=== PATIENT | male | born 1945 | race Caucasian/White ===

== ENCOUNTER 2016-08-29 08:26 | Outpatient (CLI) | payer MEDICARE, OTHER ==
[~2016-08-29 08:26] MED LIST: ACETAMINOPHEN 325 MG TABLET PO PRN; DEXAMETHASONE SOD PHOSPHATE IV PRN; DIPHENHYDRAMINE HCL 25 MG in NORMAL SALINE 50 ML INJ PRN; DIPHENHYDRAMINE HCL 25 MG in NORMAL SALINE 50 ML IV PRN; ELOTUZUMAB IV PRN; FAMOTIDINE INJ/PF 20 MG/2 ML SDV IV PRN; NORMAL SALINE 250 ML IV PRN; NORMAL SALINE IV PRN
[2016-08-29 09:07] VITALS: BP 150/62
== END 2016-08-29 12:30 | disposition home or self-care (01) ==
LOC: II 08:26 → 5TH 08:30 → II 12:30
PROVIDERS: ATTEND Internal Medicine
PROC: 3E03305 Introduction of Other Antineoplastic into Peripheral Vein, Percutaneous Approach (ICD-10-PCS; principal; 2016-08-29)
PROC: 3E033GC Introduction of Other Therapeutic Substance into Peripheral Vein, Percutaneous Approach (ICD-10-PCS; 2016-08-29)
DX: Z51.11 Encounter for antineoplastic chemotherapy (principal); C90.02 Multiple myeloma in relapse
CPT/HCPCS: 96413; 96415; 96367; A9270; J1200; J7050; S0028; J1100; C9477; 96365; 96375

== ENCOUNTER 2016-09-02 19:51 | Observation (INO) | payer MEDICARE, OTHER ==
[2016-09-02] MEDS ORDERED: NORMAL SALINE 1000 ML 1,000 ML IV PRN (20:17)
--- NOTE | 2016-09-02 20:18 | ER Document Report ---
ED Fall - General Stated Complaint: FALL/ALTERED MENTAL STATUS Time seen by provider: 20:18 Mode of Arrival: Stretcher Information source: Relative TRAVEL OUTSIDE OF THE [place] IN LAST 30 DAYS: No - HPI Patient complains to provider of: frequent falls, generalized weakness, confusion Occurred: Other - 2-3 days Where: Home Context: Lost balance Associated symptoms: Difficulty walking Quality of pain: No pain Notes: Patient is a 70-year-old male with a history of multiple myeloma, diabetes and hypertension, brought to the emergency room by for complaints of generalized weakness with frequent falls over the past few days, patient is currently in chemotherapy treatment for his multiple myeloma which he takes orally on a daily basis, patient's reports that over the past 2 days he has been unable to get out of bed due to inability to move his lower extremities , it is difficult to ascertain whether this is due to weakness or neurological disorder, patient himself is a poor historian, unable to provide any details as he cannot remember the falls or how they occurred, he denies any pain at present time and is able to move all extremities without difficulty, denies any recent illness, no nausea, vomiting or diarrhea, no fever or chills, he does have a slight nonproductive cough - Related data Allergies/Adverse Reactions: No Known Allergies Allergy (Unverified 08/15/16 14:33) Home Medications: Current Home Medications Amoxicillin [Amoxicillin] 500 mg PO PRN PRN 09/03/16 [History] Chlorhexidine Gluconate [Periogard 0.12% Oral Rinse 15 ml] 15 ml MM DAILY [History] Dexamethasone [Dexamethasone] 4 mg PO DAILY 09/03/16 [History] Past Medical History - General Information source: Relative - - Social History Smoking Status: Never Smoker Family History: Reviewed & Not Pertinent Review of Systems - Review of Systems Constitutional: Weakness EENT: No symptoms reported Cardiovascular: No symptoms reported Respiratory: Cough Gastrointestinal: No symptoms reported Genitourinary: No symptoms reported Male Genitourinary: No symptoms reported Musculoskeletal: See HPI Skin: No symptoms reported Hematologic/Lymphatic: No symptoms reported Neurological/Psychological: See HPI -: Yes All other systems reviewed and negative Physical Exam - Vital signs Vitals: Temp Pulse Resp BP Pulse Ox 99.1 F 102 H 17 151/66 H 94 09/02/16 19:57 09/02/16 19:57 09/02/16 19:57 09/02/16 19:57 09/02/16 19:57 Interpretation: Tachycardic - General General appearance: Appears well, Alert In distress: None - HEENT Head: Normocephalic, Atraumatic Eyes: Normal Conjunctiva: Normal Extraocular movements intact: Yes Eyelashes: Normal Pupils: PERRL Mucous membranes: Dry - Respiratory Respiratory status: No respiratory distress Chest status: Nontender Breath sounds: Normal Chest palpation: Normal - Cardiovascular Rhythm: Regular Heart sounds: Normal auscultation Murmur: No - Abdominal Inspection: Normal Distension: No distension Bowel sounds: Normal Tenderness: Nontender Organomegaly: No organomegaly - Back Back: Normal, Nontender - Extremities General upper extremity: Normal inspection, Nontender, Normal color, Normal ROM , Normal temperature General lower extremity: Normal inspection, Nontender, Normal color, Normal ROM , Normal temperature, Normal weight bearing. No: Sowmya's sign - Neurological Cognition: Confused Orientation: Disoriented to events Loco Coma Scale Eye Opening: Spontaneous [place] Coma Scale Verbal: Confused Loco Coma Scale Motor: Obeys Commands [place] Coma Scale Total: 14 Speech: Normal Motor strength normal: LUE, RUE, LLE, RLE Sensory: Normal - Psychological Associated symptoms: Normal affect, Normal mood - Skin Skin Temperature: Warm Skin Moisture: Dry Skin Color: Normal Course - Re-evaluation Re-evalutation: 09/03/16 01:13 Patient is unable to ambulate, he remains confused and is slow to answer questions, I discussed with him and at bedside the possibility of admission , patient states that he does not wish to be admitted, however given his current state of confusion and his concerning symptoms I do not believe he has the capacity to make such a decision at the present time, his at bedside is agreeable that patient needs to be admitted for further evaluation and treatment - Vital Signs Vital signs: Temp Pulse Resp BP Pulse Ox 98.8 F 96 14 149/78 H 96 09/03/16 01:22 09/03/16 01:22 09/03/16 01:22 09/03/16 01:22 09/03/16 01:22 - Laboratory Result Diagrams: 09/02/16 21:18 09/02/16 21:18 Laboratory results interpreted by me: 09/02/16 09/02/16 09/02/16 21:18 21:18 22:53 RDW 16.8 H Monocytes % (Manual) 27 H Glucose 117 H Calcium 7.8 L Total Protein 5.3 L Albumin 2.9 L Urine Glucose (UA) 150 H Urine Urobilinogen 4.0 H - Diagnostic Test Radiology reviewed: Image reviewed, Reports reviewed - EKG Interpretation by Me EKG shows normal: Sinus rhythm Rate: Normal - 99 Rhythm: NSR Debary/QRS: RBBB - Consults Dr Faith Time consulted: 20:18 Reason for consultation: 09/02/16 20:18 Patient with a history of multiple myeloma, currently on oral chemotherapy Consulted provider: other Discharge - Discharge Clinical Impression: Acute encephalopathy, Frequent falls Condition: Fair Disposition: ADMITTED OBSERVATION Admitting Provider: Hospitalist Unit Admitted: Telemetry
[2016-09-02 21:36] LABS: HEMATOCRIT 47.5 % (37.9-51.0); HEMOGLOBIN 15.9 g/dL (13.5-17.0); HGB HCT DIFFERENCE 0.2; MEAN CORPUSCULAR HEMOGLOBIN 30.2 pg (27.0-33.4); MEAN CORPUSCULAR HGB CONC 33.6 g/dL (32.0-36.0); MEAN CORPUSCULAR VOLUME 90 fl (80-97); RED BLOOD COUNT 5.28 10^6/uL (4.35-5.55); RED CELL DISTRIBUTION WIDTH 16.8 % (11.5-14.0); WHITE BLOOD COUNT 4.4 10^3/uL (4.0-10.5)
[2016-09-02 21:55] LABS: ALANINE AMINOTRANSFERASE 28 U/L (21-72); ALBUMIN 2.9 g/dL (3.5-5.0); ALKALINE PHOSPHATASE 83 U/L (38-126); ANION GAP 9 (5-19); ASPARTATE AMINO TRANSFERASE 25 U/L (17-59); BLOOD UREA NITROGEN 18 mg/dL (7-20); CALCIUM 7.8 mg/dL (8.4-10.2); CARBON DIOXIDE 25 mmol/L (22-30); CHLORIDE 106 mmol/L (98-107); CREATININE RESULT 1.19 mg/dL (0.52-1.25); GLUCOSE 117 mg/dL (75-110); POTASSIUM 3.9 mmol/L (3.6-5.0); TOTAL PROTEIN 5.3 g/dL (6.3-8.2)
[2016-09-02 22:01] LABS: BASOPHILS % (MANUAL) 0 % (0-2); EOSINOPHILS % (MANUAL) 4 % (0-6); LYMPHOCYTES % (MANUAL) 16 % (13-45); TOTAL CELLS COUNTED 100
[2016-09-02 22:03] LABS: ANISOCYTOSIS 1+; TOXIC GRANULATION SLIGHT
[2016-09-03 00:08] LABS: APPEARANCE,URINE CLEAR; BILIRUBIN,URINE NEGATIVE (NEGATIVE); GLUCOSE, URINE 150 mg/dL (NEGATIVE); KETONES,URINE NEGATIVE (NEGATIVE); LEUKOCYTE ESTERASE,URINE NEGATIVE (NEGATIVE); NITRITE,URINE NEGATIVE (NEGATIVE); PROTEIN,URINE NEGATIVE (NEGATIVE); URINE SPECIFIC GRAVITY 1.017
[2016-09-03 01:47] LABS: MAGNESIUM 2.2 mg/dL (1.6-2.3)
[2016-09-03 01:50] LABS: ALCOHOL < 10 mg/dL (NONE DETECTED)
[2016-09-03 02:34] LABS: URINE BARBITURATES SCREEN NEGATIVE; URINE METHADONE SCREEN NEGATIVE; URINE PHENCYCLIDINE SCREEN NEGATIVE
[2016-09-03] MEDS ORDERED: NORMAL SALINE 1000 ML 1,000 ML IV PRN (07:48)
[2016-09-03 09:05] LABS: CHOLESTEROL 113.84 mg/dL (0-200); Direct HDL 24 mg/dL (>40); TRIGLYCERIDES 151 mg/dL (<150)
[2016-09-03 09:16] LABS: DIRECT LDL 73 mg/dL (<100); VLDL CHOLESTEROL 30.2 mg/dL (10-31)
[2016-09-03] MEDS ORDERED: ACETAMINOPHEN 325 MG TABLET PO PRN (10:16)
--- NOTE | 2016-09-03 10:16 | PDOC H&P ---
History of Present Illness Admission Date/PCP: 09/03/16 07:[address] Blakely, [facility] [address] Faith Patient complains of: altered mental status, gen weak, inability to walk. History of Present Illness: OTTO MIRZA is a 70 year old male with underlying hypothyroidism , and insulin-dependent diabetes mellitus, currently on oral chemotherapy for long-standing multiple myeloma, brought to the emergency room for evaluation of above complaints by his . Patient has been discussed with emergency room physician who evaluated the patient. Patient is globally disoriented and is able to provide no history whatsoever in terms of acute or chronic events, review of systems, personal habits, family history, etc. is present at his side and is quite helpful and informative. No old inpatient records available for review... Diagnosed with multiple myeloma in 1998, with, by 's report, fairly aggressive chemotherapy at that time. Since 1999, he has had slowly progressive bilateral lower extremity neuropathy and ambulatory dysfunction. This has progressed over the last few days to the point now where he is falling frequently and simply is unable to walk. states his physicians are aware of his slowly progressive neuropathy and ambulatory dysfunction. Over the last 2 days, he has become intermittently quite confused, which apparently has been a milder problem in the past, usually associated with patient being "on too much pain medicine," according to . No recent change in his current medications. She controls his medications. No use of alcohol tobacco or illicit drugs. Other than some mild difficulty initiating his urinary stream due to enlarged prostate, there is been no problems voiding. No fecal incontinence. No Nausea vomiting, diarrhea or dysuria, fever or chills. Slight nonproductive cough. No sick contacts or rash. Patient present time is currently resting quietly, denying pain. Laboratory results are listed in [employer] and are reviewed. X-ray summary results are listed below, with full report(s) reviewed. . EKG reviewed . No old EKG available for comparison. Social history/personal habits: . 2 children. Retired. Personal habits as noted above. Family History : Son is bipolar. Brother into surviving siblings, all basically healthy. Father also of multiple myeloma. Mother of complications of Alzheimer's. Allergies/adverse reactions NKDA. Home medications are reviewed from a typed and hand written list provided by and are to be reconciled by nursing staff in [facility]. Home medications initially autopopulated into [facility] may not accurately reflect patient's true medications, dosages, and/or frequencies. Compliant with medications. No recent medication changes. REVIEW OF SYSTEMS: See History and Present Illness. No further information available at this time. PHYSICAL EXAMINATION: 5 feet 9 inches tall. 90.7 kg. BMI 29.5 kg/m. Blood pressure 148/84. Pulse 100 and regular. Respirations are 15 and unlabored. 96% saturation on room air. Temperature 98.8. Slightly obese otherwise well-developed male appearing approximately his stated age. Pleasant awake alert and cooperative. Somewhat anxious, although no tova agitation. Skin is warm and dry. No grossly obvious evidence of rash in areas of skin examined. No subcutaneous nodules palpated. ENT: Hearing grossly normal to normal conversation. Tongue midline on protrusion pink and slightly tacky. Eyes: No scleral icterus. Pupils equal and reactive to light at 4 mm. Rhodes conjunctivae. No raccoon eyes. Neck is supple and nontender to gentle active range of motion and palpation. Midline trachea. No palpable thyroid nodule mass enlargement or tenderness. Lymphatic: No palpable cervical or clavicular nodes. Neck and lymphatic exams limited by patient body habitus. Psychiatric: Globally disoriented. Lungs: Auscultation reveals clear and equal breath sounds bilaterally. No use of accessory respiratory muscles. Cardiovascular: Heart regular rate and rhythm, without gallop murmur or rub. No carotid or abdominal aortic bruits. No ankle or pedal edema. Faintly palpable dorsalis pedis pulses. Abdomen: soft, somewhat obese, nontender with positive bowel sounds. Unable to adequately evaluate abdomen for masses or organomegaly due to body habitus. Extremities: Hands and feet Feet are warm and dry. No calf tenderness to compression. No grossly obvious visual evidence of calf swelling. Gentle manipulation of upper and lower extremities fails to reveal any obvious evidence of injury or instability to involved major joints. Neurologic: Cranial Nerves II through XII are grossly intact. Light touch intact at face, upper extremities; decreased at feet, which is a chronic problem due to the neuropathy, according to . Motor function of major muscle groups upper and lower extremities 5 over 5 and symmetric. Patellar reflexes absent. Absent Babinski. Past Medical History Cardiac Medical History: Reports: Hyperlipidema Denies: Congestive Heart Failure, DVT, Myocardial Infarction, Hypertension, Pulmonary Embolism Pulmonary Medical History: Denies: Asthma, Chronic Obstructive Pulmonary Disease (COPD) EENT Medical History: Reports: Eyes - reading glasses, Throat - Occasional mild dysphagia, which states physicians have attributed to his neuropathy. Denies: Ears Neurological Medical History: Reports: Other - Peripheral neuropathy and ambulatory dysfunction, felt to be secondary to prior chemotherapy for multiple myeloma Denies: Hemorrhagic CVA, Ischemic CVA, Seizures Endocrine Medical History: Reports: Diabetes Mellitus Type 1, Hypothyroidism Denies: Diabetes Mellitus Type 2, Hyperthyroidism Renal/ Medical History: Reports: Other - Prostatic hypertrophy Malignancy Medical History: Reports: Other - Multiple myeloma, diagnosed 1998. GI Medical History: Denies: Cirrhosis, Gastroesophageal Reflux Disease, Hepatitis, Peptic Ulcer Disease Musculoskeltal Medical History: Reports: Arthritis Skin Medical History: Denies: Eczema, Psoriasis Psychiatric Medical History: Reports: Depression - History of Denies: Alcohol Dependency, General Anxiety Disorder, Substance Abuse, Tobacco Dependency Hematology: Reports: Other - Multiple myeloma, diagnosed 1998 Infectious Medical History: Denies: Hepatitis B, Hepatitis C Past Surgical History Past Surgical History: Reports: Orthopedic Surgery - Bilateral shoulder and hip surgery., Tonsillectomy Social History Information Source: Relative, Emergency Med Personnel, [facility] Records Lives with: Spouse/Significant other Smoking Status: Never Smoker Frequency of Alcohol Use: None Drugs: None - Advance Directive Resuscitation Status: Full Code Surrogate healthcare decision maker:: Family History Family History: Reviewed & Not Pertinent Parental Family History Reviewed: Yes Children Family History Reviewed: Yes Sibling(s) Family History Reviewed.: Yes Medication/Allergy Home Medications: Aspirin [Aspirin 81 mg Chewable Tablet] 81 mg PO DAILY 09/03/16 Atorvastatin Calcium [Lipitor 10 mg Tablet] 10 mg PO QHS 09/03/16 Buprenorphine [Butrans] 1 each TD Q5D@1000 09/03/16 Chlorhexidine Gluconate 10 ml MM DAILY 09/03/16 Cyanocobalamin (Vitamin B-12) [Vitamin B-12] 1,000 mcg PO DAILY 09/03/16 Insulin Aspart [Novolog Insulin (Aspart) 100 unit/mL] 8 unit SQ .ASDIR 09/03/16 Levothyroxine Sodium [Synthroid 0.05 mg Tablet] 0.15 mg PO DAILY 09/03/16 Lubiprostone [Amitiza 24 Mcg Capsule] 24 mcg PO Q12 01/11/17 Pregabalin [Lyrica 100 mg Capsule] 100 mg PO TID 09/03/16 Sodium Fluoride [Prevident] 56 gm DT QHS 09/03/16 Tamsulosin HCl [Flomax 0.4 mg Cap.sr] 0.8 mg PO DAILY 09/03/16 Tapentadol Hydrochloride [Nucynta] 50 mg PO TID 09/03/16 Temazepam [Restoril 15 mg Capsule] 15 mg PO QHS 09/03/16 Terazosin HCl 2 mg PO QHS 09/03/16 Testosterone [Testopel] 75 mg [place] .ASDIR 09/03/16 Topiramate [Topamax] 50 mg PO DAILY 09/03/16 Zoledronic Acid 4 mg IV [id number] 09/03/16 Acetaminophen [Tylenol 325 mg Tablet] 650 mg PO Q4HP PRN #0 tablet 09/05/16 Atorvastatin Calcium [Lipitor 10 mg Tablet] 10 mg PO QHS #0 tablet 09/05/16 Azithromycin [Zithromax] 250 mg PO DAILY #5 tablet 09/05/16 Benzonatate [Tessalon Perle 100 mg Capsule] 100 mg PO Q8HP PRN #40 cap 09/05/16 Levothyroxine Sodium [Synthroid 0.15 mg Tablet] 0.15 mg PO QAM #0 tablet Tamsulosin HCl [Flomax 0.4 mg Cap.sr] 0.8 mg PO PCSUPPER #0 cap.sr.24h 09/05/16 Allergies/Adverse Reactions: No Known Allergies Allergy (Unverified 08/15/16 14:33) Physical Exam Vital Signs: Temp Pulse Resp BP Pulse Ox 98.1 F 86 16 123/64 97 09/03/16 08:17 09/03/16 08:17 09/03/16 08:17 09/03/16 08:17 09/03/16 08:17 Results Impressions: Chest X-Ray 09/02/16 20:17 IMPRESSION: NO ACUTE RADIOGRAPHIC FINDING IN THE CHEST. Head CT 09/02/16 20:17 IMPRESSION: MILD CHRONIC CHANGES OF ATROPHY AND MICROVASCULAR ISCHEMIA. NO ACUTE PROCESS. Sinus disease as noted above Assessment & Plan - Diagnosis (1) Diabetes mellitus type 1 Qualifiers: Diabetes mellitus complication status: without complication Qualified Code(s): E10.9 - Type 1 diabetes mellitus without complications Is this a current diagnosis for this admission?: YesPlan: Appropriate diet, with Accu-Cheks and appropriate sliding scale coverage.Resume home medications as appropriate once these have been reviewed. (2) Peripheral neuropathy Qualifiers: Peripheral neuropathy type: polyneuropathy, unspecified Qualified Code(s): G62.9 - Polyneuropathy, unspecified Is this a current diagnosis for this admission?: YesPlan: Per , due to distant prior chemotherapy. Oncology consult. (3) Ambulatory dysfunction Is this a current diagnosis for this admission?: YesPlan: Per , due to distant prior chemotherapy. Oncology consult. Physical therapy consult. I have strongly encouraged patient not to get out of bed without notifying staff , to avoid a fall with injury. Knee high SCDs for DVT prophylaxis, along with subcutaneous Lovenox . Impression and plans were discussed with patient, and , both of whom concur. Time spent in evaluation and management of patient: 78 minutes. (4) Acute encephalopathy Is this a current diagnosis for this admission?: YesPlan: Further imaging studies as for TIA/stroke workup. Hopefully will resolve with time and supportive care. (5) Frequent falls Is this a current diagnosis for this admission?: YesPlan: Physical therapy consult. I have strongly encouraged patient not to get out of bed without notifying staff , to avoid a fall with injury. (6) Multiple myeloma Qualifiers: Multiple myeloma remission status: in relapse Qualified Code(s): C90.02 - Multiple myeloma in relapse Is this a current diagnosis for this admission?: YesPlan: Oncology consult.
[2016-09-03] MEDS ORDERED: DEXTROSE 50%-WATER 25 GM/50 ML DISP.SYRIN IV PRN ×2 (10:25)
[2016-09-03] MEDS ORDERED: INSULIN LISPRO 100 UNIT/ML 3 ML VIAL SUBCUT PRN (10:25)
[2016-09-03] MEDS ORDERED: GLUCAGON,HUMAN RECOMB 1 MG INJ IM PRN (10:25)
[2016-09-03] MEDS ORDERED: DEXTROSE 40% GEL 15 GM TUBE PO PRN ×2 (10:25)
[2016-09-03] MEDS ORDERED: BUPRENORPHINE 20 MCG TD SCH (10:30)
[2016-09-03] MEDS ORDERED: LEVOTHYROXINE SODIUM 0.15 MG TABLET PO ONE (11:00)
--- NOTE | 2016-09-03 12:35 | PDOC CONSULTATION ---
Consultation Consult Date: 09/03/16 Attending physician:: CAS CHAVEZ Consult reason:: Patient with known multiple myeloma, well known to our oncology clinic, here with confusion, falls, weakness History of Present Illness Admission Date/PCP: 09/03/16 07:39 AZALIA WONG Patient complains of: Confusion, falls, weakness History of Present Illness: 70-year-old male well known to our oncology clinic with known history of progressive multiple myeloma. 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 Recently, he was found to have progression about 6 months ago, since that time he's been on a drug called Pomalyst along with dexamethasone. About a month ago we found that his free light chain was rising, consistent with progression, so we decided on adding a new drug called Empliciti, and he has received 2 infusions of that over the last 3 weeks. Over the last 1 week he has experienced increasing weakness, earlier this week he fell and in total he fell about 3 times. He had been refusing to get out of bed per his , we try to get him into our clinic yesterday but at that time he refused. Ultimately he was confused enough that his brought him to the ED. Thus far he has had a CT of the head noncontrast which was negative, he did have labs which were largely unremarkable. UA and urine culture were done, cultures pending. He does have an MRI of the brain planned. Past Medical History Medical History: Other - Known severe peripheral neuropathy Cardiac Medical History: Reports: None Pulmonary Medical History: Reports: None EENT Medical History: Reports: None Neurological Medical History: Reports: None Endocrine Medical History: Reports: Diabetes Mellitus Type 2 Malignancy Medical History: Reports: Other - Multiple myeloma Psychiatric Medical History: Reports: None Past Surgical History Past Surgical History: Reports: Orthopedic Surgery - Bilateral shoulder and hip surgery., Tonsillectomy Social History Lives with: Spouse/Significant other Smoking Status: Never Smoker Frequency of Alcohol Use: None Drugs: None - Advance Directive Resuscitation Status: Full Code Family History Family History: Reviewed & Not Pertinent Parental Family History Reviewed: Yes Children Family History Reviewed: Yes Sibling(s) Family History Reviewed.: Yes Medication/Allergy Home Medications: Aspirin [Aspirin 81 mg Chewable Tablet] 81 mg PO DAILY 08/22/16 Atorvastatin Calcium [Lipitor 10 mg Tablet] 10 mg PO QHS 08/22/16 Buprenorphine [Butrans] 20 mcg TD Q7D 08/22/16 Cynocobalamin 1 tab PO DAILY 08/22/16 Furosemide 10 mg PO DAILY 08/22/16 Insulin Aspart [Novolog Flexpen] 0 unit SUBCUT .SLD SCALE 08/22/16 Insulin Glargine,Hum.rec.anlog [Lantus] 55 unit SQ HSP 08/22/16 Levothyroxine Sodium 150 mcg PO DAILY 08/22/16 Lubiprostone [Amitiza 24 Mcg Capsule] 24 mcg PO BID 08/22/16 Nycinta 50 mg PO TID 08/22/16 Pomalidomide [Pomalyst] 4 mg PO Q21D 08/22/16 Pregabalin [Lyrica 100 Mg Capsule] 100 mg PO TID 08/22/16 Sodium Fluoride/Potassium Nit [Prevident 5000 Enamel Protect] 100 ml DT HSP Tamsulosin HCl [Flomax 0.4 mg Cap.sr] 0.8 mg PO DAILY 08/22/16 Temazepam 45 mg PO HSP 08/22/16 Terazosin HCl 2 mg PO HSP PRN 08/22/16 Testosterone [Testopel] 75 mg [place] Q120D 08/22/16 Amoxicillin [Amoxicillin] 500 mg PO PRN PRN 09/03/16 Chlorhexidine Gluconate [Periogard 0.12% Oral Rinse 15 ml] 15 ml MM DAILY Dexamethasone [Dexamethasone] 4 mg PO DAILY 09/03/16 Allergies/Adverse Reactions: No Known Allergies Allergy (Unverified 08/15/16 14:33) Review of Systems ROS unobtainable: Other - Review of system is negative per patient but there is some concern that there is confusion Constitutional: ABSENT: chills, fever(s), headache(s), weight gain, weight loss Eyes: ABSENT: visual disturbances Ears: ABSENT: hearing changes Cardiovascular: ABSENT: chest pain, dyspnea on exertion, edema, orthropnea, palpitations Respiratory: ABSENT: cough, hemoptysis Gastrointestinal: ABSENT: abdominal pain, constipation, diarrhea, hematemesis, hematochezia, nausea, vomiting Genitourinary: ABSENT: dysuria, hematuria Musculoskeletal: ABSENT: joint swelling Integumentary: ABSENT: rash, wounds Neurological: ABSENT: abnormal gait, abnormal speech, confusion, dizziness, focal weakness, syncope Psychiatric: ABSENT: anxiety, depression, homidical ideation, suicidal ideation Endocrine: ABSENT: cold intolerance, heat intolerance, polydipsia, polyuria Hematologic/Lymphatic: ABSENT: easy bleeding, easy bruising Physical Exam Vital Signs: Temp Pulse Resp BP Pulse Ox 98.1 F 86 16 123/64 97 09/03/16 08:17 09/03/16 08:17 09/03/16 08:17 09/03/16 08:17 09/03/16 08:17 General appearance: PRESENT: no acute distress, well-developed, well-nourished Head exam: PRESENT: atraumatic, normocephalic Eye exam: PRESENT: conjunctiva pink, EOMI, PERRLA. ABSENT: scleral icterus Ear exam: PRESENT: normal external ear exam Mouth exam: PRESENT: moist, tongue midline Neck exam: ABSENT: carotid bruit, JVD, lymphadenopathy, thyromegaly Respiratory exam: PRESENT: clear to auscultation isaiah. ABSENT: rales, rhonchi, wheezes Cardiovascular exam: PRESENT: RRR. ABSENT: diastolic murmur, rubs, systolic murmur Pulses: PRESENT: normal dorsalis pedis pul Vascular exam: PRESENT: normal capillary refill GI/Abdominal exam: PRESENT: normal bowel sounds, soft. ABSENT: distended, guarding, mass, organolmegaly, rebound, tenderness Rectal exam: PRESENT: deferred Extremities exam: PRESENT: full ROM. ABSENT: calf tenderness, clubbing, pedal edema Neurological exam: PRESENT: alert, awake, oriented to person, oriented to place , oriented to time, oriented to situation, CN II-XII grossly intact. ABSENT: motor sensory deficit Psychiatric exam: PRESENT: appropriate affect, normal mood. ABSENT: homicidal ideation, suicidal ideation Skin exam: PRESENT: dry, intact, warm. ABSENT: cyanosis, rash Results Impressions: Chest X-Ray 09/02/16 20:17 IMPRESSION: NO ACUTE RADIOGRAPHIC FINDING IN THE CHEST. Head CT 09/02/16 20:17 IMPRESSION: MILD CHRONIC CHANGES OF ATROPHY AND MICROVASCULAR ISCHEMIA. NO ACUTE PROCESS. Sinus disease as noted above Status: Image reviewed by me Assessment & Plan - Diagnosis (1) Acute encephalopathy Is this a current diagnosis for this admission?: YesPlan: He does appear to have an encephalopathy ongoing, unknown cause at present. So far there is no metabolic derangements, that is his creatinine and calcium is normal, sodium levels are normal. Hemoglobin is stable. CT of the head is negative. Agree with MRI of the brain. Continue with hydration. It could be related to dehydration. I did review the side effect profile of the new drug Empliciti, and there is no note of confusion or mental status changes as possible side effect. (2) Multiple myeloma Qualifiers: Multiple myeloma remission status: in relapse Qualified Code(s): C90.02 - Multiple myeloma in relapse Is this a current diagnosis for this admission?: YesPlan: He does have multiple myeloma in relapse, we would like to continue further therapy as an outpatient. - Time Time Spent: Greater than 70 Minutes Critical Time spent with patient: 35 or more minutes - Inpatient Certification Based on my medical assessment, after consideration of the patient's comorbidities, presenting symptoms, or acuity I expect that the services needed warrant INPATIENT care.: Yes I certify that my determination is in accordance with my understanding of Medicare's requirements for reasonable and necessary INPATIENT services [42 CFR 412.3e].: Yes Medical Necessity: Failure to Improve With Outpatient Therapy, Need For IV Fluids, Risk of Complication if Not Cared For in Hospital
[2016-09-03] MEDS ORDERED: OXYCODONE HCL IR 5 MG TABLET PO PRN (13:02)
[2016-09-03 13:37] LABS: PATH REVIEW PATHOLOGIST REVIEWED
--- NOTE | 2016-09-03 13:40 | EKG REPORT ---
SEVERITY:- ABNORMAL ECG - SINUS TACHYCARDIA MULTIFORM VENTRICULAR PREMATURE COMPLEXES MULT INTERPOLATED VENT PREMATURE COMPLEXES RIGHT BUNDLE BRANCH BLOCK : Confirmed by: Eliana Mix MD 03-Sep-2016 13:38:52
--- NOTE | 2016-09-03 15:39 | PDOC PROGRESS REPORT ---
Subjective Progress Note for:: 09/03/16 Subjective:: OTTO MIRZA is a 70 year old male with underlying hypothyroidism , and insulin-dependent diabetes mellitus, currently on oral chemotherapy for long-standing multiple myeloma, brought to the emergency room for evaluation of above complaints by his . Patient is globally disoriented and is able to provide no history whatsoever in terms of acute or chronic events, review of systems, personal habits, family history, etc. is present at his side and is quite helpful and informative. No old inpatient records available for review... Diagnosed with multiple myeloma in 1998, with, by 's report, fairly aggressive chemotherapy at that time. Since 1999, he has had slowly progressive bilateral lower extremity neuropathy and ambulatory dysfunction. This has progressed over the last few days to the point now where he is falling frequently and simply is unable to walk. states his physicians are aware of his slowly progressive neuropathy and ambulatory dysfunction. Over the last 2 days, he has become intermittently quite confused, which apparently has been a milder problem in the past, usually associated with patient being "on too much pain medicine," according to . No recent change in his current medications. She controls his medications. No use of alcohol tobacco or illicit drugs. Other than some mild difficulty initiating his urinary stream due to enlarged prostate, there is been no problems voiding. No fecal incontinence. No Nausea vomiting, diarrhea or dysuria, fever or chills. Slight nonproductive cough. No sick contacts or rash. Per Oncology: "70-year-old male well known to our oncology clinic with known history of progressive multiple myeloma. 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 Recently, he was found to have progression about 6 months ago, since that time he's been on a drug called Pomalyst along with dexamethasone. About a month ago we found that his free light chain was rising, consistent with progression, so we decided on adding a new drug called Empliciti, and he has received 2 infusions of that over the last 3 weeks. Over the last 1 week he has experienced increasing weakness, earlier this week he fell and in total he fell about 3 times. He had been refusing to get out of bed per his , we try to get him into our clinic yesterday but at that time he refused. Ultimately he was confused enough that his brought him to the ED. Thus far he has had a CT of the head noncontrast which was negative, he did have labs which were largely unremarkable. UA and urine culture were done, cultures pending. He does have an MRI of the brain planned." As well as carotid Dopplers and echocardiogram. I found him conversant and appropriate, aware of his location but unsure of date and time. He is also unsure why he is in hospital, reports that his often exaggerates and just wants to take him off his medications. Physical Exam Vital Signs: Temp Pulse Resp BP Pulse Ox 98.1 F 86 16 123/64 97 09/03/16 08:17 09/03/16 08:17 09/03/16 08:17 09/03/16 08:09/03/16 08:17 General appearance: PRESENT: no acute distress, well-developed Head exam: PRESENT: atraumatic, normocephalic Eye exam: PRESENT: EOMI, PERRLA. ABSENT: conjunctival injection, nystagmus Mouth exam: PRESENT: moist, neck supple Neck exam: PRESENT: full ROM. ABSENT: carotid bruit, JVD Respiratory exam: PRESENT: clear to auscultation isaiah, unlabored Cardiovascular exam: PRESENT: RRR. ABSENT: systolic murmur Pulses: PRESENT: normal carotid pulses, normal radial pulses GI/Abdominal exam: PRESENT: normal bowel sounds, soft. ABSENT: tenderness Musculoskeletal exam: PRESENT: full ROM - Strength is at least 4 out of 5 in the lower extremities Neurological exam: PRESENT: alert, awake, oriented to person, oriented to place. ABSENT: oriented to time, oriented to situation Psychiatric exam: PRESENT: appropriate affect, normal mood Focused psych exam: ABSENT: pressured speech, psychomotor agitation Skin exam: PRESENT: dry, warm Results Impressions: Chest X-Ray 09/02/16 20:17 IMPRESSION: NO ACUTE RADIOGRAPHIC FINDING IN THE CHEST. Head CT 09/02/16 20:17 IMPRESSION: MILD CHRONIC CHANGES OF ATROPHY AND MICROVASCULAR ISCHEMIA. NO ACUTE PROCESS. Sinus disease as noted above Brain MRI with MRA 09/03/16 00:00 IMPRESSION: Moderate white matter disease in the hemispheres, chronic. No MR evidence of acute ischemic change Unremarkable unga May MRA Inflammatory changes paranasal sinuses Head MRI 09/03/16 00:00 IMPRESSION: Moderate white matter disease in the hemispheres, chronic. No MR evidence of acute ischemic change Unremarkable unga May MRA Inflammatory changes paranasal sinuses Assessment & Plan - Diagnosis (1) Acute encephalopathy Is this a current diagnosis for this admission?: YesPlan: Unclear etiology. Evaluation underway. Possibly adverse reaction to medication. (2) Frequent falls Is this a current diagnosis for this admission?: YesPlan: Probably related to progressive neuropathy which is possibly adverse drug reaction to chemotherapy. Other considerations include myopathies related to medications. (3) Ambulatory dysfunction Is this a current diagnosis for this admission?: YesPlan: As above (4) Diabetes mellitus type 1 Qualifiers: Diabetes mellitus complication status: without complication Qualified Code(s): E10.9 - Type 1 diabetes mellitus without complications Is this a current diagnosis for this admission?: YesPlan: Blood sugar borderline low perhaps contributed to some of his presentation. We' ll hold long-acting and cover with sliding scale only for the next 24 hours and readjust as needed. (5) Multiple myeloma Qualifiers: Multiple myeloma remission status: in relapse Qualified Code(s): C90.02 - Multiple myeloma in relapse Is this a current diagnosis for this admission?: YesPlan: Appreciate oncology's input, case discussed with Dr. Faith and by phone (6) Peripheral neuropathy Qualifiers: Peripheral neuropathy type: polyneuropathy, unspecified Qualified Code(s): G62.9 - Polyneuropathy, unspecified Is this a current diagnosis for this admission?: YesPlan: As above - Time Time Spent with patient: 25-34 minutes
[2016-09-03] MEDS ORDERED: (PENDING PHARMACY ID) (Tapentadol Hydrochloride [Nucynta] 50 MG) PO SCH (18:00)
[2016-09-03] MEDS: PREGABALIN 100 MG CAPSULE PO SCH ×2 (18:49→21:29)
[2016-09-03] MEDS ORDERED: LORAZEPAM 0.5 MG TABLET PO PRN (20:30)
[2016-09-03] MEDS ORDERED: LORAZEPAM 0.5 MG TABLET ONE (21:27)
[2016-09-03] MEDS: ATORVASTATIN CALCIUM 10 MG TABLET PO SCH (21:28)
[2016-09-03] MEDS ORDERED: INSULIN GLARGINE,HUM.REC.ANLOG 1,000 UNIT/10 ML UNIT SUBCUT SCH (22:00)
[2016-09-03] MEDS ORDERED: ATORVASTATIN CALCIUM 10 MG TABLET PO SCH (22:00)
[2016-09-04] MEDS: LUBIPROSTONE 24 MCG CAPSULE PO SCH ×3 (00:04→21:40)
[2016-09-04] MEDS: PREGABALIN 100 MG CAPSULE PO SCH ×3 (06:54→21:41)
[2016-09-04 06:59] LABS: HEMATOCRIT 45.9 % (37.9-51.0); HEMOGLOBIN 15.6 g/dL (13.5-17.0); HGB HCT DIFFERENCE 0.9; MEAN CORPUSCULAR HEMOGLOBIN 30.4 pg (27.0-33.4); MEAN CORPUSCULAR VOLUME 89 fl (80-97); RED BLOOD COUNT 5.14 10^6/uL (4.35-5.55); RED CELL DISTRIBUTION WIDTH 16.8 % (11.5-14.0)
[2016-09-04 07:12] LABS: ALANINE AMINOTRANSFERASE 29 U/L (21-72); ALBUMIN 2.8 g/dL (3.5-5.0); ALKALINE PHOSPHATASE 80 U/L (38-126); ANION GAP 9 (5-19); ASPARTATE AMINO TRANSFERASE 22 U/L (17-59); BILIRUBIN,TOTAL 1.1 mg/dL (0.2-1.3); BLOOD UREA NITROGEN 13 mg/dL (7-20); CALCIUM 8.3 mg/dL (8.4-10.2); CARBON DIOXIDE 27 mmol/L (22-30); CHLORIDE 107 mmol/L (98-107); CREATINE KINASE 51 U/L (55-170); CREATININE RESULT 1.09 mg/dL (0.52-1.25); GLUCOSE 85 mg/dL (75-110); PHOSPHORUS 2.2 mg/dL (2.5-4.5); POTASSIUM 3.8 mmol/L (3.6-5.0); SODIUM 142.5 mmol/L (137-145); TOTAL PROTEIN 5.2 g/dL (6.3-8.2)
[2016-09-04] MEDS ORDERED: ENOXAPARIN SODIUM INJ 40 MG/0.4 ML DISP.SYRIN SUBCUT SCH (08:00)
--- NOTE | 2016-09-04 09:03 | PDOC PROGRESS REPORT ---
Subjective Progress Note for:: 09/04/16 Subjective:: Patient very confused overnight, had to be restrained still confused this morning. Physical Exam Vital Signs: Temp Pulse Resp BP Pulse Ox 98.2 F 99 16 142/75 H 99 09/03/16 23:30 09/04/16 03:01 09/04/16 03:01 09/04/16 03:01 09/04/16 03:01 Intake & Output 09/03/16 09/04/16 09/05/16 06:59 06:59 06:59 Intake Total 970 Balance 970 Weight 91.3 kg General appearance: PRESENT: no acute distress, well-developed, well-nourished Head exam: PRESENT: atraumatic, normocephalic Eye exam: PRESENT: conjunctiva pink, EOMI, PERRLA. ABSENT: scleral icterus Ear exam: PRESENT: normal external ear exam Mouth exam: PRESENT: moist, tongue midline Neck exam: ABSENT: carotid bruit, JVD, lymphadenopathy, thyromegaly Respiratory exam: PRESENT: clear to auscultation isaiah. ABSENT: rales, rhonchi, wheezes Cardiovascular exam: PRESENT: RRR. ABSENT: diastolic murmur, rubs, systolic murmur Pulses: PRESENT: normal dorsalis pedis pul Vascular exam: PRESENT: normal capillary refill GI/Abdominal exam: PRESENT: normal bowel sounds, soft. ABSENT: distended, guarding, mass, organolmegaly, rebound, tenderness Rectal exam: PRESENT: deferred Extremities exam: PRESENT: full ROM. ABSENT: calf tenderness, clubbing, pedal edema Neurological exam: PRESENT: altered Skin exam: PRESENT: dry, intact, warm. ABSENT: cyanosis, rash Results Laboratory Results: 09/04/16 06:17 09/04/16 06:17 09/04/16 09/04/16 09/04/16 06:09 06:17 06:17 WBC 4.0 RBC 5.14 Hgb 15.6 Hct 45.9 MCV 89 MCH 30.4 MCHC 34.0 RDW 16.8 H Plt Count 182 Sodium 142.5 Potassium 3.8 Chloride 107 Carbon Dioxide 27 Anion Gap 9 BUN 13 Creatinine 1.09 Est GFR ( Amer) > 60 Est GFR (Non-Af Amer) > 60 Glucose 85 Calcium 8.3 L Phosphorus 2.2 L Total Bilirubin 1.1 AST 22 ALT 29 Alkaline Phosphatase 80 Ammonia < 8.7 L Total Protein 5.2 L Albumin 2.8 L Vitamin B12 971.0 H 09/03/16 09/04/16 15:55 06:17 Creatine Kinase 66 51 L Impressions: Chest X-Ray 09/02/16 20:17 IMPRESSION: NO ACUTE RADIOGRAPHIC FINDING IN THE CHEST. Head CT 09/02/16 20:17 IMPRESSION: MILD CHRONIC CHANGES OF ATROPHY AND MICROVASCULAR ISCHEMIA. NO ACUTE PROCESS. Sinus disease as noted above Brain MRI with MRA 09/03/16 00:00 IMPRESSION: Moderate white matter disease in the hemispheres, chronic. No MR evidence of acute ischemic change Unremarkable nenana May MRA Inflammatory changes paranasal sinuses Carotid Doppler Study 09/03/16 00:00 IMPRESSION: NO HEMODYNAMICALLY SIGNIFICANT STENOSIS. Head MRI 09/03/16 00:00 IMPRESSION: Moderate white matter disease in the hemispheres, chronic. No MR evidence of acute ischemic change Unremarkable nenana May MRA Inflammatory changes paranasal sinuses Assessment & Plan - Diagnosis (1) Acute encephalopathy Is this a current diagnosis for this admission?: YesPlan: Still unknown cause, discussed case with Dr. Mukherjee, plan for lumbar puncture. Continue with close monitoring, discussed removal of restraints and possible removal of IV but we will await lumbar puncture. Had long discussion with as well as admitting physician, spent 45 minutes in discussion. (2) Multiple myeloma Qualifiers: Multiple myeloma remission status: in relapse Qualified Code(s): C90.02 - Multiple myeloma in relapse Is this a current diagnosis for this admission?: YesPlan: Relatively stable, so far we don't see any other end organ damage on lab work. - Time Time Spent with patient: 35 or more minutes Critical Time spent with patient: 35 or more minutes - Inpatient Certification Based on my medical assessment, after consideration of the patient's comorbidities, presenting symptoms, or acuity I expect that the services needed warrant INPATIENT care.: Yes I certify that my determination is in accordance with my understanding of Medicare's requirements for reasonable and necessary INPATIENT services [42 CFR 412.3e].: Yes Medical Necessity: Failure to Improve With Outpatient Therapy, Risk of Complication if Not Cared For in Hospital
[2016-09-04] MEDS ORDERED: ASPIRIN 81 MG TABLET, CHEWABLE PO SCH (10:00)
[2016-09-04] MEDS ORDERED: TAMSULOSIN HCL 0.4 MG CAP.SR.24H PO SCH ×2 (10:00→18:00)
[2016-09-04] MEDS ORDERED: ASPIRIN 81 MG TABLET, ENT COATED PO SCH (10:00)
[2016-09-04] MEDS ORDERED: TOPIRAMATE 25 MG TABLET PO SCH (10:00)
[2016-09-04] MEDS ORDERED: LEVOTHYROXINE SODIUM 0.05 MG TABLET PO SCH (10:00)
[2016-09-04] MEDS ORDERED: DEXAMETHASONE 4 MG TABLET PO SCH (10:00)
[2016-09-04] MEDS: LEVOTHYROXINE SODIUM 0.15 MG TABLET PO SCH (10:06)
[2016-09-04 10:46] LABS: PROTHROMBIN TIME 14.1 SEC (11.4-15.4)
[2016-09-04] MEDS ORDERED: OXYCODONE HCL SR 10 MG TABLET PO ONE (11:44)
[2016-09-04 12:14] LABS: APPEARANCE ALL TUBES CLEAR
[2016-09-04 12:20] LABS: RBC DILUENT USED NONE USED; RBC DILUTION FACTOR 1; RBC SIDE 1 25; RBC SIDE 2 27; TOTAL RBC SQUARES COUNTED 225; WHITE BLOOD CELL,CSF 2 /uL (0-5)
[2016-09-04 12:25] LABS: GLUCOSE,CSF 83 mg/dL (40-70)
--- NOTE | 2016-09-04 14:06 | PDOC PROGRESS REPORT ---
Subjective Progress Note for:: 09/04/16 Subjective:: OTTO MIRZA is a 70 year old male with underlying hypothyroidism , and insulin-dependent diabetes mellitus, currently on oral chemotherapy for long-standing multiple myeloma, brought to the emergency room for evaluation of above complaints by his . Patient is globally disoriented and is able to provide no history whatsoever in terms of acute or chronic events, review of systems, personal habits, family history, etc. is present at his side and is quite helpful and informative. No old inpatient records available for review... Diagnosed with multiple myeloma in 1998, with, by 's report, fairly aggressive chemotherapy at that time. Since 1999, he has had slowly progressive bilateral lower extremity neuropathy and ambulatory dysfunction. This has progressed over the last few days to the point now where he is falling frequently and simply is unable to walk. states his physicians are aware of his slowly progressive neuropathy and ambulatory dysfunction. Over the last 2 days, he has become intermittently quite confused, which apparently has been a milder problem in the past, usually associated with patient being "on too much pain medicine," according to . No recent change in his current medications. She controls his medications. No use of alcohol tobacco or illicit drugs. Other than some mild difficulty initiating his urinary stream due to enlarged prostate, there is been no problems voiding. No fecal incontinence. No Nausea vomiting, diarrhea or dysuria, fever or chills. Slight nonproductive cough. No sick contacts or rash. Per Oncology: "70-year-old male well known to our oncology clinic with known history of progressive multiple myeloma. 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 Recently, he was found to have progression about 6 months ago, since that time he's been on a drug called Pomalyst along with dexamethasone. About a month ago we found that his free light chain was rising, consistent with progression, so we decided on adding a new drug called Empliciti, and he has received 2 infusions of that over the last 3 weeks. Over the last 1 week he has experienced increasing weakness, earlier this week he fell and in total he fell about 3 times. He had been refusing to get out of bed per his , we try to get him into our clinic yesterday but at that time he refused. Ultimately he was confused enough that his brought him to the ED. Thus far he has had a CT of the head noncontrast which was negative, he did have labs which were largely unremarkable. UA and urine culture were done, cultures pending. He does have an MRI of the brain planned." As well as carotid Dopplers and echocardiogram. I found him initially conversant and appropriate, aware of his location but unsure of date and time. He is also unsure why he is in hospital, reports that his often exaggerates and just wants to take him off his medications. However on the night of September 03 he had another episode of extreme confusion, requiring chemical and physical for strains with soft wrist restraints. He has no recollection of this event. Nursing reports extreme agitation and confusion. The morning of September 04 he remembers me by name that we met yesterday, that he is hospitalized at [facility], and was placed there by his for confusion. Physical Exam Vital Signs: Temp Pulse Resp BP Pulse Ox 98.2 F 99 16 142/75 H 99 09/03/16 23:30 09/04/16 03:01 09/04/16 03:01 09/04/16 03:01 09/04/16 03:01 Intake & Output 09/03/16 09/04/16 09/05/16 06:59 06:59 06:59 Intake Total 970 Balance 970 Weight 91.3 kg General appearance: PRESENT: no acute distress, cooperative Head exam: PRESENT: atraumatic, normocephalic Eye exam: PRESENT: EOMI, PERRLA. ABSENT: conjunctival injection, nystagmus, scleral icterus Mouth exam: PRESENT: moist, neck supple, tongue midline Neck exam: PRESENT: full ROM. ABSENT: carotid bruit, JVD, lymphadenopathy, tenderness Respiratory exam: PRESENT: clear to auscultation isaiah, unlabored. ABSENT: accessory muscle use Cardiovascular exam: PRESENT: RRR. ABSENT: systolic murmur Pulses: PRESENT: normal carotid pulses, normal radial pulses GI/Abdominal exam: PRESENT: normal bowel sounds, soft. ABSENT: tenderness Gentrourinary exam: PRESENT: other - Incontinent of urine during the night. ABSENT: scrotal swelling Extremities exam: PRESENT: pedal edema, other. ABSENT: calf tenderness Musculoskeletal exam: PRESENT: ambulatory - Albeit a bit unsteady requiring assistance at the elbow to maintain gait and station Neurological exam: PRESENT: alert, awake, oriented to person, oriented to place , oriented to situation, reflexes normal, other - 2+ reflexes at the patella. ABSENT: motor sensory deficit, aphasic Psychiatric exam: PRESENT: flat affect, normal mood Skin exam: PRESENT: warm, other - Moist Results Laboratory Results: 09/04/16 06:17 09/04/16 06:17 09/04/16 09/04/16 09/04/16 06:09 06:17 06:17 WBC 4.0 RBC 5.14 Hgb 15.6 Hct 45.9 MCV 89 MCH 30.4 MCHC 34.0 RDW 16.8 H Plt Count 182 Sodium 142.5 Potassium 3.8 Chloride 107 Carbon Dioxide 27 Anion Gap 9 BUN 13 Creatinine 1.09 Est GFR ( Amer) > 60 Est GFR (Non-Af Amer) > 60 Glucose 85 Calcium 8.3 L Phosphorus 2.2 L Total Bilirubin 1.1 AST 22 ALT 29 Alkaline Phosphatase 80 Ammonia < 8.7 L Total Protein 5.2 L Albumin 2.8 L Vitamin B12 971.0 H Fluid Tube Number CSF Volume CSF Appearance CSF Color CSF WBC CSF RBC CSF Glucose CSF Total Protein 09/04/16 09/04/16 11:17 11:17 WBC RBC Hgb Hct MCV MCH MCHC RDW Plt Count Sodium Potassium Chloride Carbon Dioxide Anion Gap BUN Creatinine Est GFR ( Amer) Est GFR (Non-Af Amer) Glucose Calcium Phosphorus Total Bilirubin AST ALT Alkaline Phosphatase Ammonia Total Protein Albumin Vitamin B12 Fluid Tube Number 3 CSF Volume 8.5 CSF Appearance CLEAR CSF Color COLORLESS CSF WBC 2 CSF RBC 28 CSF Glucose 83 H CSF Total Protein 61 H 09/03/16 09/04/16 15:55 06:17 Creatine Kinase 66 51 L Impressions: Chest X-Ray 09/02/16 20:17 IMPRESSION: NO ACUTE RADIOGRAPHIC FINDING IN THE CHEST. Head CT 09/02/16 20:17 IMPRESSION: MILD CHRONIC CHANGES OF ATROPHY AND MICROVASCULAR ISCHEMIA. NO ACUTE PROCESS. Sinus disease as noted above Brain MRI with MRA 09/03/16 00:00 IMPRESSION: Moderate white matter disease in the hemispheres, chronic. No MR evidence of acute ischemic change Unremarkable mechoopda May MRA Inflammatory changes paranasal sinuses Carotid Doppler Study 09/03/16 00:00 IMPRESSION: NO HEMODYNAMICALLY SIGNIFICANT STENOSIS. Head MRI 09/03/16 00:00 IMPRESSION: Moderate white matter disease in the hemispheres, chronic. No MR evidence of acute ischemic change Unremarkable mechoopda May MRA Inflammatory changes paranasal sinuses Guidance Fluoroscopy 09/04/16 00:00 IMPRESSION: Lumbar puncture under fluoroscopy. No immediate complication. Lumbar Puncture 09/04/16 00:00 IMPRESSION: Lumbar puncture under fluoroscopy. No immediate complication. Status: Image reviewed by me Assessment & Plan - Diagnosis (1) Acute encephalopathy Is this a current diagnosis for this admission?: YesPlan: Unclear etiology. Evaluation underway. Possibly adverse reaction to medication whether his chemotherapeutic regimen or any one of the number of centrally acting agents he takes for pain control, sleep, muscle spasms, mood, etc. Discussed with his oncologist and we decided to proceed with lumbar puncture to rule out meningitis encephalitis and meningeal spread of his disease. Evaluation so far otherwise has been unrevealing. B12 level is normal , ammonia level is normal. Imaging has been nondiagnostic. MRI did show chronic small vessel ischemic disease not inappropriate for his age. Of note his initial blood glucose was on the low side at 63, unclear what his level was at home. It's possible he had a hypoglycemic episode at home and we are seeing persistent sequela of this event. Blood glucoses since arrival have improved. Stop long-acting narcotics and wean down as many centrally acting agents as his condition will allow. To avoid opioid withdrawal, will start low-dose long- acting oxycodone with supplemental dosing as needed. Overall very frustrating case without any clear etiology or explanation for his worsening mental state, particularly at night. Discussed with his by telephone, all questions asked and answered to the best of my ability. (2) Frequent falls Is this a current diagnosis for this admission?: YesPlan: Probably related to progressive neuropathy which is possibly adverse drug reaction to chemotherapy. Other considerations include myopathies related to medications. Physical therapy as tolerated. (3) Ambulatory dysfunction Is this a current diagnosis for this admission?: YesPlan: As above (4) Diabetes mellitus type 1 Qualifiers: Diabetes mellitus complication status: without complication Qualified Code(s): E10.9 - Type 1 diabetes mellitus without complications Is this a current diagnosis for this admission?: YesPlan: Follow-up hemoglobin A1c. Blood sugar borderline low perhaps contributed to some of his presentation. We'll hold long-acting and cover with sliding scale only for the next 24 hours and readjust as needed. (5) Multiple myeloma Qualifiers: Multiple myeloma remission status: in relapse Qualified Code(s): C90.02 - Multiple myeloma in relapse Is this a current diagnosis for this admission?: YesPlan: Appreciate oncology's input, case discussed with Dr. Faith and by phone. Send CSF for cytology. (6) Peripheral neuropathy Qualifiers: Peripheral neuropathy type: polyneuropathy, unspecified Qualified Code(s): G62.9 - Polyneuropathy, unspecified Is this a current diagnosis for this admission?: YesPlan: As above - Time Time Spent with patient: 35 or more minutes
[2016-09-04] MEDS: ATORVASTATIN CALCIUM 10 MG TABLET PO SCH (21:41)
[2016-09-05] MEDS: PREGABALIN 100 MG CAPSULE PO SCH (06:45)
[2016-09-05 07:05] LABS: HEMATOCRIT 47.3 % (37.9-51.0); HEMOGLOBIN 15.2 g/dL (13.5-17.0); HGB HCT DIFFERENCE -1.7; MEAN CORPUSCULAR HEMOGLOBIN 29.3 pg (27.0-33.4); MEAN CORPUSCULAR HGB CONC 32.1 g/dL (32.0-36.0); MEAN CORPUSCULAR VOLUME 91 fl (80-97); RED BLOOD COUNT 5.17 10^6/uL (4.35-5.55); RED CELL DISTRIBUTION WIDTH 17.1 % (11.5-14.0); WHITE BLOOD COUNT 4.2 10^3/uL (4.0-10.5)
[2016-09-05 07:08] LABS: ALANINE AMINOTRANSFERASE 26 U/L (21-72); ALBUMIN 2.6 g/dL (3.5-5.0); ALKALINE PHOSPHATASE 74 U/L (38-126); ANION GAP 9 (5-19); ASPARTATE AMINO TRANSFERASE 16 U/L (17-59); BLOOD UREA NITROGEN 18 mg/dL (7-20); CARBON DIOXIDE 23 mmol/L (22-30); CHLORIDE 109 mmol/L (98-107); CREATININE RESULT 1.21 mg/dL (0.52-1.25); GLUCOSE 110 mg/dL (75-110); MAGNESIUM 2.1 mg/dL (1.6-2.3); POTASSIUM 3.7 mmol/L (3.6-5.0); SODIUM 141.1 mmol/L (137-145); TOTAL PROTEIN 4.9 g/dL (6.3-8.2)
[2016-09-05 07:24] LABS: BAND NEUTROPHILS % (MANUAL) 1 % (3-5); BASOPHILS % (MANUAL) 0 % (0-2); EOSINOPHILS % (MANUAL) 8 % (0-6); LYMPHOCYTES % (MANUAL) 23 % (13-45); TOTAL CELLS COUNTED 100
[2016-09-05 07:25] LABS: ANISOCYTOSIS 1+
[2016-09-05 07:26] LABS: OVALOCYTES SLIGHT; PLATELET CLUMPS PRESENT
[2016-09-05 08:15] VITALS: BP 129/67
--- NOTE | 2016-09-05 08:45 | PDOC PROGRESS REPORT ---
Subjective Progress Note for:: 09/05/16 Subjective:: Patient had a very good day and night yesterday, does not have any further confusion seems to be back to baseline in terms of mental status. He had lumbar puncture, seem to tolerate that well, initial results are nondiagnostic. Physical Exam Vital Signs: Temp Pulse Resp BP Pulse Ox 98.1 F 83 17 129/67 H 98 09/05/16 08:00 09/05/16 08:00 09/05/16 08:00 09/05/16 08:00 09/05/16 08:00 Intake & Output 09/04/16 09/05/16 09/06/16 06:59 06:59 06:59 Intake Total 970 795 Balance 970 795 Weight 91.3 kg 86.4 kg General appearance: PRESENT: no acute distress, well-developed, well-nourished Head exam: PRESENT: atraumatic, normocephalic Eye exam: PRESENT: conjunctiva pink, EOMI, PERRLA. ABSENT: scleral icterus Ear exam: PRESENT: normal external ear exam Mouth exam: PRESENT: moist, tongue midline Neck exam: ABSENT: carotid bruit, JVD, lymphadenopathy, thyromegaly Respiratory exam: PRESENT: clear to auscultation isaiah. ABSENT: rales, rhonchi, wheezes Cardiovascular exam: PRESENT: RRR. ABSENT: diastolic murmur, rubs, systolic murmur Pulses: PRESENT: normal dorsalis pedis pul Vascular exam: PRESENT: normal capillary refill GI/Abdominal exam: PRESENT: normal bowel sounds, soft. ABSENT: distended, guarding, mass, organolmegaly, rebound, tenderness Rectal exam: PRESENT: deferred Extremities exam: PRESENT: full ROM. ABSENT: calf tenderness, clubbing, pedal edema Neurological exam: PRESENT: alert, awake, oriented to person, oriented to place , oriented to time, oriented to situation, CN II-XII grossly intact. ABSENT: motor sensory deficit Psychiatric exam: PRESENT: appropriate affect, normal mood. ABSENT: homicidal ideation, suicidal ideation Skin exam: PRESENT: dry, intact, warm. ABSENT: cyanosis, rash Results Laboratory Results: 09/05/16 06:41 09/05/16 06:41 09/04/16 09/04/16 09/04/16 06:17 11:17 11:17 WBC RBC Hgb Hct MCV MCH MCHC RDW Plt Count Seg Neutrophils % Lymphocytes % Monocytes % Eosinophils % Basophils % Absolute Neutrophils Absolute Lymphocytes Absolute Monocytes Absolute Eosinophils Absolute Basophils Sodium 142.5 Potassium 3.8 Chloride 107 Carbon Dioxide 27 Anion Gap 9 BUN 13 Creatinine 1.09 Est GFR ( Amer) > 60 Est GFR (Non-Af Amer) > 60 Glucose 85 Calcium 8.3 L Phosphorus 2.2 L Magnesium Total Bilirubin 1.1 AST 22 ALT 29 Alkaline Phosphatase 80 Total Protein 5.2 L Albumin 2.8 L Vitamin B12 971.0 H Fluid Tube Number 3 CSF Volume 8.5 CSF Appearance CLEAR CSF Color COLORLESS CSF WBC 2 CSF RBC 28 CSF Glucose 83 H CSF Total Protein 61 H 09/05/16 09/05/16 06:41 06:41 WBC 4.2 RBC 5.17 Hgb 15.2 Hct 47.3 MCV 91 MCH 29.3 MCHC 32.1 RDW 17.1 H Plt Count 161 Seg Neutrophils % Not Reportable Lymphocytes % Not Reportable Monocytes % Not Reportable Eosinophils % Not Reportable Basophils % Not Reportable Absolute Neutrophils Not Reportable Absolute Lymphocytes Not Reportable Absolute Monocytes Not Reportable Absolute Eosinophils Not Reportable Absolute Basophils Not Reportable Sodium 141.1 Potassium 3.7 Chloride 109 H Carbon Dioxide 23 Anion Gap 9 BUN 18 Creatinine 1.21 Est GFR ( Amer) > 60 Est GFR (Non-Af Amer) 59 L Glucose 110 Calcium 8.0 L Phosphorus Magnesium 2.1 Total Bilirubin 1.0 AST 16 L ALT 26 Alkaline Phosphatase 74 Total Protein 4.9 L Albumin 2.6 L Vitamin B12 Fluid Tube Number CSF Volume CSF Appearance CSF Color CSF WBC CSF RBC CSF Glucose CSF Total Protein 09/03/16 09/04/16 15:55 06:17 Creatine Kinase 66 51 L Impressions: Chest X-Ray 09/02/16 20:17 IMPRESSION: NO ACUTE RADIOGRAPHIC FINDING IN THE CHEST. Head CT 09/02/16 20:17 IMPRESSION: MILD CHRONIC CHANGES OF ATROPHY AND MICROVASCULAR ISCHEMIA. NO ACUTE PROCESS. Sinus disease as noted above Brain MRI with MRA 09/03/16 00:00 IMPRESSION: Moderate white matter disease in the hemispheres, chronic. No MR evidence of acute ischemic change Unremarkable [place] May MRA Inflammatory changes paranasal sinuses Carotid Doppler Study 09/03/16 00:00 IMPRESSION: NO HEMODYNAMICALLY SIGNIFICANT STENOSIS. Head MRI 09/03/16 00:00 IMPRESSION: Moderate white matter disease in the hemispheres, chronic. No MR evidence of acute ischemic change Unremarkable [place] May MRA Inflammatory changes paranasal sinuses Guidance Fluoroscopy 09/04/16 00:00 IMPRESSION: Lumbar puncture under fluoroscopy. No immediate complication. Lumbar Puncture 09/04/16 00:00 IMPRESSION: Lumbar puncture under fluoroscopy. No immediate complication. Assessment & Plan - Diagnosis (1) Acute encephalopathy Is this a current diagnosis for this admission?: YesPlan: Unknown cause, seems resolved now, could be related to medications versus multiple falls because of severe neuropathy, some part of it would be delirium but that seems all resolved now. (2) Multiple myeloma Qualifiers: Multiple myeloma remission status: in relapse Qualified Code(s): C90.02 - Multiple myeloma in relapse Is this a current diagnosis for this admission?: YesPlan: Thus far no evidence of progression, but we will follow up cytology from lumbar puncture to ensure we don't have any sort of leptomeningeal spread. Although would leptomeningeal spread patients do not improve their mental status usually. We will hold his myeloma medications until next week, patient will see us back next week and we will decide where to go from there. - Time Time Spent with patient: 35 or more minutes Critical Time spent with patient: 35 or more minutes Anticipated discharge: Home Within: within 24 hours
[2016-09-05] MEDS: LEVOTHYROXINE SODIUM 0.15 MG TABLET PO SCH (08:49)
[2016-09-05] MEDS ORDERED: DEXAMETHASONE 4 MG TABLET PO SCH (10:00)
--- NOTE | 2016-09-05 10:27 | XCELERA REPORT ---
[address] [address] Transthoracic Echocardiogram Report Name: OTTO MIRZA Age: 70 yrs Gender: Male : 1945 Patient Status: Inpatient Patient Location: [id number]\S\421\[id number]\B Study Date: 09/03/2016 05:25 PM Height: 69 in Weight: 210 lb BSA: 2.1 m2 Procedure: A complete two-dimensional transthoracic echocardiogram was performed (2D, M-mode, spectral and color flow Doppler). The study was technically difficult with many images being suboptimal in quality. Reason For Study: ACUTE ENCEPHALOPATHY, AMBULATORY DYSFUNCTION Ordering Physician: CAS CHAVEZ Performed By: Jane Evans Interpretation Summary The study was technically difficult with many images being suboptimal in quality. The Ejection Fraction estimate is 45-50% Left ventricular systolic function is mildly reduced. The left ventricle is grossly normal size. Not all wall segments were well visualized. Regional wall motion abnormalities cannot be excluded due to limited visualization. LV diastolic function could not be adequately assessed. The right ventricular systolic function is borderline reduced. The right atrium is normal in size The left atrial size is normal. There is no mitral valve stenosis. There is a trace amount of mitral regurgitation There is no aortic valve stenosis No aortic regurgitation is present. There is no tricuspid stenosis. No tricuspid regurgitation. The aortic root is not well visualized. The inferior vena cava was not visualized There is no pericardial effusion. MMode/2D Measurements \T\ Calculations LVIDd: 4.3 cm FS: 21.9 % Ao root diam: 3.6 cm LVOT diam: 2.0 cm LVIDs: 3.3 cm EDV(Teich): 81.0 ml ESV(Teich): 44.8 mlAo root area: 10.0 cm2 LVOT area: 3.3 cm2 EF(Teich): 44.7 % LA dimension: 2.8 cm Doppler Measurements \T\ Calculations MV E max sean: MV P1/2t max sean: Ao V2 max: LV V1 max P.4 cm/sec 102.2 cm/sec 96.6 cm/sec 2.1 mmHg MV P1/2t: 41.9 msec Ao max PG: LV V1 max: 3.7 mmHg 71.7 cm/sec MVA(P1/2t): 5.3 cm2 RAINE(V,D): MV dec slope: 714.6 cm/sec2 2.4 cm2 MV dec time: 0.15 sec PA V2 max: 64.8 cm/sec PA max P.7 mmHg Left Ventricle The left ventricle is grossly normal size. There is borderline concentric left ventricular hypertrophy. Left ventricular systolic function is mildly reduced. The Ejection Fraction estimate is 45-50%. LV diastolic function could not be adequately assessed. Not all wall segments were well visualized. Regional wall motion abnormalities cannot be excluded due to limited visualization. Right Ventricle The right ventricle is mild to moderately dilated. There is normal right ventricular wall thickness. The right ventricular systolic function is borderline reduced. Atria The right atrium is normal in size. The left atrial size is normal. Interarterial septum not well visualized and not well dopplered. Cannot comment on ASD/PFO presence. Mitral Valve The mitral valve leaflets are sclerotic, but show no functional abnormalities. There is no mitral valve stenosis. There is a trace amount of mitral regurgitation. Aortic Valve The aortic valve is not well visualized secondary to technical limitations. There is no aortic valve stenosis. No aortic regurgitation is present. Tricuspid Valve The tricuspid valve is not well visualized secondary to technical limitations. There is no tricuspid stenosis. No tricuspid regurgitation. Pulmonic Valve The pulmonic valve is not well visualized. Great Vessels The aortic root is not well visualized. The inferior vena cava was not visualized. Effusions There is no pericardial effusion. : CAS CHAVEZ > Franco Villafana
--- NOTE | 2016-09-05 17:47 | PDOC DISCHARGE SUMMARY ---
General - Admit/Disc Date/PCP Admission Date/Primary Care Provider: 09/03/16 07:39 AZALIA WONG Discharge Date: 09/05/16 - Discharge Diagnosis (1) Acute encephalopathy Is this a current diagnosis for this admission?: YesSummary: Resolved. Etiology remains unclear. Possibly related to recent change in chemotherapy. 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 (3) Ambulatory dysfunction Is this a current diagnosis for this admission?: Yes (4) Diabetes mellitus type 1 Is this a current diagnosis for this admission?: Yes (5) Multiple myeloma Is this a current diagnosis for this admission?: YesSummary: Per oncology (6) Peripheral neuropathy Is this a current diagnosis for this admission?: YesSummary: As above - Additional Information Resuscitation Status: Full Code Discharge Diet: As Tolerated Discharge Activity: Activity As Tolerated Home Medications: Aspirin [Aspirin 81 mg Chewable Tablet] 81 mg PO DAILY 09/03/16 Atorvastatin Calcium [Lipitor 10 mg Tablet] 10 mg PO QHS 09/03/16 Buprenorphine [Butrans] 1 each TD Q5D@1000 09/03/16 Chlorhexidine Gluconate 10 ml MM DAILY 09/03/16 Cyanocobalamin (Vitamin B-12) [Vitamin B-12] 1,000 mcg PO DAILY 09/03/16 Insulin Aspart [Novolog Insulin (Aspart) 100 unit/mL] 8 unit SQ .ASDIR 09/03/16 Levothyroxine Sodium [Synthroid 0.05 mg Tablet] 0.15 mg PO DAILY 09/03/16 Lubiprostone [Amitiza 24 Mcg Capsule] 24 mcg PO Q12 09/03/16 Pregabalin [Lyrica 100 mg Capsule] 100 mg PO TID 09/03/16 Sodium Fluoride [Prevident] 56 gm DT QHS 09/03/16 Tamsulosin HCl [Flomax 0.4 mg Cap.sr] 0.8 mg PO DAILY 09/03/16 Tapentadol Hydrochloride [Nucynta] 50 mg PO TID 09/03/16 Temazepam [Restoril 15 mg Capsule] 15 mg PO QHS 09/03/16 Terazosin HCl 2 mg PO QHS 09/03/16 Testosterone [Testopel] 75 mg [place] .ASDIR 09/03/16 Topiramate [Topamax] 50 mg PO DAILY 09/03/16 Zoledronic Acid 4 mg IV [id number] 09/03/16 Acetaminophen [Tylenol 325 mg Tablet] 650 mg PO Q4HP PRN #0 tablet 09/05/16 Atorvastatin Calcium [Lipitor 10 mg Tablet] 10 mg PO QHS #0 tablet 09/05/16 Azithromycin [Zithromax] 250 mg PO DAILY #5 tablet 09/05/16 Benzonatate [Tessalon Perle 100 mg Capsule] 100 mg PO Q8HP PRN #40 cap 09/05/16 Levothyroxine Sodium [Synthroid 0.15 mg Tablet] 0.15 mg PO QAM #0 tablet Tamsulosin HCl [Flomax 0.4 mg Cap.sr] 0.8 mg PO PCSUPPER #0 cap.sr.24h 09/05/16 History of Present Illness History of Present Illness: OTTO MIRZA is a 70 year old malewith underlying hypothyroidism, and insulin-dependent diabetes mellitus, currently on oral chemotherapy for long- standing multiple myeloma, brought to the emergency room for evaluation of above complaints by his . Patient is globally disoriented and is able to provide no history whatsoever in terms of acute or chronic events, review of systems, personal habits, family history, etc. is present at his side and is quite helpful and informative. No old inpatient records available for review... Hospital Course Hospital Course: Diagnosed with multiple myeloma in 1998, with, by 's report, fairly aggressive chemotherapy at that time. Since 1999, he has had slowly progressive bilateral lower extremity neuropathy and ambulatory dysfunction. This has progressed over the last few days to the point now where he is falling frequently and simply is unable to walk. states his physicians are aware of his slowly progressive neuropathy and ambulatory dysfunction. Over the last 2 days, he has become intermittently quite confused, which apparently has been a milder problem in the past, usually associated with patient being "on too much pain medicine," according to . No recent change in his current medications. She controls his medications. No use of alcohol tobacco or illicit drugs. Other than some mild difficulty initiating his urinary stream due to enlarged prostate, there is been no problems voiding. No fecal incontinence. No Nausea vomiting, diarrhea or dysuria, fever or chills. Slight nonproductive cough. No sick contacts or rash. Per Oncology: "70-year-old male well known to our oncology clinic with known history of progressive multiple myeloma. 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 Recently, he was found to have progression about 6 months ago, since that time he's been on a drug called Pomalyst along with dexamethasone. About a month ago we found that his free light chain was rising, consistent with progression, so we decided on adding a new drug called Empliciti, and he has received 2 infusions of that over the last 3 weeks. Over the last 1 week he has experienced increasing weakness, earlier this week he fell and in total he fell about 3 times. He had been refusing to get out of bed per his , we try to get him into our clinic yesterday but at that time he refused. Ultimately he was confused enough that his brought him to the ED. Thus far he has had a CT of the head noncontrast which was negative, he did have labs which were largely unremarkable. UA and urine culture were done, cultures pending. He does have an MRI of the brain planned." As well as carotid Dopplers and echocardiogram. I found him initially conversant and appropriate, aware of his location but unsure of date and time. He is also unsure why he is in hospital, reports that his often exaggerates and just wants to take him off his medications. However on the night of September 03 he had another episode of extreme confusion, requiring chemical and physical for strains with soft wrist restraints. He has no recollection of this event. Nursing reports extreme agitation and confusion. The morning of September 04 he remembers me by name that we met yesterday, that he is hospitalized at [facility], and was placed there by his for confusion. He underwent extensive evaluation including MRI of the brain that just showed chronic small vessel ischemic disease but nothing acute or mass and no metastatic disease. He underwent lumbar puncture without difficulty that was equivocal showing a mildly elevated protein and a mildly elevated glucose but Gram stain was negative and no WBCs and no bacteria. CT scan of the head was nondiagnostic. Metabolic evaluation was nondiagnostic. Ultimately no etiology was discovered however the patient returned to his baseline; it was an element of dehydration was improved with IV fluids, however his mental state lagged behind recovery of euvolemic. On the day of discharge the patient is back to baseline and both he and his state he is ready for discharge home. He is hemodynamically stable for same. Case was discussed with oncology who is in agreement with treatment plan. He is to follow-up with his oncologist in 1 week. Physical Exam Vital Signs: Temp Pulse Resp BP Pulse Ox 98.1 F 83 17 129/67 H 98 09/05/16 09:17 09/05/16 09:17 09/05/16 09:17 09/05/16 09:17 09/05/16 09:17 Intake & Output 09/04/16 09/05/16 09/06/16 06:59 06:59 06:59 Intake Total 970 795 Balance 970 795 Weight 91.3 kg 86.4 kg Results Laboratory Results: 09/05/16 06:41 09/05/16 06:41 09/05/16 09/05/16 06:41 06:41 WBC 4.2 RBC 5.17 Hgb 15.2 Hct 47.3 MCV 91 MCH 29.3 MCHC 32.1 RDW 17.1 H Plt Count 161 Seg Neutrophils % Not Reportable Lymphocytes % Not Reportable Monocytes % Not Reportable Eosinophils % Not Reportable Basophils % Not Reportable Absolute Neutrophils Not Reportable Absolute Lymphocytes Not Reportable Absolute Monocytes Not Reportable Absolute Eosinophils Not Reportable Absolute Basophils Not Reportable Sodium 141.1 Potassium 3.7 Chloride 109 H Carbon Dioxide 23 Anion Gap 9 BUN 18 Creatinine 1.21 Est GFR ( Amer) > 60 Est GFR (Non-Af Amer) 59 L Glucose 110 Calcium 8.0 L Magnesium 2.1 Total Bilirubin 1.0 AST 16 L ALT 26 Alkaline Phosphatase 74 Total Protein 4.9 L Albumin 2.6 L 09/03/16 09/04/16 15:55 06:17 Creatine Kinase 66 51 L Impressions: Chest X-Ray 09/02/16 20:17 IMPRESSION: NO ACUTE RADIOGRAPHIC FINDING IN THE CHEST. Head CT 09/02/16 20:17 IMPRESSION: MILD CHRONIC CHANGES OF ATROPHY AND MICROVASCULAR ISCHEMIA. NO ACUTE PROCESS. Sinus disease as noted above Brain MRI with MRA 09/03/16 00:00 IMPRESSION: Moderate white matter disease in the hemispheres, chronic. No MR evidence of acute ischemic change Unremarkable [place] May MRA Inflammatory changes paranasal sinuses Carotid Doppler Study 09/03/16 00:00 IMPRESSION: NO HEMODYNAMICALLY SIGNIFICANT STENOSIS. Head MRI 09/03/16 00:00 IMPRESSION: Moderate white matter disease in the hemispheres, chronic. No MR evidence of acute ischemic change Unremarkable [place] May MRA Inflammatory changes paranasal sinuses Guidance Fluoroscopy 09/04/16 00:00 IMPRESSION: Lumbar puncture under fluoroscopy. No immediate complication. Lumbar Puncture 09/04/16 00:00 IMPRESSION: Lumbar puncture under fluoroscopy. No immediate complication. Qualifiers PATEINT BEING DISCHARGED WITH ANY OF THE FOLLOWING DIAGNOSIS?: No Plan Discharge Plan: Plan is to hold the new chemotherapeutic agents and the dexamethasone with follow-up with oncology in 1 week. Return to emergency department for recurrent and/or his clinic symptoms. Time Spent: Greater than 30 Minutes
[2016-09-08] MEDS ORDERED: (PENDING PHARMACY ID) (Buprenorphine [Butrans] 1 EACH) TD SCH (10:00)
== END 2016-09-05 09:55 | disposition home or self-care (01) ==
LOC: ER 19:51 → UNDOADMOB 09-03 01:45 → EH 09-03 01:45 → 4W 09-03 04:30 → EH 09-03 04:30 → 4W 09-03 07:39
PROVIDERS: ADMIT Family Medicine; ATTEND Family Medicine
PROC: 009U3ZX Drainage of Spinal Canal, Percutaneous Approach, Diagnostic (ICD-10-PCS; principal; 2016-09-04)
DX: G93.40 Encephalopathy, unspecified (principal); R26.2 Difficulty in walking, not elsewhere classified; C90.00 Multiple myeloma not having achieved remission; E10.42 Type 1 diabetes mellitus with diabetic polyneuropathy; Z79.4 Long term (current) use of insulin; Z79.899 Other long term (current) drug therapy; Z92.21 Personal history of antineoplastic chemotherapy
CPT/HCPCS: 93005; 99285; 36415 ×4; 87070; 87086; 87205; 87206; 87116; 82962 ×3; 80307 ×2; 82140; 87252; 82607; 82550 ×2; 83735 ×2; 84100; 84443; 85025 ×2; 85027; 85610; 89050; 82945; 84157; 80053 ×3; 81001; 83036; 80061; 87015; 88162; 93306; 93880; 70551; 70544; 71010; 77003; 62270; 70450; 93010; 97110; 97116; 97163; 97166; G0378 ×3; A9270 ×15; J3490 ×3; G8978; G8979; G8987; G8988; G8989; J1815

== ENCOUNTER 2017-04-30 12:02 | Emergency (ER) | payer MEDICARE, OTHER ==
[2017-04-30] MEDS ORDERED: NORMAL SALINE 1000 ML 1,000 ML IV ONE (12:19)
--- NOTE | 2017-04-30 12:21 | ER Document Report ---
ED Medical Screen (RME) - General Chief Complaint: Abnormal Lab Results Stated Complaint: ABNORMAL LABS Time Seen by Provider: 04/30/17 12:19 Notes: Patient has a history of multiple myeloma. He is currently undergoing chemotherapy. He went for his routine chemotherapy today and it was noticed that he has an elevated white blood cell count as well as an elevated blood sugar. states that patient began with new onset of confusion today. No vomiting or diarrhea. No fevers. Patient brings a copy of the lab work which was done at his oncologist office. TRAVEL OUTSIDE OF THE [place] IN LAST 30 DAYS: No - Related Data Allergies/Adverse Reactions: No Known Allergies Allergy (Verified 04/30/17 12:07) Past Medical History - Social History Frequency of alcohol use: None Drug Abuse: None - Past Medical History Cardiac Medical History: Reports: Hx Hypercholesterolemia Denies: Hx Congestive Heart Failure, Hx DVT, Hx Heart Attack, Hx Hypertension , Hx Pulmonary Embolism Pulmonary Medical History: Denies: Hx Asthma, Hx COPD Neurological Medical History: Denies: Hx Seizures Endocrine Medical History: Reports: Hx Diabetes Mellitus Type 1, Hx Hypothyroidism. Denies: Hx Diabetes Mellitus Type 2, Hx Hyperthyroidism Renal/ Medical History: Denies: Hx Peritoneal Dialysis GI Medical History: Denies: Hx Cirrhosis, Hx Gastroesophageal Reflux Disease, Hx Hepatitis Musculoskeltal Medical History: Reports Hx Arthritis Skin Medical History: Denies Hx Eczema, Denies Hx Psoriasis Psychiatric Medical History: Reports: Hx Depression - History of Infectious Medical History: Denies: Hx Hepatitis Past Surgical History: Reports: Hx Orthopedic Surgery - Bilateral shoulder and hip surgery., Hx Tonsillectomy - Immunizations Hx Diphtheria, Pertussis, Tetanus Vaccination: Yes Physical Exam - Vital signs Vitals: Temp Pulse Resp BP Pulse Ox 97.9 F 109 H 20 125/65 94 04/30/17 12:11 04/30/17 12:11 04/30/17 12:11 04/30/17 12:11 04/30/17 12:11 Course - Vital Signs Vital signs: Temp Pulse Resp BP Pulse Ox 97.9 F 109 H 20 125/65 94 04/30/17 12:11 04/30/17 12:11 04/30/17 12:11 04/30/17 12:11 04/30/17 12:11
[2017-04-30 13:01] LABS: VENOUS BLOOD BASE EXCESS -5.2 mmol/L; VENOUS BLOOD HCO3 18.5 mmol/L (20-32); VENOUS BLOOD PCO2 31.2 mmHg (35-63); VENOUS BLOOD PH 7.39 (7.30-7.42)
--- NOTE | 2017-04-30 13:51 | EKG REPORT ---
SEVERITY:- ABNORMAL ECG - SINUS TACHYCARDIA RIGHT BUNDLE BRANCH BLOCK LAFB : Confirmed by: Daniel Ricci MD 30-Apr-2017 13:50:13
--- NOTE | 2017-04-30 14:20 | ER Document Report ---
ED General - General Information source: Patient, Relative TRAVEL OUTSIDE OF THE [place] IN LAST 30 DAYS: No - HPI Associated symptoms: Other - see above <KATIE CHAVIS - Last Filed: 04/30/17 14:28> <KEYONA HAQUE - Last Filed: 04/30/17 16:40> - General Chief Complaint: Abnormal Lab Results Stated Complaint: ABNORMAL LABS Time Seen by Provider: 04/30/17 12:19 Notes: Patient is a 71 year old male who presents to the ED with complaints of increased confusion and being unsteady on his feet today. Patients blood sugar has been running high, in the 3-400s. Patient went for his chemo today and his spouse informed the nursing staff. Labs were drawn and he was found to have a blood glucose over 500 among another abnormal labs and was sent to the ED for evaluation by Dr. Box. Patient denies nausea, abdominal pain or a headache. Patient has been taking his normal doses of insulin. Patient was in the hospital around for similar symptoms. (KATIE CHAVIS) - Related Data Allergies/Adverse Reactions: No Known Allergies Allergy (Verified 04/30/17 12:07) Past Medical History - General Information source: Patient - Social History Smoking Status: Former Smoker Frequency of alcohol use: None Drug Abuse: None Family History: Reviewed & Not Pertinent Patient has suicidal ideation: No Patient has homicidal ideation: No - Past Medical History Cardiac Medical History: Reports: Hx Hypercholesterolemia Neurological Medical History: Denies: Hx Seizures Endocrine Medical History: Reports: Hx Diabetes Mellitus Type 1, Hx Hypothyroidism Musculoskeltal Medical History: Reports Hx Arthritis Psychiatric Medical History: Reports: Hx Depression - History of Infectious Medical History: Denies: Hx Hepatitis Past Surgical History: Reports: Hx Orthopedic Surgery - Bilateral shoulder and hip surgery., Hx Tonsillectomy - Immunizations Hx Diphtheria, Pertussis, Tetanus Vaccination: Yes <KATIE CHAVIS - Last Filed: 04/30/17 14:28> Review of Systems - Review of Systems Constitutional: See HPI, Weakness EENT: No symptoms reported Cardiovascular: No symptoms reported Respiratory: No symptoms reported Gastrointestinal: See HPI. denies: Abdominal pain, Nausea Genitourinary: No symptoms reported Male Genitourinary: No symptoms reported Musculoskeletal: No symptoms reported Skin: No symptoms reported Hematologic/Lymphatic: No symptoms reported Neurological/Psychological: See HPI, Confusion, Gait changes. denies: Headaches <KATIE CHAVIS - Last Filed: 04/30/17 14:28> Physical Exam - General General appearance: Appears well, Alert In distress: None - HEENT Head: Normocephalic, Atraumatic Eyes: Normal Extraocular movements intact: Yes Pupils: PERRL - Respiratory Respiratory status: No respiratory distress Breath sounds: Normal - Cardiovascular Rhythm: Regular Heart sounds: Normal auscultation Murmur: No - Abdominal Inspection: Normal Tenderness: Nontender - Back Back: Normal. No: CVA tenderness - Extremities General upper extremity: Normal inspection, Normal ROM General lower extremity: Normal inspection, Normal ROM. No: Edema - Neurological Neuro grossly intact: Yes - Psychological Associated symptoms: Normal affect, Normal mood - Skin Skin Temperature: Warm Skin Moisture: Dry Skin Color: Normal <KATIE CHAVIS - Last Filed: 04/30/17 14:28> - Vital signs Vitals: Temp Pulse Resp BP Pulse Ox 97.9 F 109 H 20 125/65 94 04/30/17 12:11 04/30/17 12:11 04/30/17 12:11 04/30/17 12:11 04/30/17 12:11 Course <KATIE CHAVIS - Last Filed: 04/30/17 14:28> - Laboratory Result Diagrams: 04/30/17 14:36 04/30/17 14:36 <KEYONA HAQUE - Last Filed: 04/30/17 16:40> - Re-evaluation Re-evalutation: 04/30/17 15:35 Patient with elevated blood sugar level. He was running about 300 earlier today and is now low but higher than that. He has had some change in his cognition and communication, though he does appear to be communicative and alert here in the emergency department. An EKG obtained at 1303 shows sinus tachycardia at a rate of 106 with normal intervals. He has a right axis deviation. White blood cell count slightly elevated at 14,000. Metabolic panel and urinalysis still pending. He does have a lactic acid level that is slightly elevated 2.5. 04/30/17 16:37 On reexamination at 1635, the patient reports he is feeling better. This is after 1 L of fluid. We rechecked his sugar. It is now 360. The patient missed his midday dose of insulin. We will give that to him now. The and patient are comfortable with discharge home at this time. The slightly elevated white blood cell count is noted. Blood cultures are pending. I have tried to reach the patient's oncologist. I have not received a call back from them yet. We will discharge the patient with advice to follow-up with his oncologist or his primary physician tomorrow or to return to the emergency department if he feels worse or has any other urgent concerns. (KEYONA HAQUE) - Vital Signs Vital signs: Temp Pulse Resp BP Pulse Ox 97.9 F 109 H 14 133/94 H 95 04/30/17 12:11 04/30/17 12:11 04/30/17 14:25 04/30/17 14:25 04/30/17 14:25 - Laboratory Laboratory results interpreted by me: 04/30/17 04/30/17 04/30/17 12:18 12:20 12:20 WBC RDW Seg Neutrophils % Lymphocytes % Monocytes % Absolute Neutrophils VBG pCO2 31.2 L VBG HCO3 18.5 L Sodium BUN Est GFR (Non-Af Amer) Glucose POC Glucose 480 H* Lactic Acid 2.5 H Urine Glucose (UA) 04/30/17 04/30/17 04/30/17 14:36 14:36 15:45 WBC 14.4 H RDW 16.9 H Seg Neutrophils % 93.6 H Lymphocytes % 5.2 L Monocytes % 1.0 L Absolute Neutrophils 13.5 H VBG pCO2 VBG HCO3 Sodium 135.9 L BUN 25 H Est GFR (Non-Af Amer) 57 L Glucose 400 H* POC Glucose Lactic Acid Urine Glucose (UA) >=500 H Discharge <KATIE CHAVIS - Last Filed: 04/30/17 14:28> <KEYONA HAQUE - Last Filed: 04/30/17 16:40> - Discharge Clinical Impression: Diabetes mellitus type 1, Hyperglycemia due to type 1 diabetes mellitus Disposition: HOME, SELF-CARE Instructions: Hyperglycemia ([facility]) Additional Instructions: Continue usual insulin regimen. Follow-up with either Dr. Vianney Garnett [facility] tomorrow. Return to the emergency department if there is any sign of worsening, increasing blood glucose levels, confusion, or any other urgent concerns. Scribe Attestation: 04/30/17 15:38 I personally performed the services described in the documentation, reviewed and edited the documentation which was dictated to the scribe in my presence, and it accurately records my words and actions. (KEYONA HAQUE) Alona[employer] Documentation - Scribe Written by Tamera:: tamera Montez, 04/30/17, 1429 acting as scribe for :: Neida <KATIE CHAVIS - Last Filed: 04/30/17 14:28>
[2017-04-30 14:54] LABS: ABSOLUTE LYMPHOCYTES (AUTO) 0.7 10^3/uL (0.5-4.7); ABSOLUTE MONOCYTES (AUTO) 0.1 10^3/uL (0.1-1.4); ABSOLUTE NEUT (AUTO) 13.5 10^3/uL (1.7-8.2); BASOPHILS % (AUTO) 0.2 % (0-2); HEMATOCRIT 47.5 % (37.9-51.0); HEMOGLOBIN 15.6 g/dL (13.5-17.0); HGB HCT DIFFERENCE -0.7; LYMPHOCYTES % (AUTO) 5.2 % (13-45); MEAN CORPUSCULAR HEMOGLOBIN 31.6 pg (27.0-33.4); MEAN CORPUSCULAR HGB CONC 32.9 g/dL (32.0-36.0); MEAN CORPUSCULAR VOLUME 96 fl (80-97); RED BLOOD COUNT 4.95 10^6/uL (4.35-5.55); RED CELL DISTRIBUTION WIDTH 16.9 % (11.5-14.0); SEGMENTED NEUTROPHILS % (AUTO) 93.6 % (42-78); WHITE BLOOD COUNT 14.4 10^3/uL (4.0-10.5)
[2017-04-30 15:15] LABS: ANION GAP 11 (5-19); BLOOD UREA NITROGEN 25 mg/dL (7-20); CALCIUM 9.2 mg/dL (8.4-10.2); CARBON DIOXIDE 27 mmol/L (22-30); CHLORIDE 98 mmol/L (98-107); CREATININE RESULT 1.25 mg/dL (0.52-1.25); POTASSIUM 4.6 mmol/L (3.6-5.0); SODIUM 135.9 mmol/L (137-145)
[2017-04-30 15:32] LABS: GLUCOSE 400 mg/dL (75-110)
[2017-04-30 16:03] LABS: APPEARANCE,URINE CLEAR; BILIRUBIN,URINE NEGATIVE (NEGATIVE); GLUCOSE, URINE >=500 mg/dL (NEGATIVE); KETONES,URINE NEGATIVE (NEGATIVE); LEUKOCYTE ESTERASE,URINE NEGATIVE (NEGATIVE); NITRITE,URINE NEGATIVE (NEGATIVE); PROTEIN,URINE NEGATIVE (NEGATIVE); URINE SPECIFIC GRAVITY 1.025; UROBILINOGEN,URINE NEGATIVE mg/dL (<2.0)
[2017-04-30] MEDS ORDERED: INSULIN REG, HUMAN 100 UNIT/ML 3 ML VIAL (PYX) SUBCUT ONE (16:36)
[2017-04-30 17:07] VITALS: BP 143/95
== END 2017-04-30 17:08 | disposition home or self-care (01) ==
LOC: ER 12:02
DX: E10.65 Type 1 diabetes mellitus with hyperglycemia (principal); R41.0 Disorientation, unspecified; Z87.891 Personal history of nicotine dependence
CPT/HCPCS: 93005; 99284; 96360; 36415; 87040; 82962; 85025; 80048; 81001; 82803; 83605; 93010; A9270; J7030; J1815

== ENCOUNTER 2017-06-15 11:43 | Emergency (ER) | payer MEDICARE, OTHER ==
--- NOTE | 2017-06-15 12:19 | ER Document Report ---
ED Medical Screen (RME) - General Chief Complaint: Altered Mental Status Stated Complaint: FALL HEAD PAIN Time Seen by Provider: 06/15/17 12:17 Notes: Patient fell this past Thursday in the [employer] parking lot. Patient has a history of multiple myeloma and frequent falls secondary to being off balance. Since the fall the states patient has been confused. Patient denies being confused. There has been no vomiting or fevers. TRAVEL OUTSIDE OF THE [place] IN LAST 30 DAYS: No - Related Data Allergies/Adverse Reactions: No Known Allergies Allergy (Verified 04/30/17 12:07) Past Medical History - Social History Frequency of alcohol use: None Drug Abuse: None - Past Medical History Cardiac Medical History: Reports: Hx Hypercholesterolemia Denies: Hx Congestive Heart Failure, Hx DVT, Hx Heart Attack, Hx Hypertension , Hx Pulmonary Embolism Pulmonary Medical History: Denies: Hx Asthma, Hx COPD Neurological Medical History: Denies: Hx Seizures Endocrine Medical History: Reports: Hx Diabetes Mellitus Type 1, Hx Hypothyroidism. Denies: Hx Diabetes Mellitus Type 2, Hx Hyperthyroidism Renal/ Medical History: Denies: Hx Peritoneal Dialysis GI Medical History: Denies: Hx Cirrhosis, Hx Gastroesophageal Reflux Disease, Hx Hepatitis Musculoskeltal Medical History: Reports Hx Arthritis Skin Medical History: Denies Hx Eczema, Denies Hx Psoriasis Psychiatric Medical History: Reports: Hx Depression - History of Infectious Medical History: Denies: Hx Hepatitis Past Surgical History: Reports: Hx Orthopedic Surgery - Bilateral shoulder and hip surgery., Hx Tonsillectomy - Immunizations Hx Diphtheria, Pertussis, Tetanus Vaccination: Yes Physical Exam - Vital signs Vitals: Temp Pulse Resp BP Pulse Ox 98.5 F 104 H 20 136/62 H 96 06/15/17 12:03 06/15/17 12:03 06/15/17 12:03 06/15/17 12:03 06/15/17 12:03 Course - Vital Signs Vital signs: Temp Pulse Resp BP Pulse Ox 98.5 F 104 H 20 136/62 H 96 06/15/17 12:03 06/15/17 12:03 06/15/17 12:03 06/15/17 12:03 06/15/17 12:03
[2017-06-15 13:50] LABS: ABSOLUTE BASOPHILS # (AUTO) 0.1 10^3/uL (0.0-0.2); ABSOLUTE LYMPHOCYTES (AUTO) 1.2 10^3/uL (0.5-4.7); ABSOLUTE MONOCYTES (AUTO) 2.2 10^3/uL (0.1-1.4); ABSOLUTE NEUT (AUTO) 9.4 10^3/uL (1.7-8.2); BASOPHILS % (AUTO) 0.5 % (0-2); EOSINOPHILS % (AUTO) 0.4 % (0-6); HEMATOCRIT 52.3 % (37.9-51.0); HEMOGLOBIN 17.8 g/dL (13.5-17.0); HGB HCT DIFFERENCE 1.1; MEAN CORPUSCULAR HEMOGLOBIN 31.8 pg (27.0-33.4); MEAN CORPUSCULAR VOLUME 94 fl (80-97); MONOCYTES % (AUTO) 16.8 % (3-13); RED CELL DISTRIBUTION WIDTH 15.9 % (11.5-14.0); SEGMENTED NEUTROPHILS % (AUTO) 73.3 % (42-78); WHITE BLOOD COUNT 12.8 10^3/uL (4.0-10.5)
--- NOTE | 2017-06-15 13:51 | RADIOLOGY REPORT (SQ) ---
EXAM DESCRIPTION: CT HEAD WITHOUT COMPLETED DATE/TIME: 06/15/2017 1:32 pm REASON FOR STUDY: fall/ams COMPARISON: AP chest 09/02/2016 TECHNIQUE: Axial images acquired through the brain without intravenous contrast. Images reviewed wi th bone, brain and subdural windows. Images stored on PACS. All CT scanners at this facility use dose modulation, iterative reconstruction, and/or weight based d osing when appropriate to reduce radiation dose to as low as reasonably achievable (ALARA). [facility]: Dose Right [facility]: CareDose [facility]: Dose Right [facility]: Teradose 4D [facility]: [employer] RADIATION DOSE: Up-to-date CT equipment and radiation dose reduction techniques were employed. CTDIv ol: 64.6 mGy. DLP: 1292 mGy-cm. mGy. LIMITATIONS: None. FINDINGS: VENTRICLES: Normal size and contour. CEREBRUM: No masses. No hemorrhage. No midline shift. No evidence for acute infarction. Stable spo tty low attenuation in the bifrontal and biparietal deep and subcortical white matter from chronic sm all vessel ischemic change. CEREBELLUM: No masses. No hemorrhage. No alteration of density. No evidence for acute infarction. EXTRAAXIAL SPACES: No fluid collections. No masses. ORBITS AND GLOBE: No intra- or extraconal masses. Normal contour of globe without masses. CALVARIUM: No fracture. PARANASAL SINUSES: No fluid or mucosal thickening. SOFT TISSUES: No mass or hematoma. OTHER: No other significant finding. IMPRESSION: No acute findings. EVIDENCE OF ACUTE STROKE: NO. COMMENT: Quality ID # [id number]: Final reports with documentation of one or more dose reduction techniques (e.g., Automated exposure control, adjustment of the mA and/or kV according to patient size, use of iterative reconstruction technique) TECHNICAL DOCUMENTATION: JOB ID: [id number]- All Rights Reserved
[2017-06-15 13:54] LABS: APPEARANCE,URINE CLEAR; BILIRUBIN,URINE NEGATIVE (NEGATIVE); GLUCOSE, URINE >=500 mg/dL (NEGATIVE); KETONES,URINE 20 mg/dL (NEGATIVE); LEUKOCYTE ESTERASE,URINE NEGATIVE (NEGATIVE); NITRITE,URINE NEGATIVE (NEGATIVE); PROTEIN,URINE 30 mg/dL (NEGATIVE); URINE SPECIFIC GRAVITY 1.023; UROBILINOGEN,URINE NEGATIVE mg/dL (<2.0)
[2017-06-15 14:00] LABS: ALANINE AMINOTRANSFERASE 24 U/L (21-72); ALBUMIN 3.9 g/dL (3.5-5.0); ALKALINE PHOSPHATASE 88 U/L (38-126); ANION GAP 14 (5-19); ASPARTATE AMINO TRANSFERASE 17 U/L (17-59); BILIRUBIN,DIRECT 0.6 mg/dL (0.0-0.4); BILIRUBIN,TOTAL 2.5 mg/dL (0.2-1.3); BLOOD UREA NITROGEN 17 mg/dL (7-20); CALCIUM 9.3 mg/dL (8.4-10.2); CARBON DIOXIDE 23 mmol/L (22-30); CHLORIDE 103 mmol/L (98-107); CREATININE RESULT 0.98 mg/dL (0.52-1.25); GLUCOSE 284 mg/dL (75-110); POTASSIUM 3.9 mmol/L (3.6-5.0); SODIUM 139.8 mmol/L (137-145)
[2017-06-15 14:20] VITALS: BP 131/70
--- NOTE | 2017-06-15 14:48 | ER Document Report ---
ED Fall - General Mode of Arrival: Ambulatory Information source: Patient - and TRAVEL OUTSIDE OF THE [place] IN LAST 30 DAYS: No - HPI Patient complains to provider of: Fall Occurred: Other - 3 days ago Where: Outdoors - [employer] parking lot Associated symptoms: Other - see notes above. denies: Lost consciousness Location of injury/pain: Head - right forehead <DERICK JAMIL - Last Filed: 06/15/17 23:01> <MELIA ROY - Last Filed: 06/15/17 23:04> - General Chief Complaint: Altered Mental Status Stated Complaint: FALL HEAD PAIN Time Seen by Provider: 06/15/17 12:17 Notes: 71 year old male with history of multiple myeloma, diabetes, hypertension, hypercholesterolemia, and neuropathy of the bilateral feet presents to the ED accompanied by his who states that the patient fell 3 days ago in a [employer] parking lot. explains that the patient was found by an employee after he wandered off from her. states that the patient did not lose consciousness, but has been confused since the fall. Patient refused to come to the ED after the fall. Yesterday, the patient was 'not himself' and didn't recognize his or where he was. The patient has improved today and is able to answer questions correctly. Patient reports that he does not remember hitting his head and states that he is feeling 'OK' and denies any pain. Patient denies chills, nausea, sore throat, ear ache, no weakness, fever or vomiting. says that the patient has recently stopped using his walker and is only using his cane. Patient is not on any blood thinning medications, except for a daily baby aspirin. Patient suddenly developed trouble walking and loss of balance on New Years and the has been concerned since the patient has been falling frequently since then. Patient was hospitalized for 1 week since this episode, but all tests were negative. (DERICK JAMIL) - Related data Allergies/Adverse Reactions: No Known Allergies Allergy (Verified 04/30/17 12:07) Past Medical History - General Information source: Patient - and - Social History Smoking Status: Former Smoker Cigarette use (# per day): No Chew tobacco use (# tins/day): No Frequency of alcohol use: None Drug Abuse: None Family History: Reviewed & Not Pertinent Patient has suicidal ideation: No Patient has homicidal ideation: No - Past Medical History Cardiac Medical History: Reports: Hx Hypercholesterolemia, Hx Hypertension Denies: Hx Congestive Heart Failure, Hx DVT, Hx Heart Attack, Hx Pulmonary Embolism Pulmonary Medical History: Denies: Hx Asthma, Hx COPD Neurological Medical History: Denies: Hx Seizures Endocrine Medical History: Reports: Hx Diabetes Mellitus Type 1, Hx Hypothyroidism. Denies: Hx Diabetes Mellitus Type 2, Hx Hyperthyroidism Renal/ Medical History: Denies: Hx Peritoneal Dialysis Malignancy Medical History: Reports Other - multiple myeloma GI Medical History: Denies: Hx Cirrhosis, Hx Gastroesophageal Reflux Disease, Hx Hepatitis Musculoskeltal Medical History: Reports Hx Arthritis Skin Medical History: Denies Hx Eczema, Denies Hx Psoriasis Psychiatric Medical History: Reports: Hx Depression - History of Infectious Medical History: Denies: Hx Hepatitis Past Surgical History: Reports: Hx Orthopedic Surgery - Bilateral shoulder and hip surgery., Hx Tonsillectomy - Immunizations Hx Diphtheria, Pertussis, Tetanus Vaccination: Yes <DERICK JAMIL - Last Filed: 06/15/17 23:01> Review of Systems - Review of Systems Constitutional: See HPI, Other - Fall 3 days ago. denies: Chills, Fever, Weakness EENT: No symptoms reported. denies: Ear pain, Throat pain Cardiovascular: No symptoms reported Respiratory: No symptoms reported Gastrointestinal: No symptoms reported. denies: Nausea Genitourinary: No symptoms reported Male Genitourinary: No symptoms reported Musculoskeletal: No symptoms reported Skin: No symptoms reported Hematologic/Lymphatic: No symptoms reported Neurological/Psychological: See HPI, Confusion. denies: Weakness, Lost consciousness -: Yes All other systems reviewed and negative <DERICK JAMIL - Last Filed: 06/15/17 23:01> Physical Exam <DERICK JAMIL - Last Filed: 06/15/17 23:01> <MELIA ROY - Last Filed: 06/15/17 23:04> - Vital signs Vitals: Temp Pulse Resp BP Pulse Ox 98.5 F 104 H 20 136/62 H 96 06/15/17 12:03 06/15/17 12:03 06/15/17 12:03 06/15/17 12:03 06/15/17 12:03 - Notes Notes: GENERAL: Alert, interacts well. No acute distress. HEAD: See skin exam below. EYES: Pupils equal, round, and reactive to light. Extraocular movements intact. ENT: Oral mucosa moist, tongue midline. NECK: Full range of motion. Supple. Trachea midline. LUNGS: Clear to auscultation bilaterally, no wheezes, rales, or rhonchi. No respiratory distress. HEART: Regular rate and rhythm. No murmurs, gallops, or rubs. ABDOMEN: Soft, non-tender. Non-distended. Bowel sounds present in all 4 quadrants. EXTREMITIES: Moves all 4 extremities spontaneously. No edema, radial and dorsalis pedis pulses 2/4 bilaterally. No cyanosis. NEUROLOGICAL: Alert and oriented x3; Patient was unable to tell the year, but knew it was May and that is soon. Normal speech. Patellar DTR 2+ bilaterally. PSYCH: Normal affect, normal mood. SKIN: Warm, dry, normal turgor. 1.5 cm laceration to the right side of forehead. (DERICK JAMIL) Course - Laboratory Result Diagrams: 06/15/17 13:20 06/15/17 13:20 <DERICK JAMIL - Last Filed: 06/15/17 23:01> - Laboratory Result Diagrams: 06/15/17 13:20 06/15/17 13:20 <MELIA ROY - Last Filed: 06/15/17 23:04> - Re-evaluation Re-evalutation: 06/15/17 14:55 CBC shows elevated white blood cell count 12.8, elevated hemoglobin 17.8, and patient state that these are chronic for him with his multiple myeloma, CMP shows elevated glucose at 284 which they also say is chronic given his dexamethasone use, they do have insulin at home and know how to use sliding scale coverage, they were recommended to increase the sliding scale somewhat. Total and direct bilirubin is somewhat elevated but there is no evidence of obstruction, no abdominal tenderness palpation, no suspicion for biliary obstruction or gallbladder disease. Urinalysis shows greater than 500 glucose and 20 ketones, patient is not in diabetic ketoacidosis. CT scan of the head does not show any acute intracranial hemorrhage. Patient is actually completely oriented with the exception of not knowing what the year is however he knows it is about , he knows who the president is and he knows what month it is. At this time I see no acute altered mental status that would merit further investigation or admission, states he has actually had several episodes like this before where he has been confused 1 day and then normal the next. does note that sometimes his mental status worsens as the day goes on, she is wearing he may have some Alzheimer's. Discussed with and patient that they may wish to be evaluated for dementia by a neurologist. They are both agreeable to being discharged to home at this time. (MELIA ROY) - Vital Signs Vital signs: Temp Pulse Resp BP Pulse Ox 98.8 F 96 12 131/70 H 95 06/15/17 14:19 06/15/17 14:19 06/15/17 14:19 06/15/17 14:19 06/15/17 14:19 - Laboratory Laboratory results interpreted by me: 06/15/17 06/15/17 06/15/17 13:20 13:20 13:20 WBC 12.8 H RBC 5.60 H Hgb 17.8 H Hct 52.3 H RDW 15.9 H Lymphocytes % 9.0 L Monocytes % 16.8 H Absolute Neutrophils 9.4 H Absolute Monocytes 2.2 H Glucose 284 H Total Bilirubin 2.5 H Direct Bilirubin 0.6 H Urine Protein 30 H Urine Glucose (UA) >=500 H Urine Ketones 20 H Discharge <DERICK JAMIL - Last Filed: 06/15/17 23:01> <MELIA ROY - Last Filed: 06/15/17 23:04> - Discharge Clinical Impression: Frequent falls Multiple myeloma Qualifiers: Multiple myeloma remission status: unspecified Qualified Code(s): C90.00 - Multiple myeloma not having achieved remission Type 2 diabetes mellitus, with long-term current use of insulin Qualifiers: Diabetes mellitus complication status: with hyperglycemia Qualified Code(s): E11.65 - Type 2 diabetes mellitus with hyperglycemia Concussion Qualifiers: Encounter type: initial encounter Loss of consciousness presence/duration: without LOC Qualified Code(s): S06.0X0A - Concussion without loss of consciousness, initial encounter Forehead laceration Qualifiers: Encounter type: initial encounter Qualified Code(s): S01.81XA - Laceration without foreign body of other part of head, initial encounter Condition: Stable Disposition: HOME, SELF-CARE Additional Instructions: Please return should he become confused again, developed facial droop, weakness on one side of his body or the other or any new or concerning symptoms. Please wash the laceration to his forehead twice a day with soap and water, pat dry and then apply antibiotic ointment. For your concerns regarding possible Alzheimer's or other age-related dementia you may wish to be evaluated by a neurologist. Forms: Elevated Blood Pressure Scribe Attestation: 06/15/17 23:04 I personally performed the services described in the documentation, reviewed and edited the documentation which was dictated to the scribe in my presence, and it accurately records my words and actions. (MELIA ROY) Scribe Documentation - Scribe Written by Shalini:: Shalini Hill, 06/15/2017 1550 acting as scribe for :: Yobani <DERICK JAMIL - Last Filed: 06/15/17 23:01>
== END 2017-06-15 15:02 | disposition home or self-care (01) ==
LOC: ER 11:43
DX: S06.0X0A Concussion without loss of consciousness, initial encounter (principal); S01.81XA Laceration without foreign body of other part of head, initial encounter; R41.82 Altered mental status, unspecified; C90.00 Multiple myeloma not having achieved remission; E11.65 Type 2 diabetes mellitus with hyperglycemia; W01.0XXA Fall on same level from slipping, tripping and stumbling without subsequent striking against object, initial encounter; Y92.481 Parking lot as the place of occurrence of the external cause; Z91.81 History of falling; E78.00 Pure hypercholesterolemia, unspecified; I10 Essential (primary) hypertension; E03.9 Hypothyroidism, unspecified; Z87.891 Personal history of nicotine dependence; Z79.82 Long term (current) use of aspirin
CPT/HCPCS: 36415; 70450; 80053; 81001; 85025; 99285

== ENCOUNTER → 2017-09-28 | Outpatient (CLI) | payer MEDICARE, OTHER ==
--- NOTE | 2017-09-28 15:53 | RADIOLOGY REPORT (SQ) ---
EXAM DESCRIPTION: BONE SURVEY COMPLETE COMPLETED DATE/TIME: 09/28/2017 3:37 pm REASON FOR STUDY: MYELOMA C90.02 MULTIPLE MYELOMA IN RELAPSE COMPARISON: Skeletal survey 02/06/2016, 08/09/2014 CT brain 06/15/2017 MRI brain 09/03/2016 TECHNIQUE: Images of the axial and proximal appendicular skeleton are obtained, along with lateral s kull and frontal chest films. LIMITATIONS: None. FINDINGS: AP CHEST: Right anterior 6th rib fracture, new compared to bone survey 02/06/2016. Lungs c lear. Cardiac silhouette size lorraine unremarkable. LATERAL SKULL: No worrisome bone lesions. AP BOTH HUMERI: No worrisome bone lesions. Old surgical tacks right humeral head greater tuberosity from prior rotator cuff repair TWO-VIEW LUMBAR SPINE: No worrisome bone lesions. No compression deformities TWO-VIEW THORACIC SPINE: No worrisome bone lesions. No compression deformities TWO VIEW CERVICAL SPINE: No worrisome bone lesions. Degenerative disc space narrowing at C5-6. Yoni cified carotid bifurcations. AP PELVIS: No worrisome bone lesions. AP BOTH FEMURS: No worrisome bone lesions. Bilateral hip replacements OTHER: No other significant finding. IMPRESSION: NO WORRISOME BONE LESIONS. TECHNICAL DOCUMENTATION: JOB ID: [id number] [employer]- All Rights Reserved
== END ==
LOC: RAD 14:57
PROVIDERS: ATTEND Physician Assistant Medical
DX: C90.02 Multiple myeloma in relapse (principal)
CPT/HCPCS: 77075

== ENCOUNTER → 2018-06-02 | Outpatient (CLI) | payer MEDICARE, OTHER ==
--- NOTE | 2018-06-02 12:33 | RADIOLOGY REPORT (SQ) ---
EXAM DESCRIPTION: CT HEAD WITHOUT COMPLETED DATE/TIME: 06/02/2018 12:21 pm REASON FOR STUDY: DIZZNESS R42 DIZZINESS AND GIDDINESS COMPARISON: CT brain 06/15/2017, 09/02/2016 TECHNIQUE: Axial images acquired through the brain without intravenous contrast. Images reviewed wi th bone, brain and subdural windows. Additional sagittal and coronal reconstructions were generated. Images stored on PACS. All CT scanners at this facility use dose modulation, iterative reconstruction, and/or weight based d osing when appropriate to reduce radiation dose to as low as reasonably achievable (ALARA). [facility]: Dose Right [facility]: CareDose [facility]: Dose Right [facility]: Teradose 4D [facility]: [employer] RADIATION DOSE: CT Rad equipment meets quality standard of care and radiation dose reduction techniq ues were employed. CTDIvol: 53.2 mGy. DLP: 1044 mGy-cm. mGy. LIMITATIONS: None. FINDINGS: VENTRICLES: Normal size and contour. CEREBRUM: No masses. No hemorrhage. No midline shift. No evidence for acute infarction. Normal gra y/white matter differentiation. No areas of low density in the white matter. CEREBELLUM: No masses. No hemorrhage. No alteration of density. No evidence for acute infarction. EXTRAAXIAL SPACES: No fluid collections. No masses. ORBITS AND GLOBE: No intra- or extraconal masses. Post bilateral cataract surgery. CALVARIUM: No fracture. PARANASAL SINUSES: No fluid or mucosal thickening. SOFT TISSUES: No mass or hematoma. OTHER: No other significant finding. IMPRESSION: No acute findings EVIDENCE OF ACUTE STROKE: NO. COMMENT: Quality ID # [id number]: Final reports with documentation of one or more dose reduction techniques (e.g., Automated exposure control, adjustment of the mA and/or kV according to patient size, use of iterative reconstruction technique) TECHNICAL DOCUMENTATION: JOB ID: [id number] [employer]- All Rights Reserved Reading location - IP/workstation name: [email or web address]
== END ==
LOC: RAD 11:18
PROVIDERS: ATTEND Family Medicine
DX: R42 Dizziness and giddiness (principal)
CPT/HCPCS: 70450

== ENCOUNTER → 2018-06-18 | Outpatient (CLI) | payer MEDICARE, OTHER ==
--- NOTE | 2018-06-18 14:12 | RADIOLOGY REPORT (SQ) ---
EXAM DESCRIPTION: CAROTID DOPPLER COMPLETED DATE/TIME: 06/18/2018 2:03 pm REASON FOR STUDY: DIZZINESS R42 DIZZINESS AND GIDDINESS COMPARISON: August 2016 TECHNIQUE: Grayscale ultrasound, Doppler velocity and spectra, and color Doppler images acquired of the extra-cranial carotid and vertebral arteries. Images stored on PACS. LIMITATIONS: None. FINDINGS: RIGHT CAROTID CCA Velocities: Within normal limits. ICA Velocities Peak systolic 1.2 m/s. End diastolic 0.22 m/s. Proximal ICA/CCA peak systolic ratio 1.5. Complex heterogeneous atherosclerotic plaquing is identified. LEFT CAROTID CCA Velocities: Within normal limits. ICA Velocities Peak systolic 1.2 m/s. End diastolic 0.16 m/s. Proximal ICA/CCA peak systolic ratio 1.3. The complex heterogeneous atherosclerotic plaquing is identified. VERTEBRAL ARTERIES: Antegrade flow. Normal waveforms. SUBCLAVIAN ARTERIES: No finding. OTHER: No other significant finding. IMPRESSION: NO HEMODYNAMICALLY SIGNIFICANT STENOSIS. COMMENT: Quality ID #[id number]: Velocity criteria are extrapolated from the diameter data as defined by t he Society of Radiologists in Ultrasound Consensus Conference. Radiology 2003: 229; 340-346. TECHNICAL DOCUMENTATION: JOB ID: [id number] [employer]- All Rights Reserved Reading location - IP/workstation name: [email or web address]
== END ==
LOC: RAD 12:49
PROVIDERS: ATTEND Family Medicine
DX: R42 Dizziness and giddiness (principal)
CPT/HCPCS: 93880

== ENCOUNTER 2018-11-08 11:45 | Inpatient (IN) | payer MEDICARE, OTHER ==
--- NOTE | 2018-11-08 12:39 | ER Document Report ---
ED Dizziness/Weakness - General Chief Complaint: General Weakness Stated Complaint: GENERAL WEAKNESS Time Seen by Provider: 11/08/18 12:13 Notes: 73-year-old male with multiple myeloma in relapse is followed by Dr. Faith, coronary artery disease, hyperlipidemia, insulin dependent diabetes mellitus, hypertension, BPH presents to the emergency department for altered mental status and generalized weakness. He started a new line of chemotherapy 1 week ago and his states that since then he has had personality changes. He is also had multiple falls due to severe diabetic neuropathy. He denies any nausea, vomiting, diarrhea. Denies any shortness of breath or chest pain. Does complain of a productive cough. Complains of generalized body pain. Denies any urinary symptoms. Complains of being lightheaded. TRAVEL OUTSIDE OF THE [place] IN LAST 30 DAYS: No - Related Data Allergies/Adverse Reactions: No Known Allergies Allergy (Verified 11/08/18 12:38) Past Medical History - Social History Smoking Status: Unknown if Ever Smoked Family History: Reviewed & Not Pertinent - Past Medical History Cardiac Medical History: Reports: Hx Hypercholesterolemia, Hx Hypertension Denies: Hx Congestive Heart Failure, Hx DVT, Hx Heart Attack, Hx Pulmonary Embolism Pulmonary Medical History: Denies: Hx Asthma, Hx COPD Neurological Medical History: Denies: Hx Seizures Endocrine Medical History: Reports: Hx Diabetes Mellitus Type 1, Hx Hypothyroidism. Denies: Hx Diabetes Mellitus Type 2, Hx Hyperthyroidism Renal/ Medical History: Denies: Hx Peritoneal Dialysis GI Medical History: Denies: Hx Cirrhosis, Hx Gastroesophageal Reflux Disease, Hx Hepatitis Musculoskeletal Medical History: Reports Hx Arthritis Skin Medical History: Denies Hx Eczema, Denies Hx Psoriasis Psychiatric Medical History: Reports: Hx Depression - History of Infectious Medical History: Denies: Hx Hepatitis Past Surgical History: Reports: Hx Orthopedic Surgery - Bilateral shoulder and hip surgery., Hx Tonsillectomy - Immunizations Hx Diphtheria, Pertussis, Tetanus Vaccination: Yes Review of Systems - Review of Systems Constitutional: See HPI EENT: See HPI Cardiovascular: See HPI Respiratory: See HPI Gastrointestinal: See HPI Genitourinary: No symptoms reported Male Genitourinary: No symptoms reported Musculoskeletal: No symptoms reported Skin: No symptoms reported Hematologic/Lymphatic: No symptoms reported Neurological/Psychological: See HPI Physical Exam - Vital signs Vitals: Temp Pulse Resp BP Pulse Ox 99.1 F 107 H 18 121/64 94 11/08/18 11:45 11/08/18 11:45 11/08/18 11:45 11/08/18 11:45 11/08/18 11:45 - Notes Notes: PHYSICAL EXAMINATION: Reviewed vital signs and charting by RN GENERAL: Somnolent. No acute distress. HEAD: Normocephalic, small abrasion right side of forehead supraorbital. EYES: Pupils equal, round, and reactive to light 2mm. Extraocular movements intact but patient sluggish and falling asleep when performing test. ENT: Oral mucosa moist, tongue midline. NECK: Full range of motion. Supple. Trachea midline. LUNGS: Clear to auscultation bilaterally, no wheezes, rales, or rhonchi. No respiratory distress. HEART: Regular rate and rhythm. No murmur ABDOMEN: soft, non-tender. distended. Bowel sounds present in all 4 quadrants. no McBurney's point tenderness, no Tolentino sign. EXTREMITIES: Moves all 4 extremities spontaneously. No edema, No cyanosis. BACK: no cervical, thoracic, lumbar midline tenderness. No saddle anesthesia, normal distal neurovascular exam. NEUROLOGICAL: Periods of orientation followed by periods of confusion, cranial nerve testing grossly intact, unable to perform finger to nose testing bilateral. PSYCH: Normal affect, normal mood. SKIN: Warm, dry, normal turgor. No rashes or lesions noted. Course - Re-evaluation Re-evalutation: 11/08/18 12:[address] Faith. We will get a CT head without contrast, blood work, chest x-ray. 11/08/18 13:49 CT head without contrast negative for intracranial bleed, tumor, midline shift. Chest x-ray negative for any consolidation or evidence of pneumonia. Blood work all normal. I called Dr. Faith who feels the patient should be admitted. I called Dr. Hanna, his primary care doctor, who is requesting an ABG, lactic acid, and MRI brain with and without gadolinium. He accepted patient for full admission to [facility] with telemetry. - Vital Signs Vital signs: Temp Pulse Resp BP Pulse Ox 98 F 97 16 153/80 H 97 11/08/18 17:37 11/08/18 17:37 11/08/18 17:37 11/08/18 17:37 11/08/18 17:37 - Laboratory Result Diagrams: 11/08/18 13:00 11/08/18 13:00 Laboratory results interpreted by me: 11/08/18 11/08/18 11/08/18 13:00 13:00 13:00 RDW 15.2 H Seg Neutrophils % 80.2 H Lymphocytes % 8.6 L Glucose 232 H Total Bilirubin 1.4 H Creatine Kinase TSH 31.60 H 11/08/18 13:00 RDW Seg Neutrophils % Lymphocytes % Glucose Total Bilirubin Creatine Kinase 53 L TSH Discharge - Discharge Clinical Impression: Frequent falls Altered mental status Qualifiers: Altered mental status type: somnolence Qualified Code(s): R40.0 - Somnolence Disposition: ADMITTED INPATIENT Admitting Provider: Dr. Hanna Unit Admitted: [facility]
--- NOTE | 2018-11-08 12:53 | RADIOLOGY REPORT (SQ) ---
EXAM DESCRIPTION: CT HEAD WITHOUT COMPLETED DATE/TIME: 11/08/2018 12:44 pm REASON FOR STUDY: falls, personality change COMPARISON: 06/02/2018 TECHNIQUE: Axial images acquired through the brain without intravenous contrast. Images reviewed wi th bone, brain and subdural windows. Additional sagittal and coronal reconstructions were generated. Images stored on PACS. All CT scanners at this facility use dose modulation, iterative reconstruction, and/or weight based d osing when appropriate to reduce radiation dose to as low as reasonably achievable (ALARA). [facility]: Dose Right [facility]: CareDose [facility]: Dose Right [facility]: Teradose 4D [facility]: Smart Nitro RADIATION DOSE: CT Rad equipment meets quality standard of care and radiation dose reduction techniq ues were employed. CTDIvol: 53.2 mGy. DLP: 1070 mGy-cm. mGy. LIMITATIONS: None. FINDINGS: VENTRICLES: Normal size and contour. CEREBRUM: Mild cortical atrophy. No masses. No hemorrhage. No midline shift. No evidence for acut e infarction. Few scattered areas of low density in the white matter most likely chronic small vessel ischemic changes. CEREBELLUM: No masses. No hemorrhage. No alteration of density. No evidence for acute infarction. EXTRAAXIAL SPACES: No fluid collections. No masses. ORBITS AND GLOBE: No intra- or extraconal masses. Normal contour of globe without masses. CALVARIUM: No fracture. PARANASAL SINUSES: No fluid or mucosal thickening. SOFT TISSUES: No mass or hematoma. OTHER: No other significant finding. IMPRESSION: Mild involutional changes of aging. Mild chronic microvascular ischemia. No acute intr acranial imaging findings. EVIDENCE OF ACUTE STROKE: NO. COMMENT: Quality ID # [id number]: Final reports with documentation of one or more dose reduction techniques (e.g., Automated exposure control, adjustment of the mA and/or kV according to patient size, use of iterative reconstruction technique) TECHNICAL DOCUMENTATION: JOB ID: [id number] [employer]- All Rights Reserved Reading location - IP/workstation name: [email or web address]
--- NOTE | 2018-11-08 12:54 | RADIOLOGY REPORT (SQ) ---
EXAM DESCRIPTION: CHEST SINGLE VIEW COMPLETED DATE/TIME: 11/08/2018 12:48 pm REASON FOR STUDY: cough COMPARISON: 09/02/2016 EXAM PARAMETERS: NUMBER OF VIEWS: One view. TECHNIQUE: Single frontal radiographic view of the chest acquired. RADIATION DOSE: NA LIMITATIONS: None. FINDINGS: LUNGS AND PLEURA: A couple small calcified granulomas are suggested in the right base. No infiltrate, effusion, or suspicious mass. MEDIASTINUM AND HILAR STRUCTURES: No masses. Contour normal. HEART AND VASCULAR STRUCTURES: Heart normal in size. Normal vasculature. BONES: No acute findings. HARDWARE: None in the chest. OTHER: No other significant finding. IMPRESSION: NO ACUTE RADIOGRAPHIC FINDING IN THE CHEST. TECHNICAL DOCUMENTATION: JOB ID: [id number] [employer]- All Rights Reserved Reading location - IP/workstation name: [email or web address]
[2018-11-08 13:19] LABS: ABSOLUTE LYMPHOCYTES (AUTO) 0.8 10^3/uL (0.5-4.7); ABSOLUTE NEUT (AUTO) 7.9 10^3/uL (1.7-8.2); BASOPHILS % (AUTO) 0.3 % (0-2); EOSINOPHILS % (AUTO) 0.3 % (0-6); HEMOGLOBIN 16.3 g/dL (13.5-17.0); LYMPHOCYTES % (AUTO) 8.6 % (13-45); MEAN CORPUSCULAR HEMOGLOBIN 32.6 pg (27.0-33.4); MEAN CORPUSCULAR HGB CONC 34.7 g/dL (32.0-36.0); MEAN CORPUSCULAR VOLUME 94 fl (80-97); MONOCYTES % (AUTO) 10.6 % (3-13); PLATELET COUNT 154 10^3/uL (150-450); RED CELL DISTRIBUTION WIDTH 15.2 % (11.5-14.0); SEGMENTED NEUTROPHILS % (AUTO) 80.2 % (42-78); TOTAL CELLS COUNTED % (AUTO) 100 %; WHITE BLOOD COUNT 9.9 10^3/uL (4.0-10.5)
[2018-11-08 13:27] LABS: ALANINE AMINOTRANSFERASE 34 U/L (21-72); ALBUMIN 3.8 g/dL (3.5-5.0); ALKALINE PHOSPHATASE 82 U/L (38-126); ANION GAP 10 (5-19); ASPARTATE AMINO TRANSFERASE 18 U/L (17-59); BILIRUBIN,DIRECT 0.2 mg/dL (0.0-0.4); BILIRUBIN,TOTAL 1.4 mg/dL (0.2-1.3); BLOOD UREA NITROGEN 18 mg/dL (7-20); CALCIUM 9.6 mg/dL (8.4-10.2); CARBON DIOXIDE 26 mmol/L (22-30); CHLORIDE 102 mmol/L (98-107); GLUCOSE 232 mg/dL (75-110); POTASSIUM 4.1 mmol/L (3.6-5.0); SODIUM 137.8 mmol/L (137-145); TOTAL PROTEIN 6.5 g/dL (6.3-8.2)
[2018-11-08] MEDS ORDERED: ONDANSETRON HCL INJ/PF 4 MG/2 ML SDV IV PRN (14:17)
[2018-11-08] MEDS ORDERED: ACETAMINOPHEN 325 MG TABLET PO PRN (14:17)
[2018-11-08 14:21] LABS: ARTERIAL BLOOD BASE EXCESS 0.9 mmol/L; ARTERIAL BLOOD H2CO3 1.35 mmol/L (1.05-1.35); ARTERIAL BLOOD HCO3 26.3 mmol/L (20-24); ARTERIAL BLOOD O2 SATURATION 94.7 % (94-98); ARTERIAL BLOOD PCO2 44.8 mmHg (35-45); ARTERIAL BLOOD PH 7.39 (7.35-7.45); ARTERIAL BLOOD PO2 74.1 mmHg (80-100); ARTERIAL BLOOD TOTAL CO2 27.7 mmol/L (23-27)
[2018-11-08 14:22] LABS: ARTERIAL BLOOD FIO2 ROOM AIR
[2018-11-08] MEDS ORDERED: GLUCAGON,HUMAN RECOMB 1 MG INJ IM PRN (14:22)
[2018-11-08] MEDS ORDERED: DEXTROSE 50%-WATER 25 GM/50 ML DISP.SYRIN IV PRN ×2 (14:22)
[2018-11-08] MEDS ORDERED: DEXTROSE 40% GEL 15 GM TUBE PO PRN ×2 (14:22)
[2018-11-08 15:28] LABS: CREATINE KINASE MB 0.99 ng/mL (<4.55)
--- NOTE | 2018-11-08 15:28 | RADIOLOGY REPORT (SQ) ---
EXAM DESCRIPTION: MRI HEAD COMBO COMPLETED DATE/TIME: 11/08/2018 3:13 pm REASON FOR STUDY: AMS COMPARISON: 09/03/2016 TECHNIQUE: Multiplanar imaging includes noncontrasted T1, T2, FLAIR, Diffusion with ADC map and post gadolinium contrast T1 sequences. Images stored on PACS. CONTRAST TYPE AND DOSE: 20 mL Dotarem RENAL FUNCTION: Not indicated. ACR Type II contrast agent associated with few, if any, unconfounded cases of NSF LIMITATIONS: Motion. FINDINGS: ANATOMY: No anomalies. Normal vascular flow voids. Pituitary fossa normal. CSF SPACES: Atrophy-induced prominence of CSF spaces and ventricles. CEREBRUM: High-signal intensity lesions scattered throughout the white matter on FLAIR imaging with d istribution suggesting chronic micro-vascular ischemic change. No evidence of hemorrhage, mass, extra axial fluid collection or acute ischemic change. No enhancing lesions. POSTERIOR FOSSA: No signal alteration. No hemorrhage. No edema, masses, or mass effect. Internal ji tory canals, cerebello-pontine angles, mastoids normal. No enhancing lesions. ORBITS: No masses. Globes normal. PARANASAL SINUSES: No fluid levels. DIFFUSION: Normal. No evidence of recent infarct. OTHER: No other significant finding. IMPRESSION: Chronic ischemic changes. EVIDENCE OF ACUTE STROKE: NO. TECHNICAL DOCUMENTATION: JOB ID: [id number] [employer]- All Rights Reserved Reading location - IP/workstation name: [email or web address]
[2018-11-08 15:35] LABS: TROPONIN I < 0.012 ng/mL
[2018-11-08] MEDS: NORMAL SALINE 1000 ML 1,000 ML IV PRN (16:30)
[2018-11-08] MEDS: INSULIN LISPRO 100 UNIT/ML 3 ML VIAL SUBCUT SCH ×2 (16:51→22:36)
[2018-11-08] MEDS: CEFEPIME 1 GM/D5W RTU 1 GM/50 ML RTUPB IV SCH ×2 (16:52→22:39)
[2018-11-08] MEDS ORDERED: TAMSULOSIN HCL 0.4 MG CAP.SR.24H PO SCH (18:00)
[2018-11-08] MEDS: LUBIPROSTONE 24 MCG CAPSULE PO SCH (18:41)
[2018-11-08 18:50] LABS: APPEARANCE,URINE CLEAR; BILIRUBIN,URINE NEGATIVE (NEGATIVE); COLOR,URINE YELLOW; GLUCOSE, URINE >=500 mg/dL (NEGATIVE); KETONES,URINE TRACE mg/dL (NEGATIVE); LEUKOCYTE ESTERASE,URINE NEGATIVE (NEGATIVE); NITRITE,URINE NEGATIVE (NEGATIVE); PROTEIN,URINE NEGATIVE (NEGATIVE); URINE SPECIFIC GRAVITY 1.022; UROBILINOGEN,URINE NEGATIVE mg/dL (<2.0)
[2018-11-08 18:59] LABS: URINE AMPHETAMINES SCREEN NEGATIVE; URINE BARBITURATES SCREEN NEGATIVE; URINE BENZODIAZEPINES SCREEN NEGATIVE; URINE COCAINE SCREEN NEGATIVE; URINE MARIJUANA (THC) SCREEN NEGATIVE; URINE METHADONE SCREEN NEGATIVE; URINE PHENCYCLIDINE SCREEN NEGATIVE
--- NOTE | 2018-11-08 19:03 | PDOC H&P ---
History of Present Illness Admission Date/PCP: 11/08/18 14:02 SEBASTIAN JAMIL MD Patient complains of: Altered mental status History of Present Illness: OTTO MIRZA is a 73 year old male This is a 73-year-old male with a history of multiple myeloma recently on progressions of the disease recently start the new medications but the oncology Dr. Box with that type 2 diabetes significant diabetic neuropathy chronic back problems and a chronic pain syndromes multiple fall in the past brought to the emergency departments because patients more alter according to the and the patient's not feeling well very weak and called the oncology office and suggest to come to the emergency department In the ER patient initial blood work is all stable patients may be a dehydrated given the CT of the head is negative patient is running some low-grade fever decided to admit for further evaluations Patient is denied any chest pain denied any shortness of the breath but patients to feel very weak compared to when I saw in the office Patient's blood sugar is all stable Past Medical History Cardiac Medical History: Reports: Hyperlipidema, Hypertension Denies: Congestive Heart Failure, DVT, Myocardial Infarction, Pulmonary Embolism Pulmonary Medical History: Denies: Asthma, Chronic Obstructive Pulmonary Disease (COPD) Neurological Medical History: Denies: Seizures Endocrine Medical History: Reports: Diabetes Mellitus Type 2, Hypothyroidism Denies: Hyperthyroidism Malignancy Medical History: Reports: Bone Cancer GI Medical History: Denies: Cirrhosis, Gastroesophageal Reflux Disease, Hepatitis Musculoskeltal Medical History: Reports: Arthritis, Other Skin Medical History: Denies: Eczema, Psoriasis Psychiatric Medical History: Reports: Depression - History of Past Surgical History Past Surgical History: Reports: Orthopedic Surgery - Bilateral shoulder and hip surgery., Tonsillectomy Social History Information Source: Patient, Relative Smoking Status: Never Smoker Frequency of Alcohol Use: None Hx Recreational Drug Use: No Drugs: None Hx Prescription Drug Abuse: No Family History Family History: Reviewed & Not Pertinent Parental Family History Reviewed: Yes Children Family History Reviewed: Yes Sibling(s) Family History Reviewed.: Yes Medication/Allergy Allergies/Adverse Reactions: No Known Allergies Allergy (Verified 11/08/18 12:38) Review of Systems Constitutional: PRESENT: weakness. ABSENT: chills, fever(s), headache(s), weight gain, weight loss Eyes: ABSENT: visual disturbances Ears: ABSENT: hearing changes Cardiovascular: ABSENT: chest pain, dyspnea on exertion, edema, orthropnea, palpitations Respiratory: ABSENT: cough, hemoptysis Gastrointestinal: ABSENT: abdominal pain, constipation, diarrhea, hematemesis, hematochezia, nausea, vomiting Genitourinary: ABSENT: dysuria, hematuria Musculoskeletal: ABSENT: joint swelling Integumentary: ABSENT: rash, wounds Neurological: PRESENT: confusion, dizziness, numbness. ABSENT: abnormal gait, abnormal speech, focal weakness, syncope Psychiatric: ABSENT: anxiety, depression, homidical ideation, suicidal ideation Endocrine: ABSENT: cold intolerance, heat intolerance, menstrual abnormalities, polydipsia, polyuria Hematologic/Lymphatic: ABSENT: easy bleeding, easy bruising, lymphadenopathy Physical Exam Vital Signs: Temp Pulse Resp BP Pulse Ox 99.1 F 107 H 12 122/74 96 11/08/18 11:45 11/08/18 11:45 11/08/18 14:01 11/08/18 14:00 11/08/18 14:01 Intake & Output 11/07/18 11/08/18 11/09/18 06:59 06:59 06:59 Weight 99.79 kg General appearance: PRESENT: no acute distress Head exam: PRESENT: atraumatic, normocephalic Eye exam: PRESENT: conjunctiva pink, EOMI, PERRLA. ABSENT: scleral icterus Ear exam: PRESENT: normal external ear exam Mouth exam: PRESENT: moist, tongue midline Neck exam: PRESENT: full ROM. ABSENT: carotid bruit, JVD, lymphadenopathy, thyromegaly Respiratory exam: PRESENT: clear to auscultation isaiah Cardiovascular exam: PRESENT: RRR. ABSENT: diastolic murmur, rubs, systolic murmur Vascular exam: PRESENT: normal capillary refill GI/Abdominal exam: PRESENT: normal bowel sounds, soft. ABSENT: distended, guarding, mass, organolmegaly, rebound, tenderness Rectal exam: PRESENT: deferred Extremities exam: ABSENT: pedal edema Neurological exam: PRESENT: alert, awake, oriented to person, oriented to place. ABSENT: motor sensory deficit Psychiatric exam: PRESENT: appropriate affect, normal mood. ABSENT: homicidal ideation, suicidal ideation Skin exam: PRESENT: dry, intact, warm. ABSENT: cyanosis, rash Results Laboratory Results: 11/08/18 13:00 11/08/18 13:00 11/08/18 11/08/18 11/08/18 13:00 13:00 14:10 WBC 9.9 RBC 5.00 Hgb 16.3 Hct 47.0 MCV 94 MCH 32.6 MCHC 34.7 RDW 15.2 H Plt Count 154 Seg Neutrophils % 80.2 H Lymphocytes % 8.6 L Monocytes % 10.6 Eosinophils % 0.3 Basophils % 0.3 Absolute Neutrophils 7.9 Absolute Lymphocytes 0.8 Absolute Monocytes 1.0 Absolute Eosinophils 0.0 Absolute Basophils 0.0 Carbonic Acid HCO3/H2CO3 Ratio ABG pH ABG pCO2 ABG pO2 ABG HCO3 ABG O2 Saturation ABG Base Excess FiO2 Sodium 137.8 Potassium 4.1 Chloride 102 Carbon Dioxide 26 Anion Gap 10 BUN 18 Creatinine 1.19 Est GFR ( Amer) > 60 Est GFR (Non-Af Amer) > 60 Glucose 232 H Lactic Acid 0.8 Calcium 9.6 Total Bilirubin 1.4 H AST 18 ALT 34 Alkaline Phosphatase 82 Total Protein 6.5 Albumin 3.8 11/08/18 14:10 WBC RBC Hgb Hct MCV MCH MCHC RDW Plt Count Seg Neutrophils % Lymphocytes % Monocytes % Eosinophils % Basophils % Absolute Neutrophils Absolute Lymphocytes Absolute Monocytes Absolute Eosinophils Absolute Basophils Carbonic Acid 1.35 HCO3/H2CO3 Ratio 19:1 ABG pH 7.39 ABG pCO2 44.8 ABG pO2 74.1 L ABG HCO3 26.3 H ABG O2 Saturation 94.7 ABG Base Excess 0.9 FiO2 ROOM AIR Sodium Potassium Chloride Carbon Dioxide Anion Gap BUN Creatinine Est GFR ( Amer) Est GFR (Non-Af Amer) Glucose Lactic Acid Calcium Total Bilirubin AST ALT Alkaline Phosphatase Total Protein Albumin Impressions: Chest X-Ray 11/08/18 12:24 IMPRESSION: NO ACUTE RADIOGRAPHIC FINDING IN THE CHEST. Head CT 11/08/18 12:24 IMPRESSION: Mild involutional changes of aging. Mild chronic microvascular ischemia. No acute intracranial imaging findings. EVIDENCE OF ACUTE STROKE: NO. Assessment & Plan - Diagnosis (1) Altered mental status Qualifiers: Altered mental status type: somnolence Qualified Code(s): R40.0 - S omnolence Is this a current diagnosis for this admission?: Yes Plan: Patient initial CT head is negative We will get the MRI of the head We will also get the blood culture urine culture to rule out any sepsis Also get the ammonia level (2) Multiple myeloma Qualifiers: Multiple myeloma remission status: in relapse Qualified Code(s): C90.02 - Multiple myeloma in relapse Is this a current diagnosis for this admission?: Yes Plan: Follow with the oncology (3) Type 2 diabetes mellitus Qualifiers: Diabetes mellitus mcfp insulin use: with mcfp use Diabetes mellitus complication status: with unspecified complications Qualified Code(s): E11.8 - Type 2 diabetes mellitus with unspecified complications; Z79.4 - MCC (current) use of insulin Is this a current diagnosis for this admission?: Yes Plan: Continues a sliding scale (4) Chronic pain syndrome Is this a current diagnosis for this admission?: Yes Plan: Patient is getting the pain medications from the pain management (5) Chronic back pain Qualifiers: Sciatica laterality: bilateral sciatica Is this a current diagnosis for this admission?: Yes (6) Frequent falls Is this a current diagnosis for this admission?: Yes Plan: Multiple etiology due to the chronic pain medications weakness from the chemo and a significant peripheral diabetic neuropathy (7) Acute encephalopathy Is this a current diagnosis for this admission?: Yes Plan: May be a medication induced versus infections will get the MRI of the head to rule out any other acute neurological issues get the blood culture urine cultures start the patient on antibiotic (8) Peripheral neuropathy Qualifiers: Peripheral neuropathy type: polyneuropathy, unspecified Qualified Code(s): G62.9 - Polyneuropathy, unspecified Is this a current diagnosis for this admission?: Yes Plan: Continues to current medications - Time Time Spent: 30 to 50 Minutes Medications reviewed and adjusted accordingly: Yes Anticipated discharge: Home Within: Other - Inpatient Certification Based on my medical assessment, after consideration of the patient's comorbidities, presenting symptoms, or acuity I expect that the services needed warrant INPATIENT care.: Yes I certify that my determination is in accordance with my understanding of Medicare's requirements for reasonable and necessary INPATIENT services [42 CFR 412.3e].: Yes Medical Necessity: Significant Comorbidiites Make Outpatient Treatment Too Risky, Need For IV Fluids, Need for IV Antibiotics Post Hospital Care: D/C Medical Aide Documentation - Plan Summary Plan Summary: Admit the patient in IMCU Discussed with the Discussed with the oncology
[2018-11-08] MEDS ORDERED: AZITHROMYCIN 250 MG TABLET PO ONE (19:30)
[2018-11-08 20:25] LABS: CREATINE KINASE MB 0.99 ng/mL (<4.55)
[2018-11-08 20:29] LABS: TROPONIN I < 0.012 ng/mL
[2018-11-08] MEDS ORDERED: PREGABALIN 100 MG CAPSULE PO SCH (22:00)
[2018-11-08] MEDS: INSULIN GLARGINE,HUM.REC.ANLOG 300 UNIT/3 ML INSULN.PEN SUBCUT SCH (22:37)
[2018-11-08] MEDS: GUAIFENESIN 600 MG TABLET.SA PO SCH (22:37)
[2018-11-08] MEDS: ATORVASTATIN CALCIUM 20 MG TABLET PO SCH (22:37)
[2018-11-08] MEDS: TEMAZEPAM 15 MG CAPSULE PO SCH (22:38)
[2018-11-08] MEDS: FAMOTIDINE 20 MG TABLET PO SCH (22:38)
[2018-11-08] MEDS: Pomalidomide [Pomalyst] 2 MG PO SCH (22:38)
[2018-11-09 02:10] LABS: CREATINE KINASE MB 1.05 ng/mL (<4.55)
[2018-11-09 02:14] LABS: TROPONIN I < 0.012 ng/mL
[2018-11-09] MEDS ORDERED: LEVOTHYROXINE SODIUM 0.05 MG TABLET PO SCH (06:00)
[2018-11-09] MEDS: LUBIPROSTONE 24 MCG CAPSULE PO SCH ×2 (08:04→17:16)
[2018-11-09 08:40] LABS: ABSOLUTE EOSINOPHILS # (AUTO) 0.1 10^3/uL (0.0-0.6); ABSOLUTE LYMPHOCYTES (AUTO) 0.8 10^3/uL (0.5-4.7); ABSOLUTE MONOCYTES (AUTO) 0.6 10^3/uL (0.1-1.4); ABSOLUTE NEUT (AUTO) 4.1 10^3/uL (1.7-8.2); BASOPHILS % (AUTO) 0.7 % (0-2); EOSINOPHILS % (AUTO) 1.8 % (0-6); HEMATOCRIT 40.2 % (37.9-51.0); HEMOGLOBIN 14.1 g/dL (13.5-17.0); LYMPHOCYTES % (AUTO) 13.8 % (13-45); MEAN CORPUSCULAR HEMOGLOBIN 32.6 pg (27.0-33.4); MEAN CORPUSCULAR VOLUME 93 fl (80-97); MONOCYTES % (AUTO) 11.3 % (3-13); PLATELET COUNT 118 10^3/uL (150-450); RED BLOOD COUNT 4.32 10^6/uL (4.35-5.55); SEGMENTED NEUTROPHILS % (AUTO) 72.4 % (42-78); TOTAL CELLS COUNTED % (AUTO) 100 %; WHITE BLOOD COUNT 5.6 10^3/uL (4.0-10.5)
--- NOTE | 2018-11-09 08:50 | PDOC CONSULTATION ---
Consultation Consult Date: 11/09/18 Consult reason:: Hematology/Oncology consultation was requested for patient with Multiple Myeloma. History of Present Illness Admission Date/PCP: 11/08/18 14:02 SEBASTIAN JAMIL MD History of Present Illness: OTTO MIRZA is a 73 year old male who is followed by Dr. Faith for his Multiple Myeloma which was diagnosed in 1998. He underwent autologous transplant in 1999 and has been on various medications since that time. Most recently, he was found to have evidence of disease progression and was started on Darzelex. He received a dose on 11/02 and 11/03. His next treatment is s cheduled for 11/16. Patient states that he was feeling weak and in the ED, was found to have dehydration and a low-grade fever. He was started on Zithromax and Cefapime empirically. Today, he states that he is feeling pretty good. He is sitting up and eating a full breakfast without difficulty. 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 Denies: Seizures Endocrine Medical History: Reports: Diabetes Mellitus Type 2, Hypothyroidism Denies: Hyperthyroidism Malignancy Medical History: Reports: Bone Cancer GI Medical History: Denies: Cirrhosis, Gastroesophageal Reflux Disease, Hepatitis Musculoskeltal Medical History: Reports: Arthritis, Other Skin Medical History: Denies: Eczema, Psoriasis Psychiatric Medical History: Reports: Depression - History of Past Surgical History Past Surgical History: Reports: Orthopedic Surgery - Bilateral shoulder and hip surgery., Tonsillectomy, Other - cataracts Social History Information Source: Patient Occupation: retired Lives with: Spouse/Significant other Smoking Status: Never Smoker Frequency of Alcohol Use: None Hx Recreational Drug Use: No Drugs: None Hx Prescription Drug Abuse: No - Advance Directive Resuscitation Status: Full Code Family History Parental Family History Reviewed: Yes - Both Children Family History Reviewed: No Sibling(s) Family History Reviewed.: Yes Medication/Allergy Home Medications: Aspirin [Ecotrin 81 mg EC Tablet] 81 mg PO DAILY 11/08/18 Atorvastatin Calcium [Lipitor 20 mg Tablet] 10 mg PO QHS 11/08/18 Empagliflozin [Jardiance] 25 mg PO DAILY 11/08/18 Finasteride [Proscar 5 mg Tablet] 5 mg PO DAILY 11/08/18 Insulin Aspart [Novolog Flexpen] 10 unit SQ MEALS 11/08/18 Insulin Glargine,Hum.rec.anlog [Lantus Insulin 100 Unit/mL] 55 unit SQ QHS 11/08/18 Lubiprostone [Amitiza 24 Mcg Capsule] 24 mcg PO BIDBS 11/08/18 Pomalidomide [Pomalyst] 2 mg PO DAILY 11/08/18 Pregabalin [Lyrica 100 mg Capsule] 100 mg PO Q8 11/08/18 Tamsulosin HCl [Flomax 0.4 mg Cap.sr] 0.8 mg PO PCSUPPER 11/08/18 Temazepam [Restoril 15 mg Capsule] 15 mg PO QHS 11/08/18 Allergies/Adverse Reactions: No Known Allergies Allergy (Verified 11/08/18 12:38) Review of Systems Constitutional: PRESENT: fever(s). ABSENT: headache(s) Eyes: ABSENT: visual disturbances Ears: ABSENT: hearing changes Nose, Mouth, and Throat: ABSENT: sore throat Cardiovascular: ABSENT: chest pain Respiratory: ABSENT: dyspnea Gastrointestinal: ABSENT: constipation, nausea Genitourinary: ABSENT: dysuria Integumentary: ABSENT: rash Neurological: PRESENT: frequent falls, numbness, weakness Hematologic/Lymphatic: ABSENT: easy bleeding Physical Exam Vital Signs: Temp Pulse Resp BP Pulse Ox 98.4 F 90 15 107/53 L 98 11/09/18 03:09 11/09/18 07:00 11/09/18 03:09 11/09/18 03:09 11/09/18 03:09 Intake & Output 11/08/18 11/09/18 11/10/18 06:59 06:59 06:59 Intake Total 150 Output Total 950 Balance -800 Weight 93 kg General appearance: PRESENT: well-developed, well-nourished Exam: 73 year old male. Head exam: PRESENT: normocephalic Eye exam: PRESENT: EOMI Mouth exam: PRESENT: tongue midline Neck exam: ABSENT: lymphadenopathy, tenderness Respiratory exam: PRESENT: clear to auscultation isaiah, unlabored Cardiovascular exam: PRESENT: RRR GI/Abdominal exam: PRESENT: soft. ABSENT: tenderness Extremities exam: ABSENT: pedal edema Musculoskeletal exam: PRESENT: normal inspection Neurological exam: PRESENT: alert, awake Psychiatric exam: PRESENT: appropriate affect Focused psych exam: ABSENT: restlessness Skin exam: PRESENT: normal color Results Laboratory Results: 11/08/18 11/08/18 11/08/18 13:00 13:00 13:00 WBC 9.9 RBC 5.00 Hgb 16.3 Hct 47.0 MCV 94 MCH 32.6 MCHC 34.7 RDW 15.2 H Plt Count 154 Seg Neutrophils % 80.2 H Lymphocytes % 8.6 L Monocytes % 10.6 Eosinophils % 0.3 Basophils % 0.3 Absolute Neutrophils 7.9 Absolute Lymphocytes 0.8 Absolute Monocytes 1.0 Absolute Eosinophils 0.0 Absolute Basophils 0.0 Carbonic Acid HCO3/H2CO3 Ratio ABG pH ABG pCO2 ABG pO2 ABG HCO3 ABG O2 Saturation ABG Base Excess FiO2 Sodium 137.8 Potassium 4.1 Chloride 102 Carbon Dioxide 26 Anion Gap 10 BUN 18 Creatinine 1.19 Est GFR ( Amer) > 60 Est GFR (Non-Af Amer) > 60 Glucose 232 H Lactic Acid Calcium 9.6 Total Bilirubin 1.4 H AST 18 ALT 34 Alkaline Phosphatase 82 Ammonia Total Protein 6.5 Albumin 3.8 TSH 31.60 H Urine Color Urine Appearance Urine pH Ur Specific [place] Urine Protein Urine Glucose (UA) Urine Ketones Urine Blood Urine Nitrite Ur Leukocyte Esterase Urine WBC (Auto) 11/08/18 11/08/18 11/08/18 14:10 14:10 15:25 WBC RBC Hgb Hct MCV MCH MCHC RDW Plt Count Seg Neutrophils % Lymphocytes % Monocytes % Eosinophils % Basophils % Absolute Neutrophils Absolute Lymphocytes Absolute Monocytes Absolute Eosinophils Absolute Basophils Carbonic Acid 1.35 HCO3/H2CO3 Ratio 19:1 ABG pH 7.39 ABG pCO2 44.8 ABG pO2 74.1 L ABG HCO3 26.3 H ABG O2 Saturation 94.7 ABG Base Excess 0.9 FiO2 ROOM AIR Sodium Potassium Chloride Carbon Dioxide Anion Gap BUN Creatinine Est GFR ( Amer) Est GFR (Non-Af Amer) Glucose Lactic Acid 0.8 Calcium Total Bilirubin AST ALT Alkaline Phosphatase Ammonia < 8.7 L Total Protein Albumin TSH Urine Color Urine Appearance Urine pH Ur Specific [place] Urine Protein Urine Glucose (UA) Urine Ketones Urine Blood Urine Nitrite Ur Leukocyte Esterase Urine WBC (Auto) 11/08/18 17:35 WBC RBC Hgb Hct MCV MCH MCHC RDW Plt Count Seg Neutrophils % Lymphocytes % Monocytes % Eosinophils % Basophils % Absolute Neutrophils Absolute Lymphocytes Absolute Monocytes Absolute Eosinophils Absolute Basophils Carbonic Acid HCO3/H2CO3 Ratio ABG pH ABG pCO2 ABG pO2 ABG HCO3 ABG O2 Saturation ABG Base Excess FiO2 Sodium Potassium Chloride Carbon Dioxide Anion Gap BUN Creatinine Est GFR ( Amer) Est GFR (Non-Af Amer) Glucose Lactic Acid Calcium Total Bilirubin AST ALT Alkaline Phosphatase Ammonia Total Protein Albumin TSH Urine Color YELLOW Urine Appearance CLEAR Urine pH 5.0 Ur Specific [place] 1.022 Urine Protein NEGATIVE Urine Glucose (UA) >=500 H Urine Ketones TRACE H Urine Blood NEGATIVE Urine Nitrite NEGATIVE Ur Leukocyte Esterase NEGATIVE Urine WBC (Auto) 0 11/08/18 11/08/18 11/08/18 13:00 13:00 19:10 Creatine Kinase 53 L 56 CK-MB (CK-2) 0.99 Troponin I < 0.012 11/08/18 11/09/18 11/09/18 19:10 00:50 00:50 Creatine Kinase 54 L CK-MB (CK-2) 0.99 1.05 Troponin I < 0.012 < 0.012 Impressions: Chest X-Ray 11/08/18 12:24 IMPRESSION: NO ACUTE RADIOGRAPHIC FINDING IN THE CHEST. Head CT 11/08/18 12:24 IMPRESSION: Mild involutional changes of aging. Mild chronic microvascular ischemia. No acute intracranial imaging findings. EVIDENCE OF ACUTE STROKE: NO. Head MRI 11/08/18 13:48 IMPRESSION: Chronic ischemic changes. EVIDENCE OF ACUTE STROKE: NO. Status: Image reviewed by me Assessment & Plan - Diagnosis (1) Multiple myeloma Qualifiers: Multiple myeloma remission status: in relapse Qualified Code(s): C90.02 - Multiple myeloma in relapse Is this a current diagnosis for this admission?: Yes Plan: Recently started on Darzalex. This will continue on hold for now. (2) Frequent falls Is this a current diagnosis for this admission?: Yes Plan: Most likely due to neuropathy. His MRI brain was negative. Will discuss further safety at home. (3) Hypothyroid Is this a current diagnosis for this admission?: Yes Plan: TSH was elevated. He was taking 150 mcg at home. It looks like he is only taking 50 mcg here. I will increase back to his home dose. (4) Fever Is this a current diagnosis for this admission?: Yes Plan: This was low-grade and has now resolved. His UA was clear. I will stop Cefapime, as he is not neutropenic and will continue only the Zithromax empirically. Awaiting cultures. - Plan Summary Plan Summary: Patient was discussed with Dr. Jamil.
[2018-11-09 08:58] LABS: ALANINE AMINOTRANSFERASE 28 U/L (21-72); ALBUMIN 3.2 g/dL (3.5-5.0); ALKALINE PHOSPHATASE 61 U/L (38-126); ANION GAP 9 (5-19); ASPARTATE AMINO TRANSFERASE 17 U/L (17-59); BILIRUBIN,DIRECT 0.3 mg/dL (0.0-0.4); BILIRUBIN,TOTAL 1.5 mg/dL (0.2-1.3); BLOOD UREA NITROGEN 18 mg/dL (7-20); CALCIUM 8.6 mg/dL (8.4-10.2); CARBON DIOXIDE 23 mmol/L (22-30); CHLORIDE 106 mmol/L (98-107); GLUCOSE 151 mg/dL (75-110); POTASSIUM 3.4 mmol/L (3.6-5.0); SODIUM 138.3 mmol/L (137-145); TOTAL PROTEIN 5.4 g/dL (6.3-8.2)
--- NOTE | 2018-11-09 09:23 | RADIOLOGY REPORT (SQ) ---
EXAM DESCRIPTION: CT CHEST WITHOUT COMPLETED DATE/TIME: 11/09/2018 8:50 am REASON FOR STUDY: cough COMPARISON: Chest radiograph, 11/08/2018 TECHNIQUE: CT scan performed of the chest without intravenous contrast. Images reviewed with lung, soft tissue and bone windows. Reconstructed coronal and sagittal MPR images reviewed. All images st ored on PACS. All CT scanners at this facility use dose modulation, iterative reconstruction, and/or weight based d osing when appropriate to reduce radiation dose to as low as reasonably achievable (ALARA). [facility]: Dose Right [facility]: CareDose [facility]: Dose Right [facility]: Teradose 4D [facility]: Smart Techn[employer] RADIATION DOSE: CT Rad equipment meets quality standard of care and radiation dose reduction techniq ues were employed. CTDIvol: 15.4 mGy. DLP: 569 mGy-cm. mGy. LIMITATIONS: No technical limitations. FINDINGS: LUNGS AND PLEURA: There is diffuse bilateral bronchial wall thickening and areas of minima l clustered nodularity, for example in the right upper lobe (series 4, image 34). There is an irregu lar nodule of the lateral left lower lobe measuring 1.2 cm (series 4, image 67). Bandlike scarring o r atelectasis of the lingula and left lower lobe. HILAR AND MEDIASTINAL STRUCTURES: No identified masses or abnormal nodes. No obvious aneurysm. HEART AND VASCULAR STRUCTURES: No aneurysm. No pericardial effusion. UPPER ABDOMEN: No significant findings. Limited exam. THYROID AND OTHER SOFT TISSUES: No masses. No adenopathy. BONES: No significant finding. HARDWARE: None in the chest. OTHER: No other significant findings. IMPRESSION: 1. Diffuse bilateral bronchial wall thickening and areas of minimal clustered nodularit y, for example in the right upper lobe. Findings are suggestive of atypical infection such as atypic al mycobacterium but otherwise nonspecific. No evidence of interstitial lung disease in the setting of cough. 2. Irregular nodule of the lateral left lower lobe measuring 1.2 cm, nonspecific although concerning for malignancy. This may be characterized by PET-CT or percutaneous biopsy. At minimum recommend t hree-month follow-up CT to ensure stability or resolution. TECHNICAL DOCUMENTATION: JOB ID: [id number] Quality ID # [id number]: Final reports with documentation of one or more dose reduction techniques (e.g., Au tomated exposure control, adjustment of the mA and/or kV according to patient size, use of iterative reconstruction technique) 2010 [employer]- All Rights Reserved Reading location - IP/workstation name: [email or web address]
[2018-11-09] MEDS: INSULIN LISPRO 100 UNIT/ML 3 ML VIAL SUBCUT SCH ×4 (09:52→21:44)
[2018-11-09] MEDS: LEVOTHYROXINE SODIUM 0.15 MG TABLET PO SCH (09:53)
[2018-11-09] MEDS: FINASTERIDE 5 MG TABLET PO SCH (09:53)
[2018-11-09] MEDS: GUAIFENESIN 600 MG TABLET.SA PO SCH ×2 (09:53→21:32)
[2018-11-09] MEDS: ENOXAPARIN SODIUM INJ 40 MG/0.4 ML DISP.SYRIN SUBCUT SCH (09:53)
[2018-11-09] MEDS: ASPIRIN 81 MG TABLET, ENT COATED PO SCH (09:53)
[2018-11-09] MEDS: AZITHROMYCIN 250 MG TABLET PO SCH (09:53)
[2018-11-09] MEDS: FAMOTIDINE 20 MG TABLET PO SCH ×2 (09:53→21:33)
[2018-11-09] MEDS: NORMAL SALINE 1000 ML 1,000 ML IV PRN ×2 (09:55→23:43)
[2018-11-09] MEDS ORDERED: PREGABALIN 100 MG CAPSULE PO SCH (10:00)
[2018-11-09] MEDS ORDERED: POMALIDOMIDE 2 MG PO SCH (10:00)
[2018-11-09] MEDS ORDERED: (PENDING PHARMACY ID) (Empagliflozin [Jardiance] 25 MG) PO SCH (10:00)
[2018-11-09] MEDS: PREGABALIN 50 MG CAPSULE PO SCH ×2 (12:28→21:33)
[2018-11-09] MEDS ORDERED: POTASSIUM CHLORIDE 10 MEQ CAPSULE.ER PO ONE ×2 (13:04→17:17)
--- NOTE | 2018-11-09 13:07 | PDOC PROGRESS REPORT ---
Subjective Progress Note for:: 11/09/18 Subjective:: Patient is currently doing fair Patient still confused Patient still have some cough Order the CT of the chest will suggest patient have any atypical infections with some pulmonary nodules Patient otherwise denied any fever no chills Reason For Visit: AMS Physical Exam Vital Signs: Temp Pulse Resp BP Pulse Ox 98.2 F 88 18 137/60 H 95 11/09/18 07:29 11/09/18 07:29 11/09/18 07:29 11/09/18 07:29 11/09/18 07:29 Intake & Output 11/08/18 11/09/18 11/10/18 06:59 06:59 06:59 Intake Total 1100 Output Total 950 Balance 150 Weight 93 kg General appearance: PRESENT: no acute distress, well-developed, well-nourished Head exam: PRESENT: atraumatic, normocephalic Eye exam: PRESENT: conjunctiva pink, EOMI, PERRLA. ABSENT: scleral icterus Ear exam: PRESENT: normal external ear exam Mouth exam: PRESENT: moist, tongue midline Neck exam: PRESENT: full ROM. ABSENT: carotid bruit, JVD, lymphadenopathy, thyromegaly Respiratory exam: PRESENT: clear to auscultation isaiah Cardiovascular exam: PRESENT: RRR. ABSENT: diastolic murmur, rubs, systolic murmur Vascular exam: PRESENT: normal capillary refill GI/Abdominal exam: PRESENT: normal bowel sounds, soft. ABSENT: distended, guard ing, mass, organolmegaly, rebound, tenderness Rectal exam: PRESENT: deferred Neurological exam: PRESENT: alert, awake, oriented to person, oriented to place, oriented to time, oriented to situation, CN II-XII grossly intact. ABSENT: motor sensory deficit Psychiatric exam: PRESENT: appropriate affect, normal mood. ABSENT: homicidal ideation, suicidal ideation Skin exam: PRESENT: dry, intact, warm. ABSENT: cyanosis, rash Results Laboratory Results: 11/09/18 07:50 11/09/18 07:50 11/08/18 11/08/18 11/08/18 13:00 13:00 13:00 WBC 9.9 RBC 5.00 Hgb 16.3 Hct 47.0 MCV 94 MCH 32.6 MCHC 34.7 RDW 15.2 H Plt Count 154 Seg Neutrophils % 80.2 H Lymphocytes % 8.6 L Monocytes % 10.6 Eosinophils % 0.3 Basophils % 0.3 Absolute Neutrophils 7.9 Absolute Lymphocytes 0.8 Absolute Monocytes 1.0 Absolute Eosinophils 0.0 Absolute Basophils 0.0 Carbonic Acid HCO3/H2CO3 Ratio ABG pH ABG pCO2 ABG pO2 ABG HCO3 ABG O2 Saturation ABG Base Excess FiO2 Sodium 137.8 Potassium 4.1 Chloride 102 Carbon Dioxide 26 Anion Gap 10 BUN 18 Creatinine 1.19 Est GFR ( Amer) > 60 Est GFR (Non-Af Amer) > 60 Glucose 232 H Lactic Acid Calcium 9.6 Magnesium Total Bilirubin 1.4 H AST 18 ALT 34 Alkaline Phosphatase 82 Ammonia Total Protein 6.5 Albumin 3.8 TSH 31.60 H Urine Color Urine Appearance Urine pH Ur Specific [place] Urine Protein Urine Glucose (UA) Urine Ketones Urine Blood Urine Nitrite Ur Leukocyte Esterase Urine WBC (Auto) 11/08/18 11/08/18 11/08/18 14:10 14:10 15:25 WBC RBC Hgb Hct MCV MCH MCHC RDW Plt Count Seg Neutrophils % Lymphocytes % Monocytes % Eosinophils % Basophils % Absolute Neutrophils Absolute Lymphocytes Absolute Monocytes Absolute Eosinophils Absolute Basophils Carbonic Acid 1.35 HCO3/H2CO3 Ratio 19:1 ABG pH 7.39 ABG pCO2 44.8 ABG pO2 74.1 L ABG HCO3 26.3 H ABG O2 Saturation 94.7 ABG Base Excess 0.9 FiO2 ROOM AIR Sodium Potassium Chloride Carbon Dioxide Anion Gap BUN Creatinine Est GFR ( Amer) Est GFR (Non-Af Amer) Glucose Lactic Acid 0.8 Calcium Magnesium Total Bilirubin AST ALT Alkaline Phosphatase Ammonia < 8.7 L Total Protein Albumin TSH Urine Color Urine Appearance Urine pH Ur Specific [place] Urine Protein Urine Glucose (UA) Urine Ketones Urine Blood Urine Nitrite Ur Leukocyte Esterase Urine WBC (Auto) 11/08/18 11/09/18 11/09/18 17:35 07:50 07:50 WBC 5.6 RBC 4.32 L Hgb 14.1 D Hct 40.2 MCV 93 MCH 32.6 MCHC 35.0 RDW 15.0 H Plt Count 118 L Seg Neutrophils % 72.4 Lymphocytes % 13.8 Monocytes % 11.3 Eosinophils % 1.8 Basophils % 0.7 Absolute Neutrophils 4.1 Absolute Lymphocytes 0.8 Absolute Monocytes 0.6 Absolute Eosinophils 0.1 Absolute Basophils 0.0 Carbonic Acid HCO3/H2CO3 Ratio ABG pH ABG pCO2 ABG pO2 ABG HCO3 ABG O2 Saturation ABG Base Excess FiO2 Sodium 138.3 Potassium 3.4 L Chloride 106 Carbon Dioxide 23 Anion Gap 9 BUN 18 Creatinine 1.13 Est GFR ( Amer) > 60 Est GFR (Non-Af Amer) > 60 Glucose 151 H Lactic Acid Calcium 8.6 Magnesium 2.4 H Total Bilirubin 1.5 H AST 17 ALT 28 Alkaline Phosphatase 61 Ammonia Total Protein 5.4 L Albumin 3.2 L TSH Urine Color YELLOW Urine Appearance CLEAR Urine pH 5.0 Ur Specific [place] 1.022 Urine Protein NEGATIVE Urine Glucose (UA) >=500 H Urine Ketones TRACE H Urine Blood NEGATIVE Urine Nitrite NEGATIVE Ur Leukocyte Esterase NEGATIVE Urine WBC (Auto) 0 11/08/18 11/08/18 11/08/18 13:00 13:00 19:10 Creatine Kinase 53 L 56 CK-MB (CK-2) 0.99 Troponin I < 0.012 11/08/18 11/09/18 11/09/18 19:10 00:50 00:50 Creatine Kinase 54 L CK-MB (CK-2) 0.99 1.05 Troponin I < 0.012 < 0.012 Impressions: Chest X-Ray 11/08/18 12:24 IMPRESSION: NO ACUTE RADIOGRAPHIC FINDING IN THE CHEST. Head CT 11/08/18 12:24 IMPRESSION: Mild involutional changes of aging. Mild chronic microvascular ischemia. No acute intracranial imaging findings. EVIDENCE OF ACUTE STROKE: NO. Head MRI 11/08/18 13:48 IMPRESSION: Chronic ischemic changes. EVIDENCE OF ACUTE STROKE: NO. Chest CT 11/09/18 00:00 IMPRESSION: 1. Diffuse bilateral bronchial wall thickening and areas of min imal clustered nodularity, for example in the right upper lobe. Findings are suggestive of atypical infection such as atypical mycobacterium but otherwise nonspecific. No evidence of interstitial lung disease in the setting of cough. 2. Irregular nodule of the lateral left lower lobe measuring 1.2 cm, nonspecific although concerning for malignancy. This may be characterized by PET-CT or percutaneous biopsy. At minimum recommend three-month follow-up CT to ensure stability or resolution. Assessment & Plan - Diagnosis (1) Altered mental status Qualifiers: Altered mental status type: somnolence Qualified Code(s): R40.0 - Somnolence Is this a current diagnosis for this admission?: Yes Plan: Patient so far all workup is negative except chest CT is showing some kind of a pneumonia We will treat with the IV antibiotic (2) Multiple myeloma Qualifiers: Multiple myeloma remission status: in relapse Qualified Code(s): C90.02 - Multiple myeloma in relapse Is this a current diagnosis for this admission?: Yes Plan: Follow with the oncology (3) Type 2 diabetes mellitus Qualifiers: Diabetes mellitus 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 Diabetes mellitus complication status: with unspecified complications Qualified Code(s): E11.8 - Type 2 diabetes mellitus with unspecified complications; Z79.4 - prison (current) use of insulin Is this a current diagnosis for this admission?: Yes Plan: Continues a sliding scale (4) Chronic pain syndrome Is this a current diagnosis for this admission?: Yes Plan: Patient is getting the pain medications from the pain management (5) Chronic back pain Qualifiers: Sciatica laterality: bilateral sciatica Is this a current diagnosis for this admission?: Yes (6) Frequent falls Is this a current diagnosis for this admission?: Yes (7) Acute encephalopathy Is this a current diagnosis for this admission?: Yes Plan: May be a medication induced versus infections will get the MRI of the head to rule out any other acute neurological issues get the blood culture urine cultures start the patient on antibiotic (8) Peripheral neuropathy Qualifiers: Peripheral neuropathy type: polyneuropathy, unspecified Is this a current diagnosis for this admission?: Yes Plan: Continues to current medications (9) Atypical pneumonia Is this a current diagnosis for this admission?: Yes Plan: Will continues to IV antibiotic continues to Zithromax and cefepime We will consult the pulmonary (10) Pulmonary nodule Is this a current diagnosis for this admission?: Yes Plan: To rule out any malignancy consult the pulmonary consult the oncology - Time Time Spent with patient: 15-24 minutes Medications reviewed and adjusted accordingly: Yes Anticipated discharge: Home Within: Other - Plan Summary Plan Summary: IV fluid continues to IV antibiotic
--- NOTE | 2018-11-09 16:48 | EKG REPORT ---
SEVERITY:- ABNORMAL ECG - SINUS RHYTHM RIGHT BUNDLE BRANCH BLOCK INFERIOR INFARCT, OLD : Confirmed by: Franco Villafana 09-Nov-2018 16:46:38
[2018-11-09] MEDS: TAMSULOSIN HCL 0.4 MG CAP.SR.24H PO SCH (17:20)
[2018-11-09] MEDS: Pomalidomide [Pomalyst] 2 MG PO SCH (21:33)
[2018-11-09] MEDS: TEMAZEPAM 15 MG CAPSULE PO SCH (21:33)
[2018-11-09] MEDS: ATORVASTATIN CALCIUM 20 MG TABLET PO SCH (21:33)
[2018-11-09] MEDS: CEFEPIME 2 GM/D5W RTU 2 GM/50 ML RTUPB IV SCH (21:41)
[2018-11-09] MEDS: INSULIN GLARGINE,HUM.REC.ANLOG 300 UNIT/3 ML INSULN.PEN SUBCUT SCH (21:43)
[2018-11-09] MEDS ORDERED: LORAZEPAM INJ 2 MG/1 ML VIAL ONE (23:17)
[2018-11-09] MEDS ORDERED: LORAZEPAM INJ 2 MG/1 ML VIAL IV ONE (23:30)
[2018-11-10 05:16] LABS: ABSOLUTE EOSINOPHILS # (AUTO) 0.1 10^3/uL (0.0-0.6); ABSOLUTE LYMPHOCYTES (AUTO) 0.8 10^3/uL (0.5-4.7); ABSOLUTE MONOCYTES (AUTO) 0.6 10^3/uL (0.1-1.4); ABSOLUTE NEUT (AUTO) 3.7 10^3/uL (1.7-8.2); BASOPHILS % (AUTO) 0.7 % (0-2); EOSINOPHILS % (AUTO) 1.2 % (0-6); HEMATOCRIT 39.8 % (37.9-51.0); LYMPHOCYTES % (AUTO) 16.2 % (13-45); MEAN CORPUSCULAR HEMOGLOBIN 32.3 pg (27.0-33.4); MEAN CORPUSCULAR HGB CONC 35.3 g/dL (32.0-36.0); MEAN CORPUSCULAR VOLUME 92 fl (80-97); MONOCYTES % (AUTO) 11.3 % (3-13); PLATELET COUNT 121 10^3/uL (150-450); RED BLOOD COUNT 4.34 10^6/uL (4.35-5.55); RED CELL DISTRIBUTION WIDTH 14.7 % (11.5-14.0); SEGMENTED NEUTROPHILS % (AUTO) 70.6 % (42-78); TOTAL CELLS COUNTED % (AUTO) 100 %; WHITE BLOOD COUNT 5.2 10^3/uL (4.0-10.5)
[2018-11-10] MEDS: LEVOTHYROXINE SODIUM 0.15 MG TABLET PO SCH (06:52)
--- NOTE | 2018-11-10 08:24 | PDOC PROGRESS REPORT ---
Subjective Progress Note for:: 11/10/18 Subjective:: Overnight patient was very combative, got up and walked a few steps, ultimately had to get Ativan for sedation, this morning however he is sitting up and eating pineapples. He seems to be getting closer to his previous baseline and his feels like he is a different person this morning. He is responding more appropriate today than he had in the last couple days. I reviewed his imaging at length, MRI of the brain did not show anything acute but chronic microvascular changes. CT of the chest indicated thickening of the parenchyma that may be consistent with atypical infection also there was a pulmonary nodule that was apparently new although it been several years since we did previous CT. Reason For Visit: AMS Physical Exam Vital Signs: Temp Pulse Resp BP Pulse Ox 98.2 F 91 12 148/81 H 98 11/10/18 03:30 11/10/18 03:30 11/10/18 03:30 11/10/18 03:30 11/10/18 03:30 Intake & Output 11/09/18 11/10/18 11/11/18 06:59 06:59 06:59 Intake Total 1100 1807 Output Total 950 Balance 150 1807 Weight 93 kg 93 kg General appearance: PRESENT: no acute distress, well-developed, well-nourished Head exam: PRESENT: atraumatic, normocephalic Eye exam: PRESENT: conjunctiva pink, EOMI, PERRLA. ABSENT: scleral icterus Ear exam: PRESENT: normal external ear exam Mouth exam: PRESENT: moist, tongue midline Neck exam: ABSENT: carotid bruit, JVD, lymphadenopathy, thyromegaly Respiratory exam: PRESENT: clear to auscultation isaiah. ABSENT: rales, rhonchi, wheezes Cardiovascular exam: PRESENT: RRR. ABSENT: diastolic murmur, rubs, systolic murmur Pulses: PRESENT: normal dorsalis pedis pul Vascular exam: PRESENT: normal capillary refill GI/Abdominal exam: PRESENT: normal bowel sounds, soft. ABSENT: distended, guarding, mass, organolmegaly, rebound, tenderness Rectal exam: PRESENT: deferred Extremities exam: PRESENT: full ROM. ABSENT: calf tenderness, clubbing, pedal edema Neurological exam: PRESENT: alert, awake, oriented to person, oriented to place, oriented to time, oriented to situation, CN II-XII grossly intact. ABSENT: motor sensory deficit Psychiatric exam: PRESENT: appropriate affect, normal mood. ABSENT: homicidal ideation, suicidal ideation Skin exam: PRESENT: dry, intact, warm. ABSENT: cyanosis, rash Results Laboratory Results: 11/10/18 04:24 11/09/18 07:50 11/09/18 11/09/18 11/10/18 07:50 07:50 04:24 WBC 5.6 5.2 RBC 4.32 L 4.34 L Hgb 14.1 D 14.0 Hct 40.2 39.8 MCV 93 92 MCH 32.6 32.3 MCHC 35.0 35.3 RDW 15.0 H 14.7 H Plt Count 118 L 121 L Seg Neutrophils % 72.4 70.6 Lymphocytes % 13.8 16.2 Monocytes % 11.3 11.3 Eosinophils % 1.8 1.2 Basophils % 0.7 0.7 Absolute Neutrophils 4.1 3.7 Absolute Lymphocytes 0.8 0.8 Absolute Monocytes 0.6 0.6 Absolute Eosinophils 0.1 0.1 Absolute Basophils 0.0 0.0 Sodium 138.3 Potassium 3.4 L Chloride 106 Carbon Dioxide 23 Anion Gap 9 BUN 18 Creatinine 1.13 Est GFR ( Amer) > 60 Est GFR (Non-Af Amer) > 60 Glucose 151 H Calcium 8.6 Magnesium 2.4 H Total Bilirubin 1.5 H AST 17 ALT 28 Alkaline Phosphatase 61 Total Protein 5.4 L Albumin 3.2 L 11/10/18 04:24 WBC RBC Hgb Hct MCV MCH MCHC RDW Plt Count Seg Neutrophils % Lymphocytes % Monocytes % Eosinophils % Basophils % Absolute Neutrophils Absolute Lymphocytes Absolute Monocytes Absolute Eosinophils Absolute Basophils Sodium Potassium Chloride Carbon Dioxide Anion Gap BUN Creatinine Est GFR ( Amer) Est GFR (Non-Af Amer) Glucose Calcium Magnesium 2.5 H Total Bilirubin AST ALT Alkaline Phosphatase Total Protein Albumin 11/08/18 11/08/18 11/08/18 13:00 13:00 19:10 Creatine Kinase 53 L 56 CK-MB (CK-2) 0.99 Troponin I < 0.012 11/08/18 11/09/18 11/09/18 19:10 00:50 00:50 Creatine Kinase 54 L CK-MB (CK-2) 0.99 1.05 Troponin I < 0.012 < 0.012 Impressions: Chest X-Ray 11/08/18 12:24 IMPRESSION: NO ACUTE RADIOGRAPHIC FINDING IN THE CHEST. Head CT 11/08/18 12:24 IMPRESSION: Mild involutional changes of aging. Mild chronic microvascular ischemia. No acute intracranial imaging findings. EVIDENCE OF ACUTE STROKE: NO. Head MRI 11/08/18 13:48 IMPRESSION: Chronic ischemic changes. EVIDENCE OF ACUTE STROKE: NO. Chest CT 11/09/18 00:00 IMPRESSION: 1. Diffuse bilateral bronchial wall thickening and areas of minimal clustered nodularity, for example in the right upper lobe. Findings are suggestive of atypical infection such as atypical mycobacterium but otherwise nonspecific. No evidence of interstitial lung disease in the setting of cough. 2. Irregular nodule of the lateral left lower lobe measuring 1.2 cm, nonspecific although concerning for malignancy. This may be characterized by PET-CT or percutaneous biopsy. At minimum recommend three-month follow-up CT to ensure stability or resolution. Assessment & Plan - Diagnosis (1) Altered mental status Qualifiers: Altered mental status type: transient alteration of awareness Qualified Code(s): R40.4 - Transient alteration of awareness Is this a current diagnosis for this admission?: Yes Plan: May be secondary to infection versus dehydration versus drug-induced. May also be delirium because he probably has some component of dementia. It seems a little bit better. Continue with current management. (2) Atypical pneumonia Is this a current diagnosis for this admission?: Yes Plan: May have an atypical pneumonia ongoing, he presented also with shortness of breath and cough, so agree with bacterial and atypical coverage, we also discus sed initiating antiviral coverage because he was on medications in the last few years that would make him more susceptible to herpes zoster. (3) Multiple myeloma Qualifiers: Multiple myeloma remission status: in relapse Qualified Code(s): C90.02 - Multiple myeloma in relapse Is this a current diagnosis for this admission?: Yes Plan: Recently worsened disease and started on darzelex, will decide on further therapy once discharged. (4) Pulmonary nodule Is this a current diagnosis for this admission?: Yes Plan: May be infection related but also may be malignancy related, multiple myeloma can rarely do this, may be another primary cancer. We will follow this up as an outpatient. - Time Time Spent with patient: 35 or more minutes - Inpatient Certification Based on my medical assessment, after consideration of the patient's comor bidities, presenting symptoms, or acuity I expect that the services needed warrant INPATIENT care.: Yes I certify that my determination is in accordance with my understanding of Medicare's requirements for reasonable and necessary INPATIENT services [42 CFR 412.3e].: Yes Medical Necessity: Need for Neurological Checks, Need for IV Antibiotics, Risk of Complication if Not Cared For in Hospital
--- NOTE | 2018-11-10 08:54 | PDOC PROGRESS REPORT ---
Subjective Progress Note for:: 11/10/18 Subjective:: Patient is currently doing fair Patient was very confused last night and very combative Patient doing well this morning Denied any chest pain denied any shortness of the breath Patient CT of the chest shows pulmonary nodules Patient still have a cough Reason For Visit: AMS Physical Exam Vital Signs: Temp Pulse Resp BP Pulse Ox 98.9 F 87 15 150/63 H 100 11/10/18 08:00 11/10/18 08:00 11/10/18 08:00 11/10/18 08:00 11/10/18 08:00 Intake & Output 11/09/18 11/10/18 11/11/18 06:59 06:59 06:59 Intake Total 1100 1807 Output Total 950 Balance 150 1807 Weight 93 kg 93 kg General appearance: PRESENT: no acute distress, well-developed, well-nourished Head exam: PRESENT: atraumatic, normocephalic Eye exam: PRESENT: conjunctiva pink, EOMI, PERRLA. ABSENT: scleral icterus Ear exam: PRESENT: normal external ear exam Mouth exam: PRESENT: moist, tongue midline Neck exam: PRESENT: full ROM. ABSENT: carotid bruit, JVD, lymphadenopathy, thyromegaly Respiratory exam: PRESENT: clear to auscultation isaiah Cardiovascular exam: PRESENT: RRR. ABSENT: diastolic murmur, rubs, systolic murmur Vascular exam: PRESENT: normal capillary refill GI/Abdominal exam: PRESENT: normal bowel sounds, soft. ABSENT: distended, guarding, mass, organolmegaly, rebound, tenderness Rectal exam: PRESENT: deferred Musculoskeletal exam: PRESENT: ambulatory Neurological exam: PRESENT: alert, awake, oriented to person, oriented to place, oriented to time, oriented to situation, CN II-XII grossly intact. ABSENT: motor sensory deficit Psychiatric exam: PRESENT: appropriate affect, normal mood. ABSENT: homicidal ideation, suicidal ideation Skin exam: PRESENT: dry, intact, warm. ABSENT: cyanosis, rash Results Laboratory Results: 11/10/18 04:24 11/09/18 07:50 11/09/18 11/10/18 11/10/18 07:50 04:24 04:24 WBC 5.2 RBC 4.34 L Hgb 14.0 Hct 39.8 MCV 92 MCH 32.3 MCHC 35.3 RDW 14.7 H Plt Count 121 L Seg Neutrophils % 70.6 Lymphocytes % 16.2 Monocytes % 11.3 Eosinophils % 1.2 Basophils % 0.7 Absolute Neutrophils 3.7 Absolute Lymphocytes 0.8 Absolute Monocytes 0.6 Absolute Eosinophils 0.1 Absolute Basophils 0.0 Sodium 138.3 Potassium 3.4 L Chloride 106 Carbon Dioxide 23 Anion Gap 9 BUN 18 Creatinine 1.13 Est GFR ( Amer) > 60 Est GFR (Non-Af Amer) > 60 Glucose 151 H Calcium 8.6 Magnesium 2.4 H 2.5 H Total Bilirubin 1.5 H AST 17 ALT 28 Alkaline Phosphatase 61 Total Protein 5.4 L Albumin 3.2 L 11/08/18 11/08/18 11/08/18 13:00 13:00 19:10 Creatine Kinase 53 L 56 CK-MB (CK-2) 0.99 Troponin I < 0.012 11/08/18 11/09/18 11/09/18 19:10 00:50 00:50 Creatine Kinase 54 L CK-MB (CK-2) 0.99 1.05 Troponin I < 0.012 < 0.012 Impressions: Chest X-Ray 11/08/18 12:24 IMPRESSION: NO ACUTE RADIOGRAPHIC FINDING IN THE CHEST. Head CT 11/08/18 12:24 IMPRESSION: Mild involutional changes of aging. Mild chronic microvascular ischemia. No acute intracranial imaging findings. EVIDENCE OF ACUTE STROKE: NO. Head MRI 11/08/18 13:48 IMPRESSION: Chronic ischemic changes. EVIDENCE OF ACUTE STROKE: NO. Chest CT 11/09/18 00:00 IMPRESSION: 1. Diffuse bilateral bronchial wall thickening and areas of minimal clustered nodularity, for example in the right upper lobe. Findings are suggestive of atypical infection such as atypical mycobacterium but otherwise n onspecific. No evidence of interstitial lung disease in the setting of cough. 2. Irregular nodule of the lateral left lower lobe measuring 1.2 cm, nonspecific although concerning for malignancy. This may be characterized by PET-CT or percutaneous biopsy. At minimum recommend three-month follow-up CT to ensure stability or resolution. Assessment & Plan - Diagnosis (1) Altered mental status Qualifiers: Altered mental status type: transient alteration of awareness Qualified Code(s): R40.4 - Transient alteration of awareness Is this a current diagnosis for this admission?: Yes Plan: Multiple etiology with pretty much all test is negative We will continue with IV antibiotics For possible medication side effect Will cover with the Valtrex (2) Multiple myeloma Qualifiers: Multiple myeloma remission status: in relapse Qualified Code(s): C90.02 - Multiple myeloma in relapse Is this a current diagnosis for this admission?: Yes Plan: Follow with the oncology (3) Type 2 diabetes mellitus Qualifiers: Diabetes mellitus longterm insulin use: with watermelon inspector use Diabetes mellitus complication status: with unspecified complications Qualified Code(s): E11.8 - Type 2 diabetes mellitus with unspecified complications; Z79.4 - intermediate project manager (current) use of insulin Is this a current diagnosis for this admission?: Yes Plan: Continues a sliding scale (4) Chronic pain syndrome Is this a current diagnosis for this admission?: Yes Plan: Patient is getting the pain medications from the pain management (5) Chronic back pain Qualifiers: Sciatica laterality: bilateral sciatica Is this a current diagnosis for this admission?: Yes (6) Frequent falls Is this a current diagnosis for this admission?: Yes Plan: Multiple etiology due to the chronic pain medications weakness from the chemo and a significant peripheral diabetic neuropathy (7) Acute encephalopathy Is this a current diagnosis for this admission?: Yes Plan: We will cover with the antibiotic and antiviral drugs (8) Peripheral neuropathy Qualifiers: Peripheral neuropathy type: polyneuropathy, unspecified Is this a current diagnosis for this admission?: Yes Plan: Continues to current medications (9) Atypical pneumonia Is this a current diagnosis for this admission?: Yes Plan: Finished IV antibiotic (10) Pulmonary nodule Is this a current diagnosis for this admission?: Yes Plan: To rule out any malignancy consult the pulmonary consult the oncology - Time Time Spent with patient: 15-24 minutes Medications reviewed and adjusted accordingly: Yes Anticipated discharge: Home Within: Other - Plan Summary Plan Summary: Very extensive discussions with the patient's We will continue the IV antibiotic And Valtrex If the patient's mental status does not improve we will consider a lumbar puncture
[2018-11-10] MEDS: LUBIPROSTONE 24 MCG CAPSULE PO SCH ×2 (09:38→17:58)
[2018-11-10] MEDS: INSULIN LISPRO 100 UNIT/ML 3 ML VIAL SUBCUT SCH ×4 (09:38→22:12)
[2018-11-10] MEDS: GUAIFENESIN 600 MG TABLET.SA PO SCH ×2 (10:53→21:31)
[2018-11-10] MEDS: FAMOTIDINE 20 MG TABLET PO SCH ×2 (10:53→21:32)
[2018-11-10] MEDS: VALACYCLOVIR HCL 500 MG TABLET PO SCH ×2 (10:53→22:10)
[2018-11-10] MEDS: CEFEPIME 2 GM/D5W RTU 2 GM/50 ML RTUPB IV SCH ×2 (10:54→21:31)
[2018-11-10] MEDS: AZITHROMYCIN 250 MG TABLET PO SCH (10:54)
[2018-11-10] MEDS: FINASTERIDE 5 MG TABLET PO SCH (10:54)
[2018-11-10] MEDS: ENOXAPARIN SODIUM INJ 40 MG/0.4 ML DISP.SYRIN SUBCUT SCH (10:54)
[2018-11-10] MEDS: ASPIRIN 81 MG TABLET, ENT COATED PO SCH (10:54)
[2018-11-10] MEDS: PREGABALIN 50 MG CAPSULE PO SCH ×2 (10:54→21:32)
[2018-11-10] MEDS: NORMAL SALINE 1000 ML 1,000 ML IV PRN (14:06)
--- NOTE | 2018-11-10 14:51 | PDOC CONSULTATION ---
Consultation Consult Date: 11/10/18 Attending physician:: SEBASTIAN JAMIL Consult reason:: Confusionabnormal CT scan of the chest History of Present Illness Admission Date/PCP: 11/08/18 14:02 SEBASTIAN JAMIL MD History of Present Illness: OTTO MIRZA is a 73 year old male multiple myeloma recently received chemotherapy with confusion some shortness of breath confusion apparently has persisted no evidence for hemoptysis PPD was negative dates unknown ;he is very confused but it does not appear to be any history of chronic lung disease as a child or adolescent. 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 Denies: Seizures Endocrine Medical History: Reports: Diabetes Mellitus Type 1, Diabetes Mellitus Type 2, Hypothyroidism Denies: Hyperthyroidism Malignancy Medical History: Reports: Bone Cancer GI Medical History: Denies: Cirrhosis, Gastroesophageal Reflux Disease, Hepatitis Musculoskeltal Medical History: Reports: Arthritis, Other Skin Medical History: Denies: Eczema, Psoriasis Psychiatric Medical History: Reports: Depression - History of Past Surgical History Past Surgical History: Reports: Orthopedic Surgery - Bilateral shoulder and hip surgery., Tonsillectomy, Other - cataracts Social History Information Source: [facility] Records Lives with: Spouse/Significant other Smoking Status: Never Smoker Frequency of Alcohol Use: None Hx Recreational Drug Use: No Drugs: None Hx Prescription Drug Abuse: No - Advance Directive Resuscitation Status: Full Code Family History Parental Family History Reviewed: No Children Family History Reviewed: No Sibling(s) Family History Reviewed.: No Medication/Allergy Home Medications: Aspirin [Ecotrin 81 mg EC Tablet] 81 mg PO DAILY 11/08/18 Atorvastatin Calcium [Lipitor 20 mg Tablet] 10 mg PO QHS 11/08/18 Empagliflozin [Jardiance] 25 mg PO DAILY 11/08/18 Finasteride [Proscar 5 mg Tablet] 5 mg PO DAILY 11/08/18 Insulin Aspart [Novolog Flexpen] 10 unit SQ MEALS 11/08/18 Insulin Glargine,Hum.rec.anlog [Lantus Insulin 100 Unit/mL] 55 unit SQ QHS 11/08/18 Lubiprostone [Amitiza 24 Mcg Capsule] 24 mcg PO BIDBS 11/08/18 Pomalidomide [Pomalyst] 2 mg PO DAILY 11/08/18 Pregabalin [Lyrica 100 mg Capsule] 100 mg PO Q8 11/08/18 Tamsulosin HCl [Flomax 0.4 mg Cap.sr] 0.8 mg PO PCSUPPER 11/08/18 Temazepam [Restoril 15 mg Capsule] 15 mg PO QHS 11/08/18 Allergies/Adverse Reactions: No Known Allergies Allergy (Verified 11/08/18 12:38) Review of Systems ROS unobtainable: Due to mental status Physical Exam Vital Signs: Temp Pulse Resp BP Pulse Ox 98.9 F 87 15 150/63 H 100 11/10/18 08:00 11/10/18 08:00 11/10/18 08:00 11/10/18 08:00 11/10/18 08:00 Intake & Output 11/09/18 11/10/18 11/11/18 06:59 06:59 06:59 Intake Total 1100 1807 50 Output Total 950 Balance 150 1807 50 Weight 93 kg 93 kg General appearance: PRESENT: no acute distress, disheveled, well-developed, well-nourished. ABSENT: cooperative Head exam: PRESENT: atraumatic, normocephalic Eye exam: PRESENT: conjunctiva pale, EOMI. ABSENT: nystagmus, periorbital swelling, scleral icterus Mouth exam: PRESENT: dry mucosa, neck supple, tongue midline Neck exam: ABSENT: carotid bruit, full ROM, JVD, lymphadenopathy, meningismus, tenderness, thyromegaly, tracheal deviation, tracheostomy, other Respiratory exam: PRESENT: decreased breath sounds, prolonged expiratory phas, rhonchi, unlabored, wheezes. ABSENT: retraction, stridor Cardiovascular exam: PRESENT: RRR, +S1, +S2 Pulses: PRESENT: normal radial pulses GI/Abdominal exam: PRESENT: soft. ABSENT: tenderness Extremities exam: ABSENT: calf tenderness, clubbing, joint swelling Musculoskeletal exam: ABSENT: deformity, dislocation Neurological exam: PRESENT: altered Skin exam: PRESENT: dry, warm Results Laboratory Results: 11/10/18 04:24 11/09/18 07:50 11/10/18 11/10/18 04:24 04:24 WBC 5.2 RBC 4.34 L Hgb 14.0 Hct 39.8 MCV 92 MCH 32.3 MCHC 35.3 RDW 14.7 H Plt Count 121 L Seg Neutrophils % 70.6 Lymphocytes % 16.2 Monocytes % 11.3 Eosinophils % 1.2 Basophils % 0.7 Absolute Neutrophils 3.7 Absolute Lymphocytes 0.8 Absolute Monocytes 0.6 Absolute Eosinophils 0.1 Absolute Basophils 0.0 Magnesium 2.5 H 11/08/18 17:35 Clean Catch Midstream Urine Culture - Final Staph Coagulase Negative 11/08/18 11/08/18 11/08/18 13:00 13:00 19:10 Creatine Kinase 53 L 56 CK-MB (CK-2) 0.99 Troponin I < 0.012 11/08/18 11/09/18 11/09/18 19:10 00:50 00:50 Creatine Kinase 54 L CK-MB (CK-2) 0.99 1.05 Troponin I < 0.012 < 0.012 Impressions: Chest X-Ray 11/08/18 12:24 IMPRESSION: NO ACUTE RADIOGRAPHIC FINDING IN THE CHEST. Head CT 11/08/18 12:24 IMPRESSION: Mild involutional changes of aging. Mild chronic microvascular ischemia. No acute intracranial imaging findings. EVIDENCE OF ACUTE STROKE: NO. Head MRI 11/08/18 13:48 IMPRESSION: Chronic ischemic changes. EVIDENCE OF ACUTE STROKE: NO. Chest CT 11/09/18 00:00 IMPRESSION: 1. Diffuse bilateral bronchial wall thickening and areas of minimal clustered nodularity, for example in the right upper lobe. Findings are suggestive of atypical infection such as atypical mycobacterium but otherwise nonspecific. No evidence of interstitial lung disease in the setting of cough. 2. Irregular nodule of the lateral left lower lobe measuring 1.2 cm, nonspecific although concerning for malignancy. This may be characterized by PET-CT or percutaneous biopsy. At minimum recommend three-month follow-up CT to ensure stability or resolution. Assessment & Plan - Diagnosis (1) Altered mental status Qualifiers: Altered mental status type: transient alteration of awareness Qualified Code(s): R40.4 - Transient alteration of awareness Is this a current diagnosis for this admission?: Yes Plan: CT scan implies some microvascular changes (2) Atypical pneumonia Is this a current diagnosis for this admission?: Yes Plan: No leukocytosis, no left shift, normal ABG, afebrile (3) Multiple myeloma Qualifiers: Multiple myeloma remission status: in relapse Qualified Code(s): C90.02 - Multiple myeloma in relapse Is this a current diagnosis for this admission?: Yes Plan: as per oncology (4) Left lower lobe pulmonary nodule Is this a current diagnosis for this admission?: Yes Plan: semi-opaque would suggest we follow per Cherelle's criteria for 36 months
[2018-11-10] MEDS: TAMSULOSIN HCL 0.4 MG CAP.SR.24H PO SCH (17:59)
[2018-11-10] MEDS: Pomalidomide [Pomalyst] 2 MG PO SCH (21:31)
[2018-11-10] MEDS: ATORVASTATIN CALCIUM 20 MG TABLET PO SCH (21:31)
[2018-11-10] MEDS: TEMAZEPAM 15 MG CAPSULE PO SCH (21:31)
[2018-11-10] MEDS ORDERED: TUBERCULIN,PURIF.PROT.DERIV. 5 TU/0.1 ML TEST 1 ML VIAL ID ONE (22:00)
[2018-11-10] MEDS: INSULIN GLARGINE,HUM.REC.ANLOG 300 UNIT/3 ML INSULN.PEN SUBCUT SCH (22:13)
[2018-11-11] MEDS: NORMAL SALINE 1000 ML 1,000 ML IV PRN (02:40)
[2018-11-11 05:26] LABS: ABSOLUTE EOSINOPHILS # (AUTO) 0.1 10^3/uL (0.0-0.6); ABSOLUTE LYMPHOCYTES (AUTO) 0.8 10^3/uL (0.5-4.7); ABSOLUTE MONOCYTES (AUTO) 0.5 10^3/uL (0.1-1.4); ABSOLUTE NEUT (AUTO) 3.1 10^3/uL (1.7-8.2); BASOPHILS % (AUTO) 0.7 % (0-2); EOSINOPHILS % (AUTO) 2.6 % (0-6); HEMATOCRIT 38.9 % (37.9-51.0); HEMOGLOBIN 13.8 g/dL (13.5-17.0); MEAN CORPUSCULAR HEMOGLOBIN 32.7 pg (27.0-33.4); MEAN CORPUSCULAR HGB CONC 35.5 g/dL (32.0-36.0); MEAN CORPUSCULAR VOLUME 92 fl (80-97); MONOCYTES % (AUTO) 11.5 % (3-13); PLATELET COUNT 118 10^3/uL (150-450); RED BLOOD COUNT 4.22 10^6/uL (4.35-5.55); RED CELL DISTRIBUTION WIDTH 15.1 % (11.5-14.0); SEGMENTED NEUTROPHILS % (AUTO) 67.2 % (42-78); TOTAL CELLS COUNTED % (AUTO) 100 %; WHITE BLOOD COUNT 4.6 10^3/uL (4.0-10.5)
[2018-11-11] MEDS: LEVOTHYROXINE SODIUM 0.15 MG TABLET PO SCH (05:28)
[2018-11-11] MEDS: INSULIN LISPRO 100 UNIT/ML 3 ML VIAL SUBCUT SCH ×4 (08:32→22:23)
--- NOTE | 2018-11-11 08:35 | PDOC PROGRESS REPORT ---
Subjective Progress Note for:: 11/11/18 Subjective:: Patient is feeling better today According to the nursing staff and the no confusion overnight and patient slept Patient's denied any chest pain to than any shortness of the breath Patient was little sleepy today Reason For Visit: AMS Physical Exam Vital Signs: Temp Pulse Resp BP Pulse Ox 97.3 F 76 16 139/70 H 95 11/11/18 04:13 11/11/18 07:00 11/11/18 04:13 11/11/18 04:13 11/11/18 04:13 Intake & Output 11/10/18 11/11/18 11/12/18 06:59 06:59 06:59 Intake Total 1807 2754 Output Total 900 Balance 1807 1854 Weight 93 kg 94.1 kg General appearance: PRESENT: no acute distress, well-developed, well-nourished Head exam: PRESENT: atraumatic, normocephalic Eye exam: PRESENT: conjunctiva pink, EOMI, PERRLA. ABSENT: scleral icterus Ear exam: PRESENT: normal external ear exam Mouth exam: PRESENT: moist, tongue midline Neck exam: PRESENT: full ROM. ABSENT: carotid bruit, JVD, lymphadenopathy, thyromegaly Respiratory exam: PRESENT: clear to auscultation isaiah Cardiovascular exam: PRESENT: RRR. ABSENT: diastolic murmur, rubs, systolic murmur Vascular exam: PRESENT: normal capillary refill GI/Abdominal exam: PRESENT: normal bowel sounds, soft. ABSENT: distended, guarding, mass, organolmegaly, rebound, tenderness Rectal exam: PRESENT: deferred Neurological exam: PRESENT: alert, awake, oriented to person. ABSENT: motor sensory deficit Psychiatric exam: PRESENT: appropriate affect, normal mood. ABSENT: homicidal ideation, suicidal ideation Skin exam: PRESENT: dry, intact, warm. ABSENT: cyanosis, rash Results Laboratory Results: 11/11/18 04:34 11/09/18 07:50 11/11/18 11/11/18 04:34 04:34 WBC 4.6 RBC 4.22 L Hgb 13.8 Hct 38.9 MCV 92 MCH 32.7 MCHC 35.5 RDW 15.1 H Plt Count 118 L Seg Neutrophils % 67.2 Lymphocytes % 18.0 Monocytes % 11.5 Eosinophils % 2.6 Basophils % 0.7 Absolute Neutrophils 3.1 Absolute Lymphocytes 0.8 Absolute Monocytes 0.5 Absolute Eosinophils 0.1 Absolute Basophils 0.0 Magnesium 2.4 H 11/08/18 17:35 Clean Catch Midstream Urine Culture - Final Staph Coagulase Negative 11/08/18 11/08/18 11/08/18 13:00 13:00 19:10 Creatine Kinase 53 L 56 CK-MB (CK-2) 0.99 Troponin I < 0.012 11/08/18 11/09/18 11/09/18 19:10 00:50 00:50 Creatine Kinase 54 L CK-MB (CK-2) 0.99 1.05 Troponin I < 0.012 < 0.012 Impressions: Chest X-Ray 11/08/18 12:24 IMPRESSION: NO ACUTE RADIOGRAPHIC FINDING IN THE CHEST. Head CT 11/08/18 12:24 IMPRESSION: Mild involutional changes of aging. Mild chronic microvascular ischemia. No acute intracranial imaging findings. EVIDENCE OF ACUTE STROKE: NO. Head MRI 11/08/18 13:48 IMPRESSION: Chronic ischemic changes. EVIDENCE OF ACUTE STROKE: NO. Chest CT 11/09/18 00:00 IMPRESSION: 1. Diffuse bilateral bronchial wall thickening and areas of minimal clustered nodularity, for example in the right upper lobe. Findings are suggestive of atypical infection such as atypical mycobacterium but otherwise nonspecific. No evidence of interstitial lung disease in the setting of cough. 2. Irregular nodule of the lateral left lower lobe measuring 1.2 cm, nonspecific although concerning for malignancy. This may be characterized by PET-CT or percutaneous biopsy. At minimum recommend three-month follow-up CT to ensure stability or resolution. Assessment & Plan - Diagnosis (1) Altered mental status Qualifiers: Altered mental status type: transient alteration of awareness Qualified Code(s): R40.4 - Transient alteration of awareness Is this a current diagnosis for this admission?: Yes Plan: Unclear etiology currently all improving (2) Multiple myeloma Qualifiers: Multiple myeloma remission status: in relapse Qualified Code(s): C90.02 - Multiple myeloma in relapse Is this a current diagnosis for this admission?: Yes Plan: Follow with the oncology (3) Type 2 diabetes mellitus Qualifiers: Diabetes mellitus nursing home insulin use: with superintendent container terminal use Diabetes mellitus complication status: with unspecified complications Qualified Code(s): E11.8 - Type 2 diabetes mellitus with unspecified complications; Z79.4 - shelter (current) use of insulin Is this a current diagnosis for this admission?: Yes Plan: Continues a sliding scale (4) Chronic pain syndrome Is this a current diagnosis for this admission?: Yes Plan: Patient is getting the pain medications from the pain management (5) Chronic back pain Qualifiers: Sciatica laterality: bilateral sciatica Is this a current diagnosis for this admission?: Yes (6) Frequent falls Is this a current diagnosis for this admission?: Yes Plan: Multiple etiology due to the chronic pain medications weakness from the chemo and a significant peripheral diabetic neuropathy (7) Acute encephalopathy Is this a current diagnosis for this admission?: Yes Plan: Currently all resolving (8) Peripheral neuropathy Qualifiers: Peripheral neuropathy type: polyneuropathy, unspecified Is this a current diagnosis for this admission?: Yes Plan: Continues to current medications (9) Atypical pneumonia Is this a current diagnosis for this admission?: Yes Plan: Finished IV antibiotic (10) Pulmonary nodule Is this a current diagnosis for this admission?: Yes Plan: To rule out any malignancy consult the pulmonary consult the oncology - Time Time Spent with patient: 15-24 minutes Medications reviewed and adjusted accordingly: Yes Anticipated discharge: Home Within: within 24 hours - Plan Summary Plan Summary: Patient is currently getting better Discussed with the on the bedside
[2018-11-11] MEDS: FINASTERIDE 5 MG TABLET PO SCH (10:16)
[2018-11-11] MEDS: VALACYCLOVIR HCL 500 MG TABLET PO SCH ×2 (10:16→22:27)
[2018-11-11] MEDS: FAMOTIDINE 20 MG TABLET PO SCH ×2 (10:16→22:22)
[2018-11-11] MEDS: AZITHROMYCIN 250 MG TABLET PO SCH (10:16)
[2018-11-11] MEDS: ASPIRIN 81 MG TABLET, ENT COATED PO SCH (10:16)
[2018-11-11] MEDS: PREGABALIN 50 MG CAPSULE PO SCH ×2 (10:16→22:22)
[2018-11-11] MEDS: GUAIFENESIN 600 MG TABLET.SA PO SCH ×2 (10:16→22:22)
[2018-11-11] MEDS: LUBIPROSTONE 24 MCG CAPSULE PO SCH ×2 (10:17→17:57)
[2018-11-11] MEDS: ENOXAPARIN SODIUM INJ 40 MG/0.4 ML DISP.SYRIN SUBCUT SCH (10:17)
[2018-11-11] MEDS: CEFEPIME 2 GM/D5W RTU 2 GM/50 ML RTUPB IV SCH ×2 (10:17→22:26)
[2018-11-11] MEDS: TAMSULOSIN HCL 0.4 MG CAP.SR.24H PO SCH (17:57)
[2018-11-11] MEDS ORDERED: INSULIN GLARGINE,HUM.REC.ANLOG 1,000 UNIT/10 ML VIAL SUBCUT SCH (22:00)
[2018-11-11] MEDS: ATORVASTATIN CALCIUM 20 MG TABLET PO SCH (22:21)
[2018-11-11] MEDS: Pomalidomide [Pomalyst] 2 MG PO SCH (22:22)
[2018-11-11] MEDS: TEMAZEPAM 15 MG CAPSULE PO SCH (22:22)
[2018-11-12] MEDS: LEVOTHYROXINE SODIUM 0.15 MG TABLET PO SCH (05:32)
[2018-11-12 06:07] LABS: ABSOLUTE BASOPHILS # (AUTO) 0.1 10^3/uL (0.0-0.2); ABSOLUTE EOSINOPHILS # (AUTO) 0.1 10^3/uL (0.0-0.6); ABSOLUTE MONOCYTES (AUTO) 0.5 10^3/uL (0.1-1.4); ABSOLUTE NEUT (AUTO) 2.7 10^3/uL (1.7-8.2); BASOPHILS % (AUTO) 1.3 % (0-2); EOSINOPHILS % (AUTO) 2.4 % (0-6); HEMATOCRIT 40.2 % (37.9-51.0); HEMOGLOBIN 14.1 g/dL (13.5-17.0); LYMPHOCYTES % (AUTO) 22.8 % (13-45); MEAN CORPUSCULAR HEMOGLOBIN 32.4 pg (27.0-33.4); MEAN CORPUSCULAR HGB CONC 35.1 g/dL (32.0-36.0); MEAN CORPUSCULAR VOLUME 92 fl (80-97); MONOCYTES % (AUTO) 10.6 % (3-13); PLATELET COUNT 129 10^3/uL (150-450); RED BLOOD COUNT 4.36 10^6/uL (4.35-5.55); RED CELL DISTRIBUTION WIDTH 15.3 % (11.5-14.0); SEGMENTED NEUTROPHILS % (AUTO) 62.9 % (42-78); TOTAL CELLS COUNTED % (AUTO) 100 %; WHITE BLOOD COUNT 4.4 10^3/uL (4.0-10.5)
[2018-11-12 07:07] LABS: ANION GAP 7 (5-19); BLOOD UREA NITROGEN 12 mg/dL (7-20); CALCIUM 8.5 mg/dL (8.4-10.2); CARBON DIOXIDE 22 mmol/L (22-30); CHLORIDE 110 mmol/L (98-107); GLUCOSE 108 mg/dL (75-110); POTASSIUM 3.3 mmol/L (3.6-5.0); SODIUM 139.4 mmol/L (137-145)
[2018-11-12] MEDS: LUBIPROSTONE 24 MCG CAPSULE PO SCH (07:33)
--- NOTE | 2018-11-12 08:51 | PDOC PROGRESS REPORT ---
Subjective Progress Note for:: 11/12/18 Subjective:: Patient is mentally and physically back to baseline Reason For Visit: AMS Physical Exam Vital Signs: Temp Pulse Resp BP Pulse Ox 98.2 F 74 18 149/74 H 99 11/11/18 23:30 11/12/18 02:00 11/11/18 23:30 11/11/18 23:30 11/11/18 23:30 Intake & Output 11/11/18 11/12/18 11/13/18 06:59 06:59 06:59 Intake Total 2754 2105 Output Total 900 1302 Balance 1854 803 Weight 94.1 kg 93.6 kg General appearance: PRESENT: no acute distress, well-developed, well-nourished Head exam: PRESENT: atraumatic, normocephalic Eye exam: PRESENT: conjunctiva pink, EOMI, PERRLA. ABSENT: scleral icterus Ear exam: PRESENT: normal external ear exam Mouth exam: PRESENT: moist, tongue midline Neck exam: ABSENT: carotid bruit, JVD, lymphadenopathy, thyromegaly Respiratory exam: PRESENT: clear to auscultation isaiah. ABSENT: rales, rhonchi, wheezes Cardiovascular exam: PRESENT: RRR. ABSENT: diastolic murmur, rubs, systolic murmur Pulses: PRESENT: normal dorsalis pedis pul Vascular exam: PRESENT: normal capillary refill GI/Abdominal exam: PRESENT: normal bowel sounds, soft. ABSENT: distended, guarding, mass, organolmegaly, rebound, tenderness Rectal exam: PRESENT: deferred Extremities exam: PRESENT: full ROM. ABSENT: calf tenderness, clubbing, pedal edema Neurological exam: PRESENT: alert, awake, oriented to person, oriented to place, oriented to time, oriented to situation, CN II-XII grossly intact. ABSENT: motor sensory deficit Psychiatric exam: PRESENT: appropriate affect, normal mood. ABSENT: homicidal ideation, suicidal ideation Skin exam: PRESENT: dry, intact, warm. ABSENT: cyanosis, rash Results Laboratory Results: 11/12/18 04:54 11/12/18 04:54 11/12/18 11/12/18 04:54 04:54 WBC 4.4 RBC 4.36 Hgb 14.1 Hct 40.2 MCV 92 MCH 32.4 MCHC 35.1 RDW 15.3 H Plt Count 129 L Seg Neutrophils % 62.9 Lymphocytes % 22.8 Monocytes % 10.6 Eosinophils % 2.4 Basophils % 1.3 Absolute Neutrophils 2.7 Absolute Lymphocytes 1.0 Absolute Monocytes 0.5 Absolute Eosinophils 0.1 Absolute Basophils 0.1 Sodium 139.4 Potassium 3.3 L Chloride 110 H Carbon Dioxide 22 Anion Gap 7 BUN 12 Creatinine 0.95 Est GFR ( Amer) > 60 Est GFR (Non-Af Amer) > 60 Glucose 108 Calcium 8.5 11/08/18 11/08/18 11/08/18 13:00 13:00 19:10 Creatine Kinase 53 L 56 CK-MB (CK-2) 0.99 Troponin I < 0.012 11/08/18 11/09/18 11/09/18 19:10 00:50 00:50 Creatine Kinase 54 L CK-MB (CK-2) 0.99 1.05 Troponin I < 0.012 < 0.012 Impressions: Chest X-Ray 11/08/18 12:24 IMPRESSION: NO ACUTE RADIOGRAPHIC FINDING IN THE CHEST. Head CT 11/08/18 12:24 IMPRESSION: Mild involutional changes of aging. Mild chronic microvascular ischemia. No acute intracranial imaging findings. EVIDENCE OF ACUTE STROKE: NO. Head MRI 11/08/18 13:48 IMPRESSION: Chronic ischemic changes. EVIDENCE OF ACUTE STROKE: NO. Chest CT 11/09/18 00:00 IMPRESSION: 1. Diffuse bilateral bronchial wall thickening and areas of minimal clustered nodularity, for example in the right upper lobe. Findings are suggestive of atypical infection such as atypical mycobacterium but otherwise nonspecific. No evidence of interstitial lung disease in the setting of cough. 2. Irregular nodule of the lateral left lower lobe measuring 1.2 cm, nonspecific although concerning for malignancy. This may be characterized by PET-CT or percutaneous biopsy. At minimum recommend three-month follow-up CT to ensure stability or resolution. Assessment & Plan - Diagnosis (1) Altered mental status Qualifiers: Altered mental status type: transient alteration of awareness Qualified Code(s): R40.4 - Transient alteration of awareness Is this a current diagnosis for this admission?: Yes Plan: Possible multifactorial, back to baseline, discharge home today (2) Atypical pneumonia Is this a current diagnosis for this admission?: Yes Plan: Improved, continue with doxycycline as well as Valtrex for 1 week post discharge (3) Multiple myeloma Qualifiers: Multiple myeloma remission status: in relapse Qualified Code(s): C90.02 - Multiple myeloma in relapse Is this a current diagnosis for this admission?: Yes Plan: Patient is to be seen next week, will decide on further therapy thereafter. (4) Pulmonary nodule Is this a current diagnosis for this admission?: Yes Plan: We will work this up as an outpatient
[2018-11-12] MEDS ORDERED: POTASSIUM CHLORIDE 10 MEQ CAPSULE.ER PO ONE (09:00)
[2018-11-12 09:02] VITALS: BP 109/60
--- NOTE | 2018-11-12 09:18 | PDOC DISCHARGE SUMMARY ---
General - Admit/Disc Date/PCP Admission Date/Primary Care Provider: 11/08/18 14:02 SEBASTIAN JAMIL MD Discharge Date: 11/12/18 - Discharge Diagnosis (1) Altered mental status Is this a current diagnosis for this admission?: Yes Summary: Currently all resolved (2) Multiple myeloma Is this a current diagnosis for this admission?: Yes Summary: Follow with oncology (3) Type 2 diabetes mellitus Is this a current diagnosis for this admission?: Yes Summary: Continues to current medications (4) Chronic pain syndrome Is this a current diagnosis for this admission?: Yes Summary: Decrease the Lyrica 50 mg p.o. twice a day and follow with the pain management (5) Chronic back pain Is this a current diagnosis for this admission?: Yes Summary: Follow with the pain management (6) Frequent falls Is this a current diagnosis for this admission?: Yes Summary: Home health and physical therapy and fall precautions (7) Acute encephalopathy Is this a current diagnosis for this admission?: Yes Summary: Most likely a metabolic encephalopathy currently all resolved (8) Peripheral neuropathy Is this a current diagnosis for this admission?: Yes Summary: Continues to Lyrica (9) Atypical pneumonia Is this a current diagnosis for this admission?: Yes Summary: As per discussed with the pulmonary continues with the doxycycline coverage to cover the atypical another bacteria (10) Pulmonary nodule Is this a current diagnosis for this admission?: Yes Summary: Follow outpatients pulmonary - Additional Information Resuscitation Status: Full Code Discharge Diet: Diabetic Discharge Activity: Activity As Tolerated, Energy Conservation Prescriptions: Doxycycline Monohydrate 100 mg PO BID #14 tablet Levothyroxine Sodium [Synthroid 0.15 mg Tablet] 0.15 mg PO Q6AM #30 tablet Pregabalin [Lyrica 50 mg Capsule] 50 mg PO Q12 #60 capsule Valacyclovir HCl [Valtrex 500 mg Tablet] 1,000 mg PO Q12 #14 tablet Home Medications: Aspirin [Ecotrin 81 mg EC Tablet] 81 mg PO DAILY 11/08/18 Atorvastatin Calcium [Lipitor 20 mg Tablet] 10 mg PO QHS 11/08/18 Empagliflozin [Jardiance] 25 mg PO DAILY 11/08/18 Finasteride [Proscar 5 mg Tablet] 5 mg PO DAILY 11/08/18 Insulin Aspart [Novolog Flexpen] 10 unit SQ MEALS 11/08/18 Insulin Glargine,Hum.rec.anlog [Lantus Insulin 100 Unit/mL] 55 unit SQ QHS 11/08/18 Lubiprostone [Amitiza 24 Mcg Capsule] 24 mcg PO BIDBS 11/08/18 Pomalidomide [Pomalyst] 2 mg PO DAILY 11/08/18 Tamsulosin HCl [Flomax 0.4 mg Cap.sr] 0.8 mg PO PCSUPPER 11/08/18 Temazepam [Restoril 15 mg Capsule] 15 mg PO QHS 11/08/18 Doxycycline Monohydrate 100 mg PO BID #14 tablet 11/12/18 Levothyroxine Sodium [Synthroid 0.15 mg Tablet] 0.15 mg PO Q6AM #30 tablet 11/12/18 Pregabalin [Lyrica 50 mg Capsule] 50 mg PO Q12 #60 capsule 11/12/18 Valacyclovir HCl [Valtrex 500 mg Tablet] 1,000 mg PO Q12 #14 tablet 11/12/18 History of Present Illness History of Present Illness: OTTO MIRZA is a 73 year old male This is a 73-year-old male with a history of multiple myeloma recently on progressions of the disease recently start the new medications but the oncology Dr. Box with that type 2 diabetes significant diabetic neuropathy chronic back problems and a chronic pain syndromes multiple fall in the past brought to the emergency departments because patients more alter according to the and the patient's not feeling well very weak and called the oncology office and long megan to come to the emergency department In the ER patient initial blood work is all stable patients may be a dehydrated given the CT of the head is negative patient is running some low-grade fever decided to admit for further evaluations Patient is denied any chest pain denied any shortness of the breath but patients to feel very weak compared to when I saw in the office Patient's blood sugar is all stable Hospital Course Hospital Course: This is a 73-year-old male presents in the emergency department with the as above medical problem with altered mental status with a recently started the new chemotherapy for the progression of the multiple myeloma According to the patient's patient was more confused started developing the cough after starting the new chemotherapy At this point patient was admitting in the hospital for the dehydration's e ncephalopathy and rule out sepsis Patient started on IV antibiotics Patient is otherwise afebrile white count was normal patient CT of the chest some finding atypical finding in consult with the pulmonary and suggest the continues to antibiotics and follow outpatient Patient responds very well with the antibiotics and adding the Valtrex The patient's p.o. intake is fair The patient is walking the hallway without any problems Patient's Lyrica was also reduced to reduce the encephalopathy Patient otherwise currently not taking any medications which causing the patient's interfere with the brain functions Discussed with with the very extensively regarding the patient's current conditions Patient seen by oncology and pulmonary Patient is discharged home with home health and physical therapy and fall precautions Physical Exam Vital Signs: Temp Pulse Resp BP Pulse Ox 98.2 F 74 18 166/80 H 99 11/12/18 08:49 11/12/18 08:49 11/12/18 08:49 11/12/18 08:49 11/12/18 08:49 Intake & Output 11/11/18 11/12/18 11/13/18 06:59 06:59 06:59 Intake Total 2754 2105 Output Total 900 1302 Balance 1854 803 Weight 94.1 kg 93.6 kg General appearance: PRESENT: no acute distress, well-developed, well-nourished Head exam: PRESENT: atraumatic, normocephalic Eye exam: PRESENT: conjunctiva pink, EOMI, PERRLA. ABSENT: scleral icterus Ear exam: PRESENT: normal external ear exam Mouth exam: PRESENT: moist, tongue midline Neck exam: PRESENT: full ROM. ABSENT: carotid bruit, JVD, lymphadenopathy, thyromegaly Respiratory exam: PRESENT: clear to auscultation isaiah Cardiovascular exam: PRESENT: RRR. ABSENT: diastolic murmur, rubs, systolic murmur Vascular exam: PRESENT: normal capillary refill GI/Abdominal exam: PRESENT: normal bowel sounds, soft. ABSENT: distended, guarding, mass, organolmegaly, rebound, tenderness Rectal exam: PRESENT: deferred Musculoskeletal exam: PRESENT: ambulatory Neurological exam: PRESENT: alert, awake, oriented to person, oriented to place, oriented to time, oriented to situation, CN II-XII grossly intact. ABSENT: motor sensory deficit Psychiatric exam: PRESENT: appropriate affect, normal mood. ABSENT: homicidal ideation, suicidal ideation Skin exam: PRESENT: dry, intact, warm. ABSENT: cyanosis, rash Results Laboratory Results: 11/12/18 04:54 11/12/18 04:54 11/12/18 11/12/18 04:54 04:54 WBC 4.4 RBC 4.36 Hgb 14.1 Hct 40.2 MCV 92 MCH 32.4 MCHC 35.1 RDW 15.3 H Plt Count 129 L Seg Neutrophils % 62.9 Lymphocytes % 22.8 Monocytes % 10.6 Eosinophils % 2.4 Basophils % 1.3 Absolute Neutrophils 2.7 Absolute Lymphocytes 1.0 Absolute Monocytes 0.5 Absolute Eosinophils 0.1 Absolute Basophils 0.1 Sodium 139.4 Potassium 3.3 L Chloride 110 H Carbon Dioxide 22 Anion Gap 7 BUN 12 Creatinine 0.95 Est GFR ( Amer) > 60 Est GFR (Non-Af Amer) > 60 Glucose 108 Calcium 8.5 11/08/18 11/08/18 11/08/18 13:00 13:00 19:10 Creatine Kinase 53 L 56 CK-MB (CK-2) 0.99 Troponin I < 0.012 11/08/18 11/09/18 11/09/18 19:10 00:50 00:50 Creatine Kinase 54 L CK-MB (CK-2) 0.99 1.05 Troponin I < 0.012 < 0.012 Impressions: Chest X-Ray 11/08/18 12:24 IMPRESSION: NO ACUTE RADIOGRAPHIC FINDING IN THE CHEST. Head CT 11/08/18 12:24 IMPRESSION: Mild involutional changes of aging. Mild chronic microvascular ischemia. No acute intracranial imaging findings. EVIDENCE OF ACUTE STROKE: NO. Head MRI 11/08/18 13:48 IMPRESSION: Chronic ischemic changes. EVIDENCE OF ACUTE STROKE: NO. Chest CT 11/09/18 00:00 IMPRESSION: 1. Diffuse bilateral bronchial wall thickening and areas of minimal clustered nodularity, for example in the right upper lobe. Findings are suggestive of atypical infection such as atypical mycobacterium but otherwise no nspecific. No evidence of interstitial lung disease in the setting of cough. 2. Irregular nodule of the lateral left lower lobe measuring 1.2 cm, nonspecific although concerning for malignancy. This may be characterized by PET-CT or percutaneous biopsy. At minimum recommend three-month follow-up CT to ensure stability or resolution. Qualifiers - * PATIENT BEING DISCHARGED WITH ANY OF THE FOLLOWING DIAGNOSIS: No VTE patient discharged on overlapping Therapy?: Yes Plan Time Spent: Greater than 30 Minutes - Discharge home with the stable conditions with home health and physical therapy Follow with the oncology next week Follow in office in 1 week we will repeat the Chem-7
== END 2018-11-12 09:17 | disposition home health service (06) | DRG 840 ==
LOC: ER 11:45 → EH 14:02 → 3N 17:24
PROVIDERS: ADMIT Family Medicine; ATTEND Family Medicine
DX: C90.02 Multiple myeloma in relapse (principal); G93.41 Metabolic encephalopathy; J18.9 Pneumonia, unspecified organism; G89.4 Chronic pain syndrome; R29.6 Repeated falls; E11.42 Type 2 diabetes mellitus with diabetic polyneuropathy; R91.1 Solitary pulmonary nodule; E86.0 Dehydration; E78.5 Hyperlipidemia, unspecified; I10 Essential (primary) hypertension; E03.9 Hypothyroidism, unspecified; M54.32 Sciatica, left side; M54.31 Sciatica, right side; T40.605A Adverse effect of unspecified narcotics, initial encounter; G62.2 Polyneuropathy due to other toxic agents; T45.1X5A Adverse effect of antineoplastic and immunosuppressive drugs, initial encounter; F32.9 Major depressive disorder, single episode, unspecified; Z79.899 Other long term (current) drug therapy; Z79.4 Long term (current) use of insulin; Z51.11 Encounter for antineoplastic chemotherapy; Z79.890 Hormone replacement therapy
CPT/HCPCS: 36415; 70450; 70553; 71045; 71250; 80048; 80053; 80307; 81001; 82140; 82164; 82550; 82553; 82803; 82962; 83036; 83605; 83735; 84443; 84484; 85025; 85652; 87040; 87086; 93005; 93010; 99285; J0692; J1815; J2060; J3490; J7030

== ENCOUNTER 2018-12-06 15:19 | Emergency (ER) | payer MEDICARE, OTHER ==
[2018-12-06] MEDS ORDERED: MORPHINE SULFATE 10 MG/ML INJ IV ONE (15:55)
--- NOTE | 2018-12-06 15:59 | ER Document Report ---
ED Medical Screen (RME) - General Chief Complaint: Headache Stated Complaint: PAIN IN HEAD Time Seen by Provider: 12/06/18 15:39 Primary Care Provider: SEBASTIAN JAMIL MD [Primary Care Provider] - Follow up as needed TRAVEL OUTSIDE OF THE [place] IN LAST 30 DAYS: No - HPI Notes: 12/06/18 15:56 Patient is a 73-year-old male with a history of melanoma and on chemotherapy who presents to the emergency department complaining of a headache on the right side for 2-3 days it has been relatively constant and does not radiate. Patient was directed here by his oncologist, Dr. Faith. Patient is otherwise feeling well and is eating and drinking without difficulty. He is urinating normally. He is able to ambulate with assistance which is normal for him. Denies any fever, injury, neck pain, changes in vision/speech/mentation/hearing, URI, sore throat, chest pain, palpitations, syncope, cough, shortness of breath, wheeze, dyspnea, abdominal pain, nausea/vomiting/diarrhea, urinary retention, dysuria, hematuria, loss of control of bowel or bladder, numbness/tingling, saddle anesthesia, muscle paralysis/weakness, or rash. I did call and speak with Dr. Rucker. She recommends CT with and without as well as basic labs. I have treated and performed a rapid initial assessment of this patient. A comprehensive ED assessment and evaluation of the patient, analysis of test res ults and completion of medical decision making process will be conducted by additional ED providers. PHYSICAL EXAMINATION: GENERAL: Well-appearing, well-nourished and in no acute distress. A&Ox4. Answers questions appropriately. LUNGS: Breath sounds clear to auscultation bilaterally and equal. No wheezes rales or rhonchi. HEART: Regular rate and rhythm without murmurs, rubs, gallops. NEUROLOGICAL: Normal speech, normal gait. NIH 0. GCS 15. Cranial nerves grossly intact. PSYCH: Normal mood, normal affect. - Related Data Allergies/Adverse Reactions: No Known Allergies Allergy (Verified 12/06/18 15:29) Past Medical History - Social History Frequency of alcohol use: None Drug Abuse: None - Past Medical History Cardiac Medical History: Reports: Hx Hypercholesterolemia, Hx Hypertension Denies: Hx Congestive Heart Failure, Hx DVT, Hx Heart Attack, Hx Pulmonary Embolism Pulmonary Medical History: Denies: Hx Asthma, Hx COPD Neurological Medical History: Denies: Hx Seizures Endocrine Medical History: Reports: Hx Diabetes Mellitus Type 1, Hx Diabetes Mellitus Type 2, Hx Hypothyroidism. Denies: Hx Hyperthyroidism Renal/ Medical History: Denies: Hx Peritoneal Dialysis Malignancy Medical History: Reports Hx Bone Cancer GI Medical History: Denies: Hx Cirrhosis, Hx Gastroesophageal Reflux Disease, Hx Hepatitis Musculoskeltal Medical History: Reports Hx Arthritis Skin Medical History: Denies Hx Eczema, Denies Hx Psoriasis Psychiatric Medical History: Reports: Hx Depression - History of Infectious Medical History: Denies: Hx Hepatitis Past Surgical History: Reports: Hx Orthopedic Surgery - Bilateral shoulder and hip surgery., Hx Tonsillectomy, Other - cataracts - Immunizations Hx Diphtheria, Pertussis, Tetanus Vaccination: Yes Physical Exam - Vital signs Vitals: Temp Pulse Resp BP Pulse Ox 98.2 F 80 20 107/56 L 96 12/06/18 15:33 12/06/18 15:33 12/06/18 15:33 12/06/18 15:33 12/06/18 15:33 Course - Vital Signs Vital signs: Temp Pulse Resp BP Pulse Ox 98.2 F 80 20 107/56 L 96 12/06/18 15:33 12/06/18 15:33 12/06/18 15:33 12/06/18 15:33 12/06/18 15:33 Doctor's Discharge - Discharge Referrals: SEBASTIAN JAMIL MD [Primary Care Provider] - Follow up as needed
--- NOTE | 2018-12-06 16:17 | ER Document Report ---
ED General - General Chief Complaint: Headache Stated Complaint: PAIN IN HEAD Time Seen by Provider: 12/06/18 15:39 Primary Care Provider: SEBASTIAN JAMIL MD [Primary Care Provider] - Follow up in 3-5 days Notes: Patient is a 73-year-old male with history of multiple myeloma that presents to the emergency department for chief complaint of intermittent headaches. Patient states of the last 2-3 days has been having on and off headache, does seem to get better with Excedrin, but he was concerned given his history, that he may have a tumor so he called his oncologist and advised him to come to the emergency department to get a CT scan of the head. He denies having headache at this time, states that it comes and goes describes as a sharp pain on the right side of his head. He had a similar headache about a month ago, has been having them periodically throughout the year. He denies this being the worst headache he is ever had. And it was not sudden in onset. Denies any associated nausea, vomiting, abdominal pain, chest pain, shortness of breath or difficulty breathing. Past Medical History: Diabetes mellitus, neuropathy, multiple myeloma Past Surgical History: Total hip arthroplasties bilaterally, shoulder replacements Social History: Denies tobacco, alcohol or drug use. Family History: Reviewed and noncontributory for presenting illness Allergies: Reviewed, see documented allergy list. REVIEW OF SYSTEMS: Other than noted above, the 12 point review of systems was reviewed with the patient and were negative, all pertinent findings are included in the HPI. PHYSICAL EXAMINATION: Vital signs reviewed, nursing noted reviewed. GENERAL: Well-appearing, well-nourished and in no acute distress. HEAD: Atraumatic, normocephalic. EYES: Eyes appear normal, extraocular movements intact, sclera anicteric, conjunctiva are normal. PERRLA ENT: nares patent, oropharynx clear without exudates. Moist mucous membranes. No sinus tenderness with palpation, Cerumen impaction bilaterally in the ex ternal auditory canals NECK: Normal range of motion, supple without lymphadenopathy LUNGS: Breath sounds clear to auscultation bilaterally and equal. No wheezes rales or rhonchi. HEART: Regular rate and rhythm without murmurs ABDOMEN: Soft, nontender, normoactive bowel sounds. No rebound, guarding, or rigidity. No masses appreciated. EXTREMITIES: Nontender, good range of motion, no pitting or edema. NEUROLOGICAL: No focal neurological deficits. Moves all extremities spontaneously Motor and sensory grossly intact on exam. PSYCH: Normal mood, normal affect. SKIN: Warm, Dry, normal turgor, no rashes or lesions noted on exposed skin TRAVEL OUTSIDE OF THE [place] IN LAST 30 DAYS: No - Related Data Allergies/Adverse Reactions: No Known Allergies Allergy (Verified 12/06/18 15:29) Past Medical History - Social History Smoking Status: Never Smoker Frequency of alcohol use: None Drug Abuse: None Family History: Reviewed & Not Pertinent Patient has suicidal ideation: No Patient has homicidal ideation: No - Past Medical History Cardiac Medical History: Reports: Hx Hypercholesterolemia, Hx Hypertension Denies: Hx Congestive Heart Failure, Hx DVT, Hx Heart Attack, Hx Pulmonary Embolism Pulmonary Medical History: Denies: Hx Asthma, Hx COPD Neurological Medical History: Denies: Hx Seizures Endocrine Medical History: Reports: Hx Diabetes Mellitus Type 1, Hx Diabetes Mellitus Type 2, Hx Hypothyroidism. Denies: Hx Hyperthyroidism Renal/ Medical History: Denies: Hx Peritoneal Dialysis Malignancy Medical History: Reports Hx Bone Cancer GI Medical History: Denies: Hx Cirrhosis, Hx Gastroesophageal Reflux Disease, Hx Hepatitis Musculoskeletal Medical History: Reports Hx Arthritis Skin Medical History: Denies Hx Eczema, Denies Hx Psoriasis Psychiatric Medical History: Reports: Hx Depression - History of Infectious Medical History: Denies: Hx Hepatitis Past Surgical History: Reports: Hx Orthopedic Surgery - Bilateral shoulder and hip surgery., Hx Tonsillectomy, Other - cataracts - Immunizations Hx Diphtheria, Pertussis, Tetanus Vaccination: Yes Physical Exam - Vital signs Vitals: Temp Pulse Resp BP Pulse Ox 98.2 F 80 20 107/56 L 96 12/06/18 15:33 12/06/18 15:33 12/06/18 15:33 12/06/18 15:33 12/06/18 15:33 Course - Re-evaluation Re-evalutation: Patient seen and examined vital signs reviewed. Laboratory data and/or imaging were ordered as appropriate for the patient's presenting symptoms and complaint, with consideration of any critical or life threatening conditions that may be associated with their obtained history and exam as noted above. Patient was treated with morphine, ordered by triage provider Results were reviewed when available and demonstrated negative CT imaging for acute process, blood work unremarkable The patient was re-evaluated and was stable, no headache Evaluation was most consistent with headache, nonspecific, possible cluster type pattern, patient was given a prescription for Fioricet and advised follow-up with his primary care. Results were discussed with the patient at this point, after careful consideration I feel that that patient can be discharged from the emergency department, the patient was educated treatments and reasons to return to the e mergency department based on their presumed diagnosis as noted above, they were advised to followup with a primary care physician in 2-3 days. Patient was agreeable to plan of care. *Note is created using voice recognition software and may contain spelling, syntax or grammatical errors. Laboratory 12/06/18 12/06/18 12/06/18 16:27 16:27 17:39 WBC 5.8 RBC 5.10 Hgb 16.7 Hct 47.9 MCV 94 MCH 32.7 MCHC 34.9 RDW 16.9 H Plt Count 180 Seg Neutrophils % 46.4 Lymphocytes % 32.9 Monocytes % 18.3 H Eosinophils % 1.4 Basophils % 1.0 Absolute Neutrophils 2.7 Absolute Lymphocytes 1.9 Absolute Monocytes 1.1 Absolute Eosinophils 0.1 Absolute Basophils 0.1 Sodium 136.4 L Potassium 4.4 Chloride 106 Carbon Dioxide 23 Anion Gap 7 BUN 19 Creatinine 1.07 Est GFR ( Amer) > 60 Est GFR (Non-Af Amer) > 60 Glucose 191 H Calcium 9.8 Total Bilirubin 1.2 Direct Bilirubin 0.3 Neonat Total Bilirubin Not Reportable Neonat Direct Bilirubin Not Reportable Neonat Indirect Bili Not Reportable AST 34 ALT 45 Alkaline Phosphatase 67 Total Protein 6.7 Albumin 4.1 Urine Color YELLOW Urine Appearance CLEAR Urine pH 5.0 Ur Specific [place] 1.043 Urine Protein NEGATIVE Urine Glucose (UA) >=500 H Urine Ketones NEGATIVE Urine Blood NEGATIVE Urine Nitrite NEGATIVE Urine Bilirubin NEGATIVE Urine Urobilinogen NEGATIVE Ur Leukocyte Esterase NEGATIVE Urine Mucus (Auto) RARE Urine Ascorbic Acid NEGATIVE Head CT 12/06/18 15:54 IMPRESSION: Stable chronic changes of atrophy and microvascular ischemia. No evidence of acute intracranial process. EVIDENCE OF ACUTE STROKE: NO. - Vital Signs Vital signs: Temp Pulse Resp BP Pulse Ox 97.7 F 73 18 128/64 H 97 12/06/18 17:59 12/06/18 17:59 12/06/18 17:59 12/06/18 17:59 12/06/18 17:59 - Laboratory Result Diagrams: 12/06/18 16:27 12/06/18 16:27 Laboratory results interpreted by me: 12/06/18 12/06/18 12/06/18 16:27 16:27 17:39 RDW 16.9 H Monocytes % 18.3 H Sodium 136.4 L Glucose 191 H Urine Glucose (UA) >=500 H Discharge - Discharge Clinical Impression: Headache Qualifiers: Headache type: unspecified Headache chronicity pattern: unspecified pattern Intractability: not intractable Qualified Code(s): R51 - Headache Condition: Stable Disposition: HOME, SELF-CARE Instructions: Headache ([facility]) Additional Instructions: Please return to the emergency department if you have any worsening, or concern of your symptoms. Please return to the emergency department if you develop chest pain, difficulty breathing, severe abdominal pain, or ongoing vomiting. Please follow-up with your primary care physician in 2-3 days and any other recommended physicians. If prescribed, take all medications as directed. If you have any questions or concerns do not hesitate to return the emergency department for evaluation. Prescriptions: Butalb/Acetaminophen/Caffeine [Fioricet (50-325-40 mg) Tablet] 1 tab PO Q6H PRN #10 tab PRN Reason: headache Referrals: SEBASTIAN JAMIL MD [Primary Care Provider] - Follow up in 3-5 days
[2018-12-06 16:51] LABS: ABSOLUTE BASOPHILS # (AUTO) 0.1 10^3/uL (0.0-0.2); ABSOLUTE EOSINOPHILS # (AUTO) 0.1 10^3/uL (0.0-0.6); ABSOLUTE LYMPHOCYTES (AUTO) 1.9 10^3/uL (0.5-4.7); ABSOLUTE MONOCYTES (AUTO) 1.1 10^3/uL (0.1-1.4); ABSOLUTE NEUT (AUTO) 2.7 10^3/uL (1.7-8.2); EOSINOPHILS % (AUTO) 1.4 % (0-6); HEMATOCRIT 47.9 % (37.9-51.0); HEMOGLOBIN 16.7 g/dL (13.5-17.0); LYMPHOCYTES % (AUTO) 32.9 % (13-45); MEAN CORPUSCULAR HEMOGLOBIN 32.7 pg (27.0-33.4); MEAN CORPUSCULAR HGB CONC 34.9 g/dL (32.0-36.0); MEAN CORPUSCULAR VOLUME 94 fl (80-97); MONOCYTES % (AUTO) 18.3 % (3-13); PLATELET COUNT 180 10^3/uL (150-450); RED CELL DISTRIBUTION WIDTH 16.9 % (11.5-14.0); SEGMENTED NEUTROPHILS % (AUTO) 46.4 % (42-78); TOTAL CELLS COUNTED % (AUTO) 100 %; WHITE BLOOD COUNT 5.8 10^3/uL (4.0-10.5)
[2018-12-06 17:09] LABS: ALANINE AMINOTRANSFERASE 45 U/L (21-72); ALBUMIN 4.1 g/dL (3.5-5.0); ALKALINE PHOSPHATASE 67 U/L (38-126); ANION GAP 7 (5-19); ASPARTATE AMINO TRANSFERASE 34 U/L (17-59); BILIRUBIN,DIRECT 0.3 mg/dL (0.0-0.4); BILIRUBIN,TOTAL 1.2 mg/dL (0.2-1.3); BLOOD UREA NITROGEN 19 mg/dL (7-20); CALCIUM 9.8 mg/dL (8.4-10.2); CARBON DIOXIDE 23 mmol/L (22-30); CHLORIDE 106 mmol/L (98-107); GLUCOSE 191 mg/dL (75-110); POTASSIUM 4.4 mmol/L (3.6-5.0); SODIUM 136.4 mmol/L (137-145); TOTAL PROTEIN 6.7 g/dL (6.3-8.2)
--- NOTE | 2018-12-06 17:09 | RADIOLOGY REPORT (SQ) ---
EXAM DESCRIPTION: CT HEAD COMBO COMPLETED DATE/TIME: 12/06/2018 4:57 pm REASON FOR STUDY: DELEON, h/o melanoma on chemo COMPARISON: 11/08/2018 TECHNIQUE: Axial images acquired through the brain without and with intravenous contrast. Images re viewed with bone, brain, and subdural windows. Additional sagittal and coronal reconstructions were generated. Images stored on PACS. All CT scanners at this facility use dose modulation, iterative reconstruction, and/or weight based d osing when appropriate to reduce radiation dose to as low as reasonably achievable (ALARA). [facility]: Dose Right [facility]: CareDose [facility]: Dose Right [facility]: Teradose 4D [facility]: Jarvam CONTRAST TYPE AND DOSE: 100 cc Omnipaque 350 RENAL FUNCTION: Creatinine 0.95 RADIATION DOSE: CT Rad equipment meets quality standard of care and radiation dose reduction techniq ues were employed. CTDIvol: 53.2 mGy. DLP: 2513 mGy-cm. . LIMITATIONS: None. FINDINGS: VENTRICLES: Prominent. CEREBRUM: No masses. No hemorrhage. No midline shift. Areas of low density in the white matter mos t likely due to chronic micro-vascular ischemic change. No evidence for acute infarction. No enhanc ing lesions. CEREBELLUM: No masses. No hemorrhage. No alteration of density. No evidence for acute infarction. No enhancing lesions. EXTRAAXIAL SPACES: Age-related involutional change. No fluid collections. No masses. No enhancing lesions. ORBITS AND GLOBE: No intra- or extraconal masses. Normal contour of globe without masses. CALVARIUM: No fracture. PARANASAL SINUSES: Polypoid mucosal thickening in the left maxillary sinus. Remaining sinuses are cl ear per fluid or mucosal thickening. SOFT TISSUES: No mass or hematoma. OTHER: No other significant finding. IMPRESSION: Stable chronic changes of atrophy and microvascular ischemia. No evidence of acute intr acranial process. EVIDENCE OF ACUTE STROKE: NO. TECHNICAL DOCUMENTATION: JOB ID: [id number] Quality ID # [id number]: Final reports with documentation of one or more dose reduction techniques (e.g., Au tomated exposure control, adjustment of the mA and/or kV according to patient size, use of iterative reconstruction technique) 2010 [employer]- All Rights Reserved Reading location - IP/workstation name: [email or web address]
[2018-12-06 18:01] VITALS: BP 128/64
[2018-12-06 21:07] LABS: APPEARANCE,URINE CLEAR; BILIRUBIN,URINE NEGATIVE (NEGATIVE); COLOR,URINE YELLOW; GLUCOSE, URINE >=500 mg/dL (NEGATIVE); KETONES,URINE NEGATIVE (NEGATIVE); LEUKOCYTE ESTERASE,URINE NEGATIVE (NEGATIVE); NITRITE,URINE NEGATIVE (NEGATIVE); PROTEIN,URINE NEGATIVE (NEGATIVE); URINE SPECIFIC GRAVITY 1.043; UROBILINOGEN,URINE NEGATIVE mg/dL (<2.0)
== END 2018-12-06 18:01 | disposition home or self-care (01) ==
LOC: ER 15:19
DX: R51 Headache (principal); Z79.899 Other long term (current) drug therapy; E11.9 Type 2 diabetes mellitus without complications; I10 Essential (primary) hypertension
CPT/HCPCS: 99284; 96374; 36415; 85025; 80053; 81001; 70470; J2270